=== PATIENT | female | born 1975 | race Two or more races ===

== ENCOUNTER 2020-03-12 09:19 | Emergency (ER) | payer MEDICAID, SELFPAY ==
[2020-03-12 09:40] VITALS: BP 131/63; PULSE 80; RESP 24; TEMP 36.7; O2SAT 99; BMI 43.7
--- NOTE | 2020-03-12 09:50 | CT_ITS ---
EXAMINATION: CT ABDOMEN AND PELVIS WITH CONTRAST CLINICAL INFORMATION: Left flank pain, upper abdominal pain. Prior history splenic rupture. COMPARISON: CT abdomen and pelvis with contrast 12/22/2019 TECHNIQUE: Multidetector volumetric images were obtained from the superior aspect of the liver through the pubic symphysis following administration 85 mL of Omnipaque 350 intravenous contrast. Sagittal and coronal reformatted images were obtained on the technologist's workstation. Oral contrast: No This CT examination was performed using dose optimization techniques as appropriate, variously including the following: *Automated exposure control *Adjustment of mA and/or kV according to patient size (this includes techniques or standardized protocols for targeted exams where dose is matched to indication/reason for exam; i.e. extremities or head) *Use of iterative reconstruction technique DLP: 1001 mGy-cm FINDINGS: LUNG BASES: The visualized lung bases are unremarkable. LIVER, GALLBLADDER, AND BILIARY TREE: The liver is normal in size, shape, and attenuation. No focal hepatic lesion or biliary ductal dilatation is present. The gallbladder is unremarkable with no evidence of radiopaque gallstones, gallbladder wall thickening, or obvious pericholecystic inflammatory changes. PANCREAS: Unremarkable. SPLEEN: Unremarkable. ADRENAL GLANDS: Unremarkable. KIDNEYS AND URETERS: The kidneys are normal in size, shape, and attenuation. No hydronephrosis, hydroureter, or calculi seen. No perinephric stranding. BLADDER: The urinary bladder is fully distended. No focal wall thickening or bladder calculus. GASTROINTESTINAL TRACT: There is moderate stool throughout the colon. No bowel obstruction or focal inflammatory changes in the bowel or mesentery. The appendix is normal. There is no ascites or fluid collection. No pneumatosis or free air. ABDOMINAL WALL: No significant hernia is appreciated. LYMPH NODES: No lymphadenopathy. VASCULAR: Unremarkable. PELVIC VISCERA: No significant adnexal mass or pelvic ascites. OSSEOUS STRUCTURES: Unremarkable. CT/CT abdomen pelvis w con IMPRESSION: 1. No bowel obstruction or inflammatory changes in abdomen or pelvis. Normal appendix. 2. No hydronephrosis, calculi, or perinephric stranding.
--- NOTE | 2020-03-12 09:55 | ED_ITS ---
HPI - Abdominal Pain General Chief Complaint: Anxiety Time Seen by Provider: 03/12/20 09:34 Source: patient Mode of arrival: ambulatory Limitations: no limitations History of Present Illness HPI narrative: 44 y/o female with history of RA on MTX and fibromyalgia who presents from outpatient radiology with anxiety and worsening LUQ/left flank pain. She states she was supposed to get an abd ultrasound today for the pain that she has been experiencing for the last 2 weeks. In 2014 she had a similar episode of pain and was found to have a non-traumatic splenic hematoma. This was noted to be subacute, she was seen by Surgery and sent home with pain management and routine follow up. MD elicited complaint: abdominal pain and flank pain Pertinent past history: other (hx splenic hematoma) Onset (ago): week(s) (2) Pain Consistency: constant Location: LUQ and L flank Severity: similar to previous episodes Quality: stabbing and sharp Radiation: none Migration to: L flank Exacerbating factors: movement Relieving factors: nothing Context: history of similar episodes Associated symptoms: nausea Related Data Date of Last Menstrual Period: 03/05/20 Patient : No Home Medications Medication Instructions Recorded Confirmed Cymbalta 03/12/20 Lasix 03/12/20 Prilosec 03/12/20 methotrexate 03/12/20 vitamin D3-folic acid 03/12/20 Previous Rx's Medication Instructions Recorded cyclobenzaprine 10 mg PO TID PRN #15 tab 03/12/20 famotidine [Pepcid] 40 mg PO BEDTIME #14 tab 03/12/20 Allergies Allergy/AdvReac Type Severity Reaction Status Date / Time aspirin [ASPIRIN] Allergy Intermediate RASH Unverified 01/23/20 16:11 Penicillins [PENICILLINS] Allergy Intermediate RASH Unverified 01/23/20 16:11 codeine [CODEINE] Allergy Unknown VOMITING, Unverified 01/23/20 16:11 nausea and vomiting penicillin V Allergy Unknown hives Verified 12/20/19 00:00 Review of Systems Review of Systems Constitutional: No Fever, No Chills ENT/Mouth: No sore throat, No Rhinorrhea, No Swallowing Difficulty Eyes: No Eye Pain, No Swelling, No Redness Cardiovascular: No Chest Pain, No SOB, No Orthopnea, No Edema Respiratory: No Cough, No Sputum, No Wheezing, No dyspnea Gastrointestinal: + Nausea, No Vomiting, No Diarrhea, + abdominal Pain, No Hematochezia, No Melena Genitourinary: No Dysuria, No Urinary Frequency, No Hematuria Musculoskeletal: No joint pain, + Myalgias (chronic) Skin: No Skin Lesions, No rash Neuro: No Weakness, No Numbness, No Dizziness, No Headache Psych: No Anxiety/Panic, No Depression Heme/Lymph: No Bruising, No Lymphadenopathy Endocrine: No Polyuria, No Polydipsia Physical Exam Vital Signs: Vital Signs: Vital Signs Temp Pulse Resp BP Pulse Ox 03/12/20 12:02 85 16 134/81 98 03/12/20 10:33 18 03/12/20 09:40 98.1 F 80 24 H 131/63 99 Body Mass Index 43.7 Appearance: Alert. Oriented X3. No acute distress. Eyes: Pupils equal, round and reactive to light. ENT: Pharynx normal. Neck: Normal inspection. Neck supple. CVS: Normal heart rate and rhythm. Pulses normal. Respiratory: No respiratory distress. Breath sounds normal. Abdomen: Obese, LUQ tenderness, left flank tenderness. No regound or guarding. Skin: Skin warm and dry. Normal skin color. Normal skin turgor. No rashes, no ecchymosis. Extremities: No lower extremity edema. Neuro: Oriented X 3. No motor deficit. No sensory deficit. Course Course Course Narrative: 44 y/o with hx RA on metotrexate, fibromyalgia presenting with left flank pain, LUQ pain x2 weeks. Similar in nature to prior splenic hematoma which was in 2015. Worse with movement so possible musculoskeletal in nature. Doubt kidney stone. Will get CT scan w/ contrast to further assess as well as labs, coags. IVF, zofran and morphine ordered. Dispo pending results and improvement. Reevaluation(s) Reevaluation #1: CT scan is unremarkable - normal kidneys and spleen. Will treat for possible gastritis and muscular strain. She agrees to follow up with PCP and modify her diet. MDM - Abdominal Pain MDM Narrative Medical decision making narrative: concern for recurrent spontaneous splenic hematoma or possible infarct. CT scan showed normal spleen. Lab Data Result diagrams: 03/12/20 10:27 03/12/20 10:26 Labs: Lab Results 03/12/20 03/12/20 03/12/20 Range/Units 10:26 10:26 10:26 WBC (4.8-10.8) X10*3/uL RBC (4.20-5.50) X10*6/uL Hgb (12.0-16.0) g/dl Hct (37-47) % MCV (80-98) fL MCH (27.0-33.0) pg MCHC (31.0-35.0) g/dl RDW (11.0-16.0) % Plt Count (160-400) X10*3/uL MPV (9.4-12.3) fL Immature Gran % (Auto) (0.0-0.4) % Neut % (Auto) (45-73) % Lymph % (Auto) (20-40) % [place] % (Auto) (2-11) % Eos % (Auto) (0-4) % Baso % (Auto) (0-2) % Lymph # (Auto) (1.2-4.9) X10*3/uL [place] # (Auto) (0.1-1.2) X10*3/uL Eos # (Auto) (0.0-0.4) X10*3/uL Baso # (Auto) (0.0-0.2) X10*3/uL Abs Immat Gran (auto) (0.00-0.03) X10*3/uL Absolute Neuts (auto) (2.0-8.3) X10*3/uL Absolute Nucleated RBC (0.0-0.012) X10*3/uL Nucleated RBC % (auto) (0.0-0.2) /100WBC PT 10.8 (10.8-13.0) SEC INR 0.9 (0.9-1.1) APTT 27.4 (24.1-38.0) SEC Sodium 139 (135-145) mmol/L Potassium 4.3 (3.3-5.1) mmol/l Chloride 105 (96-108) mmol/L Carbon Dioxide 24 (22-29) mmol/L Anion Gap 14 (12-20) BUN 11 (9-16) mg/dL Creatinine 0.74 (0.5-1.4) mg/dL Estim Creat Clear Calc 109.3 Estimated GFR > 60 Random Glucose 89 (60-115) mg/dL Calcium 8.4 (8.4-10.2) mg/dL Total Bilirubin 0.2 (0.0-1.0) mg/dL Direct Bilirubin 0.2 (0.0-0.5) mg/dL AST 22 (5-31) U/L ALT 21 (0-31) U/L Alkaline Phosphatase 51 (39-117) U/L Total Protein 7.5 (6.5-8.0) g/dL Albumin 4.1 (3.5-5.0) g/dL Beta HCG, Quant < 2 Cancelled mIU/mL 03/12/20 Range/Units 10:27 WBC 12.0 H (4.8-10.8) X10*3/uL RBC 4.49 (4.20-5.50) X10*6/uL Hgb 13.8 (12.0-16.0) g/dl Hct 42.0 (37-47) % MCV 93.5 (80-98) fL MCH 30.7 (27.0-33.0) pg MCHC 32.9 (31.0-35.0) g/dl RDW 16.1 H (11.0-16.0) % Plt Count 307 (160-400) X10*3/uL MPV 9.3 L (9.4-12.3) fL Immature Gran % (Auto) 0.3 (0.0-0.4) % Neut % (Auto) 86.6 H (45-73) % Lymph % (Auto) 8.5 L (20-40) % [place] % (Auto) 3.7 (2-11) % Eos % (Auto) 0.5 (0-4) % Baso % (Auto) 0.4 (0-2) % Lymph # (Auto) 1.0 L (1.2-4.9) X10*3/uL [place] # (Auto) 0.5 (0.1-1.2) X10*3/uL Eos # (Auto) 0.1 (0.0-0.4) X10*3/uL Baso # (Auto) 0.1 (0.0-0.2) X10*3/uL Abs Immat Gran (auto) 0.04 H (0.00-0.03) X10*3/uL Absolute Neuts (auto) 10.4 H (2.0-8.3) X10*3/uL Absolute Nucleated RBC 0.000 (0.0-0.012) X10*3/uL Nucleated RBC % (auto) 0.0 (0.0-0.2) /100WBC PT (10.8-13.0) SEC INR (0.9-1.1) APTT (24.1-38.0) SEC Sodium (135-145) mmol/L Potassium (3.3-5.1) mmol/l Chloride (96-108) mmol/L Carbon Dioxide (22-29) mmol/L Anion Gap (12-20) BUN (9-16) mg/dL Creatinine (0.5-1.4) mg/dL Estim Creat Clear Calc Estimated GFR Random Glucose (60-115) mg/dL Calcium (8.4-10.2) mg/dL Total Bilirubin (0.0-1.0) mg/dL Direct Bilirubin (0.0-0.5) mg/dL AST (5-31) U/L ALT (0-31) U/L Alkaline Phosphatase (39-117) U/L Total Protein (6.5-8.0) g/dL Albumin (3.5-5.0) g/dL Beta HCG, Quant mIU/mL Critical Care Time Critical Care Time Critical Care Time: No Discharge Plan Discharge Clinical Impression: Muscle strain Gastritis Qualifiers: Gastritis type: unspecified gastritis Chronicity: acute Gastritis bleeding: without bleeding Qualified Code(s): K29.00 - Acute gastritis without bleeding Patient Disposition: Home, Self-Care Instructions: Gastritis (ED) Additional Instructions: Stick to a bland diet - avoid greasy, fatty or acidic foods. Eat small meals throughout the day, avoid large meals. Take the prescribed antacid medication. Your CT scan today was normal and blood work was unremarkable. Follow up with the GI doctor if your symptoms persist. Follow up with your Primary Care doctor next week. Prescriptions: New famotidine [Pepcid] 40 mg tablet 40 mg PO BEDTIME Qty: 14 RF: 0 cyclobenzaprine 10 mg tablet 10 mg PO TID PRN (Reason: muscle spasm) Qty: 15 RF: 0 No Action Cymbalta RF: 0 Lasix RF: 0 Prilosec RF: 0 methotrexate RF: 0 vitamin D3-folic acid RF: 0 Referrals: Michael Schultz [Physician] - 1 week Interventions: ED Discharge Assessment Last Done: 03/12/20 13:49 Discharge Date/Time: 03/12/20 13:51 [facility] Past Medical History Medical History (Updated 03/12/20 @ 13:20 by MACRINA Epps) Arthritis Date of Last Menstrual Period: 03/05/20 Social History Social History Smoked in Last 30 Days: No Use of substances other than those prescribed or required for medical reasons: No Advance Directives: No Advance Directives Information Provided: No
[2020-03-12] MEDS: 0.9 % Sodium Chloride 1,000 ML 999 ML IVCONT (10:32)
[2020-03-12 10:33] VITALS: RESP 18
[2020-03-12] MEDS: Morphine Sulfate 4 MG/ML CARTRIDGE IVPUSH (10:33)
[2020-03-12] MEDS: ondansetron HCL 4 MG/2 ML VIAL IVPUSH (10:33)
[2020-03-12 10:42] LABS: MANUAL DIFF FLAG NO
--- NOTE | 2020-03-12 10:49 | PC.NURSE ---
iv infiltrated. aware
[2020-03-12 10:51] LABS: Basophils Absolute Auto 0.1 X10*3/uL (0.0-0.2); Basophils Percent Auto 0.4 % (0-2); Eosinophils Absolute Auto 0.1 X10*3/uL (0.0-0.4); Eosinophils Percent Auto 0.5 % (0-4); Hemoglobin 13.8 g/dl (12.0-16.0); Imm Gran Abs Auto 0.04 X10*3/uL (0.00-0.03); Imm Gran Pct Auto 0.3 % (0.0-0.4); Lymphocytes Percent Auto 8.5 % (20-40); Mean Corpuscular HGB Conc 32.9 g/dl (31.0-35.0); Mean Corpuscular Hemoglobin 30.7 pg (27.0-33.0); Mean Corpuscular Volume 93.5 fL (80-98); Mean Platelet Volume 9.3 fL (9.4-12.3); Monocytes Absolute Auto 0.5 X10*3/uL (0.1-1.2); Monocytes Percent Auto 3.7 % (2-11); Neutrophils Absolute Auto 10.4 X10*3/uL (2.0-8.3); Neutrophils Percent Auto 86.6 % (45-73); Platelet Count 307 X10*3/uL (160-400); Red Blood Count 4.49 X10*6/uL (4.20-5.50); Red Cell Distribution Width 16.1 % (11.0-16.0)
[2020-03-12 10:57] LABS: INTERNATIONAL NORM RATIO 0.9 (0.9-1.1); Prothrombin Time 10.8 SEC (10.8-13.0)
[2020-03-12 11:00] LABS: Partial Thromboplastin Time 27.4 SEC (24.1-38.0)
[2020-03-12 11:13] LABS: Alanine Aminotransferase 21 U/L (0-31); Albumin Level 4.1 g/dL (3.5-5.0); Alkaline Phosphatase 51 U/L (39-117); Anion Gap 14 (12-20); Aspartate Amino Transferase 22 U/L (5-31); Bilirubin Direct 0.2 mg/dL (0.0-0.5); Bilirubin Total 0.2 mg/dL (0.0-1.0); Blood Urea Nitrogen 11 mg/dL (9-16); Calcium 8.4 mg/dL (8.4-10.2); Carbon Dioxide 24 mmol/L (22-29); Chloride 105 mmol/L (96-108); Creatinine Clr Calc Pharmacy 109.3; Estimated Glomerular Filt Rate > 60; Glucose Random 89 mg/dL (60-115); Potassium 4.3 mmol/l (3.3-5.1); Sodium 139 mmol/L (135-145); Total Protein 7.5 g/dL (6.5-8.0)
[2020-03-12 11:20] LABS: HCG Quantitative < 2 mIU/mL
--- NOTE | 2020-03-12 11:44 | PC.NURSE ---
pt to ct at this time
[2020-03-12] MEDS: iohexoL 350 MG/ML 100 ML INFUS..BTL 85 ML IV (12:00)
--- NOTE | 2020-03-12 12:01 | PC.NURSE ---
pt returned from ct
[2020-03-12 12:02] VITALS: BP 134/81; PULSE 85; RESP 16; O2SAT 98
== END 2020-03-12 13:51 | disposition home or self-care (01) ==
LOC: HO.ED 09:20
PROVIDERS: Physician Assistant; Emergency Provider Emergency Medicine; PCP Nurse Practitioner Family; Visit Provider Registered Nurse
DX: K29.00 Acute gastritis without bleeding (principal); S39.011A Strain of muscle, fascia and tendon of abdomen, initial encounter; F41.1 Generalized anxiety disorder; F43.0 Acute stress reaction; R10.12 Left upper quadrant pain; X58.XXXA Exposure to other specified factors, initial encounter; Y93.9 Activity, unspecified; Y92.9 Unspecified place or not applicable; Y99.9 Unspecified external cause status; Z79.899 Other long term (current) drug therapy
CPT/HCPCS: 36415; 74177; 80048; 80076; 84702; 85025; 85610; 85730; 96361; 96374; 96375; 99284; J2270; J2405; Q9967

== ENCOUNTER 2020-03-19 11:05 | Outpatient (REF) | payer MEDICAID, SELFPAY ==
[2020-03-19 12:31] LABS: MANUAL DIFF FLAG NO
[2020-03-19 12:50] LABS: Basophils Absolute Auto 0.1 X10*3/uL (0.0-0.2); Basophils Percent Auto 0.7 % (0-2); Eosinophils Absolute Auto 0.2 X10*3/uL (0.0-0.4); Eosinophils Percent Auto 1.7 % (0-4); Hematocrit 41.8 % (37-47); Hemoglobin 13.7 g/dl (12.0-16.0); Imm Gran Abs Auto 0.04 X10*3/uL (0.00-0.03); Imm Gran Pct Auto 0.5 % (0.0-0.4); Lymphocytes Absolute Auto 1.8 X10*3/uL (1.2-4.9); Lymphocytes Percent Auto 20.9 % (20-40); Mean Corpuscular HGB Conc 32.8 g/dl (31.0-35.0); Mean Corpuscular Hemoglobin 30.1 pg (27.0-33.0); Mean Corpuscular Volume 91.9 fL (80-98); Mean Platelet Volume 9.7 fL (9.4-12.3); Monocytes Absolute Auto 0.8 X10*3/uL (0.1-1.2); Monocytes Percent Auto 9.2 % (2-11); Neutrophils Absolute Auto 5.8 X10*3/uL (2.0-8.3); Platelet Count 304 X10*3/uL (160-400); Red Blood Count 4.55 X10*6/uL (4.20-5.50); Red Cell Distribution Width 15.9 % (11.0-16.0); White Blood Count 8.7 X10*3/uL (4.8-10.8)
[2020-03-19 13:13] LABS: Alanine Aminotransferase 20 U/L (0-31); Alkaline Phosphatase 54 U/L (39-117); Anion Gap 10 (12-20); Aspartate Amino Transferase 18 U/L (5-31); Bilirubin Total 0.3 mg/dL (0.0-1.0); Blood Urea Nitrogen 10 mg/dL (9-16); C Reactive Protein 0.35 mg/dL (< or = 0.50); Calcium 8.8 mg/dL (8.4-10.2); Carbon Dioxide 28 mmol/L (22-29); Chloride 104 mmol/L (96-108); Estimated Glomerular Filt Rate > 60; Glucose Random 76 mg/dL (60-115); Potassium 4.4 mmol/l (3.3-5.1); Sodium 138 mmol/L (135-145); Total Protein 7.3 g/dL (6.5-8.0)
== END 2020-03-19 11:06 | disposition home or self-care (01) ==
LOC: HO.LAB 11:05
PROVIDERS: PCP Nurse Practitioner Family; Referring Provider Nurse Practitioner Family; Visit Provider Student in an Organized Health Care Education/Training Program
DX: M06.00 Rheumatoid arthritis without rheumatoid factor, unspecified site (principal); Z79.899 Other long term (current) drug therapy; D72.829 Elevated white blood cell count, unspecified
CPT/HCPCS: 36415; 80053; 85025; 86140; 90686; 99212

== ENCOUNTER 2020-11-20 12:21 | Outpatient (REF) | payer MEDICAID, SELFPAY ==
[2020-11-20 13:03] LABS: MANUAL DIFF FLAG NO
[2020-11-20 13:15] LABS: Basophils Percent Auto 0.6 % (0-2); Eosinophils Absolute Auto 0.2 X10*3/uL (0.0-0.4); Eosinophils Percent Auto 3.4 % (0-4); Hemoglobin 11.5 g/dl (12.0-16.0); Imm Gran Abs Auto 0.01 X10*3/uL (0.00-0.03); Imm Gran Pct Auto 0.1 % (0.0-0.4); Lymphocytes Absolute Auto 1.5 X10*3/uL (1.2-4.9); Lymphocytes Percent Auto 21.6 % (20-40); Mean Corpuscular HGB Conc 30.3 g/dl (31.0-35.0); Mean Corpuscular Hemoglobin 25.5 pg (27.0-33.0); Mean Corpuscular Volume 84.3 fL (80-98); Mean Platelet Volume 9.7 fL (9.4-12.3); Monocytes Absolute Auto 0.4 X10*3/uL (0.1-1.2); Monocytes Percent Auto 5.9 % (2-11); Neutrophils Absolute Auto 4.8 X10*3/uL (2.0-8.3); Neutrophils Percent Auto 68.4 % (45-73); Platelet Count 290 X10*3/uL (160-400); Red Blood Count 4.51 X10*6/uL (4.20-5.50); Red Cell Distribution Width 16.1 % (11.0-16.0)
[2020-11-20 13:58] LABS: Erythrocyte Sedimentation Rate 6 MM/HR (0-20)
[2020-11-20 14:11] LABS: Alanine Aminotransferase 25 U/L (0-31); Albumin Level 3.5 g/dL (3.5-5.0); Alkaline Phosphatase 52 U/L (39-117); Anion Gap 11 (12-20); Aspartate Amino Transferase 24 U/L (5-31); Bilirubin Total 0.4 mg/dL (0.0-1.0); Blood Urea Nitrogen 6 mg/dL (9-16); C Reactive Protein 0.28 mg/dL (< or = 0.50); Calcium 8.6 mg/dL (8.4-10.2); Carbon Dioxide 25 mmol/L (22-29); Chloride 108 mmol/L (96-108); Estimated Glomerular Filt Rate > 60; Glucose Random 126 mg/dL (60-115); Potassium 4.3 mmol/L (3.3-5.1); Sodium 140 mmol/L (135-145); Total Protein 6.6 g/dL (6.5-8.0)
== END 2020-11-20 12:22 | disposition home or self-care (01) ==
LOC: HO.LAB 12:21
PROVIDERS: PCP Nurse Practitioner Family; Visit Provider Student in an Organized Health Care Education/Training Program
DX: M06.00 Rheumatoid arthritis without rheumatoid factor, unspecified site (principal)
CPT/HCPCS: 36415; 80053; 85025; 85652; 86140

== ENCOUNTER 2020-11-24 15:54 | Outpatient (REF) | payer MEDICAID, SELFPAY ==
--- NOTE | ~2020-11-24 | XR_ITS ---
EXAMINATION: XR RIGHT SHOULDER XR RIGHT ELBOW CLINICAL INFORMATION: Rheumatoid arthritis COMPARISON: 11/16/2012 TECHNIQUE: 3 views of the right elbow and 4 views of the right shoulder. FINDINGS: Views of the right shoulder do not demonstrate any evidence of acute fracture or dislocation. No calcific tendinitis. Glenohumeral joint unremarkable. No widening of the coracoclavicular space is seen. There is mild spurring seen about the acromioclavicular joint. 3 views of the right elbow do not demonstrate any evidence of acute fracture or dislocation. Joint spaces are maintained. No significant spurring is seen. No elbow effusion is noted. XR/XR shoulder RT min 2V IMPRESSION: No significant abnormality identified involving the right shoulder and right elbow.
--- NOTE | ~2020-11-24 | XR_ITS ---
EXAMINATION: XR RIGHT SHOULDER XR RIGHT ELBOW CLINICAL INFORMATION: Rheumatoid arthritis COMPARISON: 11/16/2012 TECHNIQUE: 3 views of the right elbow and 4 views of the right shoulder. FINDINGS: Views of the right shoulder do not demonstrate any evidence of acute fracture or dislocation. No calcific tendinitis. Glenohumeral joint unremarkable. No widening of the coracoclavicular space is seen. There is mild spurring seen about the acromioclavicular joint. 3 views of the right elbow do not demonstrate any evidence of acute fracture or dislocation. Joint spaces are maintained. No significant spurring is seen. No elbow effusion is noted. XR/XR elbow RT 2V IMPRESSION: No significant abnormality identified involving the right shoulder and right elbow.
== END 2020-11-24 15:55 | disposition home or self-care (01) ==
LOC: HO.XRAY 15:54
PROVIDERS: PCP Nurse Practitioner Family; Visit Provider Student in an Organized Health Care Education/Training Program
DX: M06.00 Rheumatoid arthritis without rheumatoid factor, unspecified site (principal); Z79.899 Other long term (current) drug therapy
CPT/HCPCS: 73030; 73070; 99212

== ENCOUNTER 2021-04-14 10:56 | Outpatient (REF) | payer MEDICAID, SELFPAY ==
--- NOTE | ~2021-04-14 | US_ITS ---
EXAMINATION: US PELVIS CLINICAL INFORMATION: Excessive, frequent bleeding. COMPARISON: CT scan of the abdomen and pelvis dated 03/12/2020. TECHNIQUE: Ultrasound of the pelvis is performed using both transabdominal and transvaginal transducers along with Doppler. Transvaginal imaging is performed due to inadequate visualization transabdominally. FINDINGS: Uterus: Anteverted/anteflexed measuring 9.6 x 4.8 x 5.6 cm. The endometrial stripe measures up to 1.2 cm without focal abnormality. The cervix is unremarkable. Minimal free fluid in the cul-de-sac. Right ovary: Questionably visualized measuring 1.9 x 1.8 x 1.5 cm. No right adnexal abnormality. Color Doppler showed no abnormal vascular flow. Left ovary: 4.6 x 2.8 x 3.4 cm with a volume of 23 mL. An anechoic dominant follicle measures 2.9 cm. Color Doppler showed no abnormal vascular flow. US/US pelvic and transvaginal IMPRESSION: 1. No significant uterine abnormality. 2. Left ovarian dominant follicle demonstrates benign features. Suboptimal evaluation of the right ovary without overt right adnexal abnormality.
== END 2021-04-14 10:57 | disposition home or self-care (01) ==
LOC: HO.US 10:56
PROVIDERS: Absent Provider Registered Nurse; PCP Registered Nurse; Visit Provider Advanced Practice Midwife
DX: N92.0 Excessive and frequent menstruation with regular cycle (principal)
CPT/HCPCS: 76830; 76856

== ENCOUNTER 2021-05-05 09:10 | Outpatient (REF) | payer MEDICAID, SELFPAY ==
--- NOTE | ~2021-05-05 | MM_ITS ---
EXAMINATION: MM SCREENING DIGITAL BREAST TOMOSYNTHESIS, BILATERAL CLINICAL INFORMATION: Screening. Asymptomatic. The lifetime risk of breast cancer based on the Tyrer-Cuzick Model is 8%. COMPARISON: Mammography: 01/20/2020, 09/25/2018, 02/14/2018, 08/15/2017 TECHNIQUE: Digital breast tomosynthesis is performed in both the craniocaudal and mediolateral oblique views along with computer-aided detection (CAD). Synthesized 2D images are generated from the tomosynthesis. Additional exaggerated left CC view is provided. FINDINGS: There are scattered areas of fibroglandular density (ACR BI-RADS breast composition Category b). There are no significant masses, abnormal calcifications, or other abnormalities. There is stable small circumscribed nodule 12:00 right breast corresponding to a cyst on prior ultrasound. The axilla and skin contours are unremarkable. MM/MM tomosynthesis screening BI IMPRESSION: No mammographic evidence of malignancy. ASSESSMENT: BI-RADS 2: Benign RECOMMENDATION: Routine annual mammography screening. This patient's information was entered into a reminder system with a target due date for their next mammogram.
== END 2021-05-05 09:11 | disposition home or self-care (01) ==
LOC: HO.MAMMO 09:10
PROVIDERS: Visit Provider Registered Nurse
DX: Z12.31 Encounter for screening mammogram for malignant neoplasm of breast (principal)
CPT/HCPCS: 77063; 77067

== ENCOUNTER 2021-05-20 12:39 | Outpatient (REF) | payer MEDICAID, SELFPAY ==
[2021-05-20 14:55] LABS: Hematocrit 35.1 % (37.0-47.0); Mean Corpuscular HGB Conc 31.3 g/dl (31.0-35.0); Mean Corpuscular Hemoglobin 24.9 pg (27.0-33.0); Mean Corpuscular Volume 79.4 fL (80.0-98.0); Mean Platelet Volume 9.3 fL (9.4-12.3); Platelet Count 366 X10*3/uL (160-400); Red Blood Count 4.42 X10*6/uL (4.20-5.50); Red Cell Distribution Width 16.8 % (11.0-16.0); White Blood Count 9.1 X10*3/uL (4.8-10.8)
[2021-05-20 15:41] LABS: HCG Quantitative < 2 mIU/mL
[2021-05-21 13:15] LABS: CT PCR NOT DETECTED (Not Detect.); NG PCR NOT DETECTED (Not Detect.)
[2021-05-26 05:11] LABS: HPV mRNA E6/E7 rflx Not Detected (Not Detected)
== END 2021-05-20 12:40 | disposition home or self-care (01) ==
LOC: HO.LAB 12:39
PROVIDERS: PCP Registered Nurse; Visit Provider Obstetrics & Gynecology
DX: Z01.419 Encounter for gynecological examination (general) (routine) without abnormal findings (principal); N93.9 Abnormal uterine and vaginal bleeding, unspecified
CPT/HCPCS: 36415; 84443; 84702; 85027; 87491; 87591; 87624; 88142; 99202

== ENCOUNTER 2021-06-29 10:46 | Outpatient (REF) | payer MEDICAID, SELFPAY | END 2021-06-29 10:47 | disposition home or self-care (01) | LOC: HO.LAB 10:46 | PROVIDERS: PCP Registered Nurse; Visit Provider Obstetrics & Gynecology | DX: N93.9 Abnormal uterine and vaginal bleeding, unspecified (principal); M79.7 Fibromyalgia; M06.00 Rheumatoid arthritis without rheumatoid factor, unspecified site; Z87.891 Personal history of nicotine dependence; Z98.51 Tubal ligation status; Z88.6 Allergy status to analgesic agent; Z88.0 Allergy status to penicillin | CPT/HCPCS: 58100; 88305 ==

== ENCOUNTER → 2021-07-13 11:38 | Outpatient (BNVA) | payer MEDICAID, SELFPAY | PROVIDERS: Visit Provider Obstetrics & Gynecology ==

== ENCOUNTER 2022-05-04 15:03 | Outpatient (REF) | payer MEDICAID, SELFPAY ==
--- NOTE | ~2022-05-04 | US_ITS ---
EXAMINATION: US EXTREMITY NONVASCULAR CLINICAL INFORMATION: Mass or lump anterior left wrist. COMPARISON: None TECHNIQUE: Limited ultrasound imaging through anterior left wrist was performed. FINDINGS: There is an anechoic area seen along the anterior left lateral wrist adjacent to the radial artery most suggestive of a ganglion measuring 0.7 x 0.4 x 0.7 cm. It has some internal echoes as well. There is no increased vascularity seen. US/US extremity nonvascular IMPRESSION: Nonvascular complex cystic collection along the anterior left lateral wrist adjacent to the radial artery most suggestive of a ganglion cyst.
== END 2022-05-04 15:04 | disposition home or self-care (01) ==
LOC: HO.US 15:03
PROVIDERS: Visit Provider Registered Nurse
DX: R22.9 Localized swelling, mass and lump, unspecified (principal)
CPT/HCPCS: 76882

== ENCOUNTER 2022-05-06 10:18 | Outpatient (REF) | payer MEDICAID, SELFPAY ==
--- NOTE | ~2022-05-06 | MM_ITS ---
EXAMINATION: MM SCREENING DIGITAL BREAST TOMOSYNTHESIS, BILATERAL CLINICAL INFORMATION: Screening. Asymptomatic. The lifetime risk of breast cancer based on the Tyrer-Cuzick Model is 8%. COMPARISON: Mammography: 05/05/2021, 01/20/2020, 09/25/2018; right breast ultrasound 01/20/2020. TECHNIQUE: Digital breast tomosynthesis is performed in both the craniocaudal and mediolateral oblique views along with computer-aided detection (CAD). Synthesized 2D images are generated from the tomosynthesis. Additional bilateral MLO and right cleavage views are provided. FINDINGS: There are scattered areas of fibroglandular density (ACR BI-RADS breast composition Category b). There are no significant masses, abnormal calcifications, or other abnormalities. Parenchymal pattern is similar to prior studies. Again, there is a circumscribed nodule 12:00 right breast corresponding to a cyst on prior imaging. No developing density. The axilla and skin contours are unremarkable. MM/MM tomosynthesis screening BI IMPRESSION: No mammographic evidence of malignancy. ASSESSMENT: BI-RADS 2: Benign RECOMMENDATION: Routine annual mammography screening. This patient's information was entered into a reminder system with a target due date for their next mammogram.
== END 2022-05-06 10:19 | disposition home or self-care (01) ==
LOC: HO.MAMMO 10:18
PROVIDERS: PCP Registered Nurse; Visit Provider Registered Nurse
DX: Z12.31 Encounter for screening mammogram for malignant neoplasm of breast (principal)
CPT/HCPCS: 77063; 77067

== ENCOUNTER → 2022-08-04 14:40 | Outpatient (BNVA) | payer MEDICAID, SELFPAY | PROVIDERS: PCP Registered Nurse; Visit Provider Surgery | DX: L73.2 Hidradenitis suppurativa (principal) | CPT/HCPCS: 99202 ==

== ENCOUNTER 2023-06-13 12:00 | Outpatient (REF) | payer MEDICAID, SELFPAY | END 2023-06-13 12:01 | disposition home or self-care (01) | LOC: HO.MAMMO 12:00 | PROVIDERS: Visit Provider Registered Nurse | DX: Z12.31 Encounter for screening mammogram for malignant neoplasm of breast (principal) | CPT/HCPCS: 77063; 77067 ==

== ENCOUNTER → 2023-06-13 12:45 | Outpatient (BNV) | payer MEDICAID, SELFPAY | PROVIDERS: Visit Provider Radiology Diagnostic Radiology | DX: Z12.31 Encounter for screening mammogram for malignant neoplasm of breast (principal) | CPT/HCPCS: 77063; 77067 ==

== ENCOUNTER 2023-08-30 10:38 | Outpatient (AMB) | payer MEDICAID, SELFPAY ==
--- NOTE | 2023-08-30 10:41 | MHC.OFFVIS ---
Vital Signs 08/30/23 10:48 Height 5 ft 1 in Weight 248 lb BMI 46.9 Intake Visit Reasons: breast pain , mass and nipple discharge Intake Note: This patient presents for an assessment for breast pain, mass and nipple discharge. Pt c/o; reports left breast pain, reports nipple discharge, reports no redness or hot to the touch sensation of breast, reports completed one round of abx and noticed the lump decreased in size and the discharge is less. 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: No Accompanied by: Self / Same As Patient Allergies aspirin [ASPIRIN] Allergy (Intermediate, Verified 08/30/23 10:47) RASH codeine [CODEINE] Allergy (Intermediate, Verified 08/30/23 10:47) VOMITING, nausea and vomiting Penicillins [PENICILLINS] Allergy (Intermediate, Verified 08/30/23 10:47) RASH Medication List - Last Reconciled 08/30/23 by Anthony Elliott MD cyclobenzaprine 10 mg PO BEDTIME duloxetine (Cymbalta) 60 mg PO DAILY ferrous sulfate 0 mg PO furosemide (Lasix) 40 mg PO DAILY hydroxyzine HCl 25 mg PO TID ibuprofen 600 mg PO Q8H PRN leflunomide 20 mg PO DAILY losartan 50 mg PO DAILY omeprazole 40 mg PO DAILY HPI HPI breast pain , mass and nipple discharge: Details: 47-year-old female referred for a nipple discharge. She says that she has noticed this whitish discharge from her left nipple about a month ago. She has seen this couple of times. At some point, she is felt her left breast to be a little swollen. She was given antibiotics by her doctor. She says that the discharge is decreased significantly. The last time she is noticed this was about a week ago . She she actually just had a mammogram for screening last June, and this was unremarkable Currently she denies any palpable mass. Her menarche was at age of 11. Her 1st was the age of 19. She has had 4 pregnancies. She denies a family history of breast cancer. [facility] Medical History (Updated 08/30/23 @ 10:56 by Anthony Elliott MD) Nipple discharge Suppurative hidradenitis Morbid obesity Seronegative rheumatoid arthritis Hx of hidradenitis suppurativa History of fracture of clavicle Back pain Fibromyalgia Arthritis Surgical History Hx of tubal ligation Family History Maternal Grandfather Diabetes Brother Diabetes Stroke Brother Diabetes Mother HTN (hypertension) Social History Alcohol intake: never Patient Tobacco Use Status: Former Tobacco user Female Reproductive History Menstrual Age of Menarche: 11 Review of Systems Const Denies chills and Denies fever(s) Card Denies chest pain, Denies dyspnea and Denies dyspnea on exertion Resp Denies cough, Denies dyspnea and Denies dyspnea on exertion GI Denies hematochezia and Denies change in bowel habits Denies hematuria Musc Denies back pain and Denies limited range of motion Neuro Denies focal weakness and Denies convulsions Psych Denies depression and Denies mood swings Physical Exam Vital Signs: BMI result Body Mass Index 46.9 Const Other: Morbidly obese General: comfortable and no acute distress Orientation/consciousness: patient oriented x3 Neck Neck: Yes no lymphadenopathy Chest Other: No palpable breast masses, no nipple or skin changes, no axillary lymphadenopathy, no discharge from the nipple areolar area; she does have scattering from hidradenitis on the right breast Resp Auscultation: clear to auscultation bilaterally Cardio Rhythm: regular rhythm GI Palpation (GI): Soft to palpation, nontender and no guarding Neuro General: patient oriented x3 Assessment & Plan Assessment & Plan (1) Nipple discharge: Code(s): N64.52 - Nipple discharge Category: Medical Plan: She describes some whitish nipple discharge last month for a few times. This has since resolved. She has not noticed this for the past week. Current exam does not reveal any discharge or any mass or axillary lymphadenopathy. At this time, her symptoms have resolved. It is possible that nipple discharge may have been secondary to some inflammation or infection of her ductal system as she describes having some swelling at that time The negative program from June 2023 is reassuring as well I did tell her that if she notices persistence or any changes on the breast, she should come back to the office to be re-evaluated as she may need to undergo an MRI In the meantime, I emphasized to her the importance of yearly screening mammograms. Coding Level of Care Code New Pt Level 3 (46978) Diagnoses Nipple discharge N64.52
[2023-08-30 10:48] VITALS: BMI 46.9
== END 2023-08-30 10:53 | disposition home or self-care (01) ==
PROVIDERS: PCP Student in an Organized Health Care Education/Training Program; Referring Provider Internal Medicine Geriatric Medicine; Visit Provider Surgery
DX: N64.52 Nipple discharge (principal)
CPT/HCPCS: 99213

== ENCOUNTER → 2023-08-30 10:38 | Outpatient (BNVA) | payer MEDICAID, SELFPAY | PROVIDERS: PCP Student in an Organized Health Care Education/Training Program; Referring Provider Internal Medicine Geriatric Medicine; Visit Provider Surgery | DX: N64.52 Nipple discharge (principal) | CPT/HCPCS: 99212 ==

== ENCOUNTER 2023-09-04 11:57 | Outpatient (REF) | payer MEDICAID, SELFPAY ==
--- NOTE | ~2023-09-04 | MM_ITS ---
EXAMINATION: MM DIAGNOSTIC DIGITAL BREAST TOMOSYNTHESIS, LEFT US BREAST LIMITED, LEFT MAMMOGRAPHY: CLINICAL INFORMATION: The patient presents for palpable lump beneath the left nipple which is tender. The patient also indicates that she has clear left nipple discharge elicited only by squeezing. The discharge is not spontaneous. COMPARISON: Mammography: This study is compared to prior mammograms dating back to 2019. TECHNIQUE: Digital breast tomosynthesis is performed in both the craniocaudal and mediolateral oblique views along with computer-aided detection (CAD). Synthesized 2D images are generated from the tomosynthesis. FINDINGS: There are scattered areas of fibroglandular density (ACR BI-RADS breast composition Category b). There are no significant masses, abnormal calcifications, or other abnormalities. ULTRASOUND: CLINICAL INFORMATION: The patient presents for palpable lump beneath the left nipple which is tender. The patient also indicates that she has clear left nipple discharge elicited only by squeezing. The discharge is not spontaneous. COMPARISON: None TECHNIQUE: Targeted sonographic evaluation was performed using a high frequency linear transducer. Selected archived documentation. FINDINGS: LEFT BREAST: Sonography of the left subareolar region is normal. MM/MM tomosynthesis diagnostic LT IMPRESSION: There are no significant changes from prior study. OVERALL ASSESSMENT: Mammography: BI-RADS 1 - Negative Ultrasound: BI-RADS 1 - Negative RECOMMENDATION: 1. Patient should be managed based on the clinical impression. 2. Otherwise, routine annual screening mammography. Results were provided to the patient at time of visit by the technologist. This patient's information was entered into a reminder system with a target due date for their next mammogram.
== END 2023-09-04 11:58 | disposition home or self-care (01) ==
LOC: HO.MAMMO 11:57
PROVIDERS: PCP Student in an Organized Health Care Education/Training Program; Visit Provider Student in an Organized Health Care Education/Training Program
DX: N64.4 Mastodynia (principal); N64.52 Nipple discharge
CPT/HCPCS: 76642; 77061; 77065

== ENCOUNTER → 2023-09-04 12:30 | Outpatient (BNV) | payer MEDICAID, SELFPAY | PROVIDERS: PCP Student in an Organized Health Care Education/Training Program; Visit Provider Radiology Diagnostic Radiology | DX: N63.20 Unspecified lump in the left breast, unspecified quadrant (principal) | CPT/HCPCS: 76642; 77061; 77065 ==

== ENCOUNTER 2023-10-18 10:41 | Outpatient (REF) | payer MEDICAID, SELFPAY ==
[2023-10-18 11:39] LABS: Hematocrit 40.3 % (37.0-47.0); Hemoglobin 13.1 g/dl (12.0-16.0); Mean Corpuscular HGB Conc 32.5 g/dl (31.0-35.0); Mean Corpuscular Volume 92.2 fL (80.0-98.0); Mean Platelet Volume 10.8 fL (9.4-12.3); Platelet Count 202 X10*3/uL (160-400); Red Blood Count 4.37 X10*6/uL (4.20-5.50); White Blood Count 7.4 X10*3/uL (4.8-10.8)
[2023-10-18 11:55] LABS: Estimated Average Glucose 88 mg/dL; Hemoglobin A1c % 4.7 % (<6.0)
[2023-10-18 12:21] LABS: Alanine Aminotransferase 15 U/L (0-31); Albumin Level 3.8 g/dL (3.5-5.0); Alkaline Phosphatase 40 U/L (39-117); Anion Gap 12 (12-20); Aspartate Amino Transferase 19 U/L (5-31); Bilirubin Total 0.3 mg/dL (0.0-1.0); Blood Urea Nitrogen 10 mg/dL (9-16); Calcium 9.1 mg/dL (8.4-10.2); Carbon Dioxide 25 mmol/L (22-29); Chloride 106 mmol/L (96-108); Cholesterol 140 mg/dL (<200); Estimated Glomerular Filt Rate > 60; Glucose Random 88 mg/dL (60-115); HDL Cholesterol 46 mg/dL (>40); LDL Cholesterol Calculated 81 mg/dL (<100); Potassium 4.1 mmol/L (3.3-5.1); Sodium 139 mmol/L (135-145); Total Protein 7.2 g/dL (6.5-8.0); Triglycerides 69 mg/dL (<150)
[2023-10-18 12:32] LABS: HBS Num1 190.73 mIU/mL (0-7.99); HBc Num1 0.06 S/CO (0.00-0.79); HIV AB/AG Nonreactive (Nonreactive); HIV Num 1 0.06 S/CO (0.00-0.99); Hepatitis B Core Antibody Nonreactive (Nonreactive); Hepatitis B Surface Antigen Negative (Negative); Syphilis Screen Nonreactive (Nonreactive); ~HepC Num1 0.09 S/CO (0.00-0.79); ~Hepatitis B Surface Antibody REACTIVE (Nonreactive); ~Hepatitis C Antibody Nonreactive (Nonreactive)
[2023-10-18 12:39] LABS: TSH reflex Free T4 1.23 uIU/mL (0.32-4.0); Vitamin D 25-OH Total 33.2 ng/mL (>30)
[2023-10-18 13:22] LABS: CT PCR NOT DETECTED (Not Detect.); NG PCR NOT DETECTED (Not Detect.)
== END 2023-10-18 10:42 | disposition home or self-care (01) ==
LOC: HO.HHCL 10:41
PROVIDERS: Visit Provider Student in an Organized Health Care Education/Training Program
DX: Z00.00 Encounter for general adult medical examination without abnormal findings (principal)
CPT/HCPCS: 0353U; 36415; 80053; 80061; 82306; 83036; 84443; 85027; 86704; 86706; 86780; 86803; 87340; 87389

== ENCOUNTER → 2024-01-03 13:33 | Outpatient (RCR) | payer MEDICAID, SELFPAY ==
[2020-04-09 13:18] VITALS: BP 147/95; PULSE 99; RESP 12; TEMP 37.1; O2SAT 99; BMI 45.4
--- NOTE | 2020-04-09 13:29 | PM.HEMONCPN ---
Medical Summary - Medical Summary Date of Service: 04/09/20 Chief complaint: follow-up for right leg DVT. Medical Summary: Diagnosis: 1. Right leg DVT Medical Summary: She and diagnosed with right lower extremity DVT in September 2017. Interval History Interval history: Patient is here in consultation. Diagnosed with blood clot in her right leg, currently she is taking warfarin. She reports feeling much better now, swelling and pain in her right leg has resolved. She hurt her right leg against the leg of her table. Developed redness and swelling, she presented to the emergency department, Doppler on 09/30/17 to be thrombosis of the right anterior tibial vein. Started on Lovenox b.i.d. and warfarin the same day. No prior history of thrombosis. She is not sure about her family, most of them are in [place] and she does not communicate with them. Patient stopped smoking more than 4 years ago and is not on any control pills. [facility] Medical History: Medical History (Last Reviewed 03/19/20 @ 11:21 by Lynette Ng CMA) Arthritis Back pain Fibromyalgia History of fracture of clavicle Hx of hidradenitis suppurativa Seronegative rheumatoid arthritis Family History: Family History (Last Updated 04/09/20 @ 13:24 by Rosie Gould) Maternal Grandfather Diabetes Brother Diabetes Stroke Brother Diabetes Mother HTN (hypertension) Surgical History: Surgical History (Last Updated 03/19/20 @ 11:11 by Lynette Ng CMA) Hx of tubal ligation Home Medications and Allergies Home Medications Medication Instructions Recorded Confirmed Type vitamin D3-folic acid 50 mg PO DAILY 03/12/20 History cyclobenzaprine 10 mg tablet 10 mg PO BEDTIME 03/19/20 04/09/20 History duloxetine 60 mg capsule,delayed 60 mg PO DAILY 03/19/20 04/09/20 History release furosemide 40 mg tablet 40 mg PO DAILY 03/19/20 04/09/20 History ibuprofen 600 mg tablet 600 mg PO Q8H PRN 03/19/20 04/09/20 History methotrexate sodium (PF) 50 mg See Rx Instructions .ROUTE .COMPLEX 03/19/20 04/09/20 History solution for injection omeprazole 40 mg capsule,delayed 40 mg PO DAILY 03/19/20 04/09/20 History release Allergies Allergy/AdvReac Type Severity Reaction Status Date / Time aspirin [ASPIRIN] Allergy Intermediate RASH Verified 03/19/20 11:09 codeine [CODEINE] Allergy Intermediate VOMITING, Verified 03/19/20 11:09 nausea and vomiting penicillin V Allergy Intermediate hives Verified 03/19/20 11:09 Penicillins [PENICILLINS] Allergy Intermediate RASH Verified 03/19/20 11:09 Exam Vital signs: Vital Signs Temp 98.7 F 04/09/20 13:18 Pulse 99 04/09/20 13:18 Resp 12 04/09/20 13:18 BP 147/95 H 04/09/20 13:18 Pulse Ox 99 04/09/20 13:18 Intake & Output 04/08/20 04/09/20 04/09/20 18:59 06:59 18:59 Other: Weight 109.1 kg Weight 109.1 kg Body Mass Index 45.4 Progress Note: A/P (1) Right leg DVT Status: Acute Assessment and plan: This is a 44-year-old female, nonsmoker who was diagnosed with right lower extremity DVT in September 2017. She developed this after minimal trauma. A subsequent Doppler a week later on October 12 show thrombosed vein in the right calf representing lesser saphenous vein consistent with superficial thrombophlebitis. The second study was compared to the previous one, radiologist the second time for that it was superficial vein, involving lesser saphenous vein rather than deep vein clot (not anterior tibial vein as previously read). Pt had been started on warfarin, she was on Lovenox b.i.d. for about a week to 10 days. She is being monitored at the Coumadin clinic. I have recommended 3 months of anticoagulation. Her risk factors being obesity and minimal trauma. She is not sure about her family history, her grandmother had varicose veins. She had partial hypercoagulable workup submitted in October while on warfarin and therefore some of these tests are abnormal. I will repeat them when she stops warfarin. She is negative for factor V Leyden mutation, in 2014 she was tested for lupus anticoagulant and was negative. Discussed possible interaction of medication and diet with warfarin. We discussed monitoring herself for any signs or symptoms of bruising or bleeding. She had blood work recently last month while on warfarin and this was normal. I will see her back in 2 months in followup. Copies To: MARTINEZ CARSON MD - Time Spent With Patient Total time spent is greater than 50% in coordination of care (as documented) at patient's floor/unit and/or counseling patient: 25 - 35 minutes
--- NOTE | 2020-04-09 13:51 | P.CNHO_ITS ---
Subjective - Subjective Chief complaint: consult for leukocytosis. Patient: new to practice Consult date: 04/09/20 Requesting Physician: magy Primary Care Provider: Davide Griffith NP Medical Summary: Diagnosis: 1. Leukocytosis. 2. Right leg DVT : She was diagnosed with right lower extremity DVT in September 2017. HPI - Consult Narrative Reason for consult: Consult for Leukocytosis. Narrative: 44 year old lady is here in consultation, regarding Leukocytosis. She has been diagnosed with rheumatoid arthritis. She has been on methotrexate for more than a year now. It does appear to be helping. Review of her serial WBC count in the computer reveals the following trend: Dec 20 22:51 15.2 Dec 19 11:57 11.6 Jun 11 12:10 12.7 May 04, 18:30 10.0 Mar 29, 16:37 14.5 Feb 12, 11:20 9.8 Nov 11, 00:08 15.7. She Denies any recent fever nor chills. No infectious problems. Previous History: Diagnosed with blood clot in her right leg, currently she is taking warfarin. She hurt her right leg against the leg of her table. Developed redness and swelling, she presented to the emergency department, Doppler on 09/30/17 to be thrombosis of the right anterior tibial vein. Started on Lovenox b.i.d. and warfarin the same day. She reports feeling much better now, swelling and pain in her right leg has resolved. She has been off the warfarin for more than a year now. No prior history of thrombosis. She is not sure about her family, most of them are in [place] and she does not communicate with them. Patient stopped smoking more than 6 years ago and is not on any control pills. Review of Systems - Constitutional Reports system reviewed and no additional complaints, except as documented, Reports fatigue, Reports weight gain, Denies anorexia, Denies fever(s) - Eyes Reports system reviewed and no additional complaints, except as documented - ENT Reports system reviewed and no additional complaints, except as documented - Cardiovascular Reports system reviewed and no additional complaints, except as documented - Respiratory Reports no additional respiratory complaints - Gastrointestinal Reports system reviewed and no additional complaints, except as documented - Genitourinary Reports no additional female genitourinary complaints - Musculoskeletal Reports system reviewed and no additional complaints, except as documented, Reports joint pain, Reports joint swelling Comments: hands, elbows, hips. - Integumentary/Breasts Skin/Breast: Reports no additional skin complaints - Neurologic Reports system reviewed and no additional complaints, except as documented - Psychiatric Reports system reviewed and no additional complaints, except as documented - Endocrine Reports no additional endocrine complaints - Hematologic/Lymphatic Reports system reviewed and no additional complaints, except as documented - Allergic/Immunologic Reports system reviewed and no additional complaints, except as documented [facility] Medical History: Medical History (Last Reviewed 03/19/20 @ 11:21 by Lynette Ng CMA) Arthritis Back pain Fibromyalgia History of fracture of clavicle Hx of hidradenitis suppurativa Seronegative rheumatoid arthritis Functional capacity: independent ambulation Patient : No Family History: Family History (Last Updated 04/09/20 @ 13:24 by Rosie Gould) Maternal Grandfather Diabetes Brother Diabetes Stroke Brother Diabetes Mother HTN (hypertension) Surgical History: Surgical History (Last Updated 03/19/20 @ 11:11 by Lynette Ng CMA) Hx of tubal ligation Home Medications and Allergies Home Medications Medication Instructions Recorded Confirmed Type vitamin D3-folic acid 50 mg PO DAILY 03/12/20 History cyclobenzaprine 10 mg tablet 10 mg PO BEDTIME 03/19/20 04/09/20 History duloxetine 60 mg capsule,delayed 60 mg PO DAILY 03/19/20 04/09/20 History release furosemide 40 mg tablet 40 mg PO DAILY 03/19/20 04/09/20 History ibuprofen 600 mg tablet 600 mg PO Q8H PRN 03/19/20 04/09/20 History methotrexate sodium (PF) 50 mg See Rx Instructions .ROUTE .COMPLEX 03/19/20 04/09/20 History solution for injection omeprazole 40 mg capsule,delayed 40 mg PO DAILY 03/19/20 04/09/20 History release Allergies Allergy/AdvReac Type Severity Reaction Status Date / Time aspirin [ASPIRIN] Allergy Intermediate RASH Verified 03/19/20 11:09 codeine [CODEINE] Allergy Intermediate VOMITING, Verified 03/19/20 11:09 nausea and vomiting penicillin V Allergy Intermediate hives Verified 03/19/20 11:09 Penicillins [PENICILLINS] Allergy Intermediate RASH Verified 03/19/20 11:09 Physical Exam Vital signs: Vital Signs Temp 98.7 F 04/09/20 13:18 Pulse 99 04/09/20 13:18 Resp 12 04/09/20 13:18 BP 147/95 H 04/09/20 13:18 Pulse Ox 99 04/09/20 13:18 Intake & Output 04/08/20 04/09/20 04/09/20 18:59 06:59 18:59 Other: Weight 109.1 kg Weight 109.1 kg - Constitutional Present: no acute distress - Routine HEENT Exam Head: Present: normal inspection ENT: Present: mucous membranes moist - Routine Neck Exam Present: supple - Routine Respiratory Exam Present: CTAB - Routine Cardiovascular Exam Cardiovascular: Present: RRR, S1, S2 - Routine Abdominal Exam Present: soft, nontender - Routine Rectal Exam Patient deferred: digital exam - Routine Extremities Exam Present: nontender - Routine Neurological Exam Present: alert, oriented X3 - Detailed Neurological Exam: Coma Scale Eye Opening: Spontaneous (4) Verbal Response: Oriented (5) Motor Response: Obeys commands (6) [place] Coma Scale Total: 15 - Routine Psychiatric Exam Present: normal affect Hem/Onc Consult Result - Labs CBC & Chem 7: 04/09/20 13:56 04/09/20 13:56 Assessment and Plan (1) Right leg DVT Status: Acute (2) Leukocytosis Status: Acute This is a pleasant 44-year-old lady with a history of rheumatoid arthritis. She has been on methotrexate for a year. She has been noticed to have a leukocytosis, since March of last year. Dec 20 22:51 15.2 Dec 19 11:57 11.6 Jun 11 12:10 12.7 May 04 18:30 10.0 Mar 29 16:37 14.5 Feb 12 11:20 9.8 Nov 11 00:08 15.7. Most likely this is reactive, more like a leukemoid reaction to her collagen vascular disorder. DIFFERENTIAL DIAGNOSIS: 1. Myelo infiltrative disorder: myeloproliferative neoplasm: CML Her WBC count was actually normal on March 26: 7.8. Her diff was normal. This is reassuring. PLAN: I will repeat her blood count today and do a manual diff. Will check LDH. 223. Check a BCR ABL gene transcript for completion's sake: 0.00. She will return in a month for a follow-up visit. Thanks, CC: Dr. Lares. Dr. Greenberg.
[2020-04-09 14:07] LABS: Baso%MD 0.5 %; Eos%MD 1.3 %; Hematocrit 39.2 % (37-47); Hemoglobin 12.9 g/dl (12.0-16.0); IG%MD 0.3 %; Lymph%MD 20.3 %; Mean Corpuscular HGB Conc 32.9 g/dl (31.0-35.0); Mean Corpuscular Hemoglobin 30.3 pg (27.0-33.0); Mean Platelet Volume 9.6 fL (9.4-12.3); Mono%MD 7.1 %; Neut%MD 70.5 %; Platelet Count 270 X10*3/uL (160-400); Red Blood Count 4.26 X10*6/uL (4.20-5.50); Red Cell Distribution Width 15.8 % (11.0-16.0); White Blood Count 11.1 X10*3/uL (4.8-10.8)
[2020-04-09 14:31] LABS: Alanine Aminotransferase 21 U/L (0-31); Albumin Level 3.9 g/dL (3.5-5.0); Alkaline Phosphatase 58 U/L (39-117); Anion Gap 10 (12-20); Aspartate Amino Transferase 18 U/L (5-31); Bilirubin Total 0.3 mg/dL (0.0-1.0); Blood Urea Nitrogen 8 mg/dL (9-16); Calcium 8.4 mg/dL (8.4-10.2); Carbon Dioxide 27 mmol/L (22-29); Chloride 106 mmol/L (96-108); Creatinine Clr Calc Pharmacy 116.6; Estimated Glomerular Filt Rate > 60; Glucose Random 92 mg/dL (60-115); Lactate Dehydrogenase 223 U/L (122-220); Potassium 4.2 mmol/l (3.3-5.1); Sodium 139 mmol/L (135-145); Total Protein 7.1 g/dL (6.5-8.0)
[2020-04-09 14:42] LABS: Basophils Abs Manual 0.1 X10*3/uL (0.0-0.3); Basophils Percent Manual 1 % (0-1); Lymphocytes Absolute Manual 2.2 X10*3/uL (0.6-4.8); Lymphocytes Percent Manual 20 % (20-40); Monocytes Absolute Manual 0.2 X10*3/uL (0.0-1.2); Monocytes Percent Manual 2 % (2-11); Neutrophils Percent Manual 77 % (45-73)
[2020-04-09 14:43] LABS: Band Neutrophils Percent 0 % (3-5); Neutrophils Absolute Manual 8.5 X10*3/uL (2.2-7.9); Platelet Estimate NORMAL (NORMAL); Platelet Morphology Comment NORMAL; RBC Morphology NORMAL
[2020-04-17 15:28] LABS: BCR Prior Result Not Given; P190 BCR/ABL1 Not Detected; P210 BCR/ABL1 Not Detected
== END | disposition home or self-care (01) ==
LOC: HO.ONC 04-09 13:03
PROVIDERS: PCP Nurse Practitioner Family; Referring Provider Student in an Organized Health Care Education/Training Program; Visit Provider Internal Medicine Medical Oncology
DX: D72.829 Elevated white blood cell count, unspecified (principal); Z86.718 Personal history of other venous thrombosis and embolism; M06.9 Rheumatoid arthritis, unspecified; Z79.01 Long term (current) use of anticoagulants; Z79.899 Other long term (current) drug therapy
CPT/HCPCS: 36415; 80053; 81206; 81207; 83615; 85007; 85027; 99204

== ENCOUNTER 2024-04-10 12:04 | Outpatient (REF) | payer MEDICAID, SELFPAY ==
[2024-04-10 12:19] LABS: MANUAL DIFF FLAG NO
[2024-04-10 12:27] LABS: Basophils Absolute Auto 0.1 X10*3/uL (0.0-0.2); Basophils Percent Auto 0.8 % (0-2); Eosinophils Absolute Auto 0.2 X10*3/uL (0.0-0.4); Eosinophils Percent Auto 2.9 % (0-4); Hematocrit 40.3 % (37.0-47.0); Hemoglobin 13.5 g/dl (12.0-16.0); Imm Gran Abs Auto 0.01 X10*3/uL (0.00-0.03); Imm Gran Pct Auto 0.1 % (0.0-0.4); Lymphocytes Absolute Auto 1.9 X10*3/uL (1.2-4.9); Lymphocytes Percent Auto 25.7 % (20-40); Mean Corpuscular HGB Conc 33.5 g/dl (31.0-35.0); Mean Corpuscular Hemoglobin 30.7 pg (27.0-33.0); Mean Corpuscular Volume 91.6 fL (80.0-98.0); Monocytes Percent Auto 13.3 % (2-11); Neutrophils Absolute Auto 4.1 x10*3/uL (2.0-8.3); Neutrophils Percent Auto 57.2 % (45-73); Platelet Count 218 X10*3/uL (160-400); Red Cell Distribution Width 13.9 % (11.0-16.0); White Blood Count 7.2 X10*3/uL (4.8-10.8)
[2024-04-10 12:57] LABS: Aspartate Amino Transferase 33 U/L (5-31); C Reactive Protein 0.26 mg/dL (< or = 0.50); Estimated Glomerular Filt Rate > 60
[2024-04-10 13:05] LABS: Erythrocyte Sedimentation Rate 3 MM/HR (0-20)
[2024-04-10 13:12] LABS: Alanine Aminotransferase 29 U/L (0-31)
[2024-04-10 14:58] LABS: Rheumatoid Factor < 13.0 IU/mL (<15.0)
[2024-04-12 19:47] LABS: Cyclic Citrullinated Peptide <16 UNITS
[2024-04-13 21:14] LABS: TS Negative Control Passed; TS Panel A 0; TS Panel B 0; TS Positive Control Passed; TSpotTB Negative (Negative)
== END 2024-04-10 12:05 | disposition home or self-care (01) ==
LOC: HO.LAB 12:04
PROVIDERS: PCP Student in an Organized Health Care Education/Training Program; Visit Provider Internal Medicine Rheumatology
DX: M06.00 Rheumatoid arthritis without rheumatoid factor, unspecified site (principal); Z79.899 Other long term (current) drug therapy
CPT/HCPCS: 36415; 82565; 84450; 84460; 85025; 85652; 86140; 86200; 86431; 86481

== ENCOUNTER 2024-04-18 08:56 | Outpatient (AMB) | payer MEDICAID, SELFPAY ==
--- NOTE | 2024-04-18 09:31 | MHC.OFFVIS ---
Vital Signs 04/18/24 09:32 Height 5 ft 1 in Weight 229 lb 8.019 oz BMI 43.4 BP 108/72 Blood Pressure Location Lt brachial Position Sitting Pulse 71 Pulse Source Pulse Oximeter Pulse Oximetry (%) 97 Oxygen Delivery Method Room Air Intake Visit Reasons: RA Intake Note: Patient presents for RA follow up today. Allergies aspirin [ASPIRIN] Allergy (Intermediate, Verified 04/18/24 09:34) RASH codeine [CODEINE] Allergy (Intermediate, Verified 04/18/24 09:34) VOMITING, nausea and vomiting Penicillins [PENICILLINS] Allergy (Intermediate, Verified 04/18/24 09:34) RASH HPI HPI RA: Details: She is doing well. No new joint swelling. No recent infections. [facility] Medical History (Updated 04/19/24 @ 12:19 by Marquez Dick MD) Nipple discharge Suppurative hidradenitis Morbid obesity Seronegative rheumatoid arthritis Hx of hidradenitis suppurativa History of fracture of clavicle Back pain Fibromyalgia Arthritis Surgical History Hx of tubal ligation Family History Maternal Grandfather Diabetes Brother Diabetes Stroke Brother Diabetes Mother HTN (hypertension) Social History Alcohol intake: never Patient Tobacco Use Status: Former Tobacco user Female Reproductive History Menstrual Age of Menarche: 11 Review of Systems Const All systems reviewed & are unremarkable except as noted in HPI and below Physical Exam Vital Signs: Last Vital Signs Pulse 71 04/18/24 09:32 BP 108/72 04/18/24 09:32 Pulse Ox 97 04/18/24 09:32 Oxygen Delivery Method Room Air 04/18/24 09:32 BMI result Body Mass Index 43.4 Const Other: General: Comfortable CVS: RRR Respiratory: clear to auscultation bilaterally. Good respiratory effort Skin: No lesions seen MSK: No synovitis or tenderness of any joints. Good range of motion of upper extremities and lower extremities. Assessment & Plan Assessment & Plan (1) Seronegative rheumatoid arthritis: Comment: Diagnosed at age 34. Initially on monotherapy for methotrexate for a long time. She developed panic attacks with subcutaneous methotrexate. Leflunomide added 2021 to present. Hydroxychloroquine added 07/25/2021 to present. She is in remission on triple therapy with hydroxychloroquine, leflunomide and sulfasalazine. Code(s): M06.00 - Rheumatoid arthritis without rheumatoid factor, unspecified site Category: Medical Plan: Labs for disease and drug monitoring on high-risk medication ordered Continue hydroxychloroquine 400 mg daily. VF 2022. I have asked her to call ophthalmology for hydroxychloroquine surveillance exam. 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
[2024-04-18 09:32] VITALS: BP 108/72; PULSE 71; O2SAT 97; BMI 43.4
== END 2024-04-18 11:23 | disposition home or self-care (01) ==
PROVIDERS: PCP Student in an Organized Health Care Education/Training Program; Visit Provider Internal Medicine Rheumatology
DX: M06.00 Rheumatoid arthritis without rheumatoid factor, unspecified site (principal); Z79.899 Other long term (current) drug therapy
CPT/HCPCS: 99214

== ENCOUNTER → 2024-04-18 08:56 | Outpatient (BNVA) | payer MEDICAID, SELFPAY | PROVIDERS: PCP Student in an Organized Health Care Education/Training Program; Visit Provider Internal Medicine Rheumatology | DX: M06.00 Rheumatoid arthritis without rheumatoid factor, unspecified site (principal); Z79.899 Other long term (current) drug therapy | CPT/HCPCS: 99212 ==

== ENCOUNTER 2024-07-16 12:40 | Outpatient (AMB) | payer MEDICAID, SELFPAY ==
--- NOTE | 2024-07-16 12:44 | MHC.OFFVIS ---
Vital Signs 07/16/24 12:46 Height 5 ft 1 in Weight 226 lb 6.636 oz BMI 42.8 BP 140/90 H Blood Pressure Location Lt brachial Position Sitting Pulse 87 Pulse Source Pulse Oximeter Pulse Oximetry (%) 96 Oxygen Delivery Method Room Air Intake Visit Reasons: RA Intake Note: Patient presents for RA follow up today. Allergies aspirin [ASPIRIN] Allergy (Intermediate, Verified 07/16/24 12:47) RASH codeine [CODEINE] Allergy (Intermediate, Verified 07/16/24 12:47) VOMITING, nausea and vomiting Penicillins [PENICILLINS] Allergy (Intermediate, Verified 07/16/24 12:47) RASH HPI HPI RA: Details: She is having pain in lateral sides of hips keeping up at night in the last two months. Left knee pain is worse>right knee. Pain at rest and with walking in knees. She is limping. Right hand is painful. MS 2 hours. Denies recent infection. PFSH Medical History Nipple discharge Suppurative hidradenitis Morbid obesity Seronegative rheumatoid arthritis Hx of hidradenitis suppurativa History of fracture of clavicle Back pain Fibromyalgia Arthritis Surgical History Hx of tubal ligation Family History Maternal Grandfather Diabetes Brother Diabetes Stroke Brother Diabetes Mother HTN (hypertension) Social History Alcohol intake: never Patient Tobacco Use Status: Former Tobacco user Female Reproductive History Menstrual Age of Menarche: 11 Review of Systems Const All systems reviewed & are unremarkable except as noted in HPI and below Physical Exam Vital Signs: Last Vital Signs Pulse 87 07/16/24 12:46 BP 140/90 H 07/16/24 12:46 Pulse Ox 96 07/16/24 12:46 Oxygen Delivery Method Room Air 07/16/24 12:46 BMI result Body Mass Index 42.8 Const Other: General: Comfortable CVS: RRR Respiratory: clear to auscultation bilaterally. Good respiratory effort Skin: No lesions seen MSK: Tender to palpate bilateral PIP. No synovitis. Bilateral trochanteric bursa tenderness found. Localized tender to bilateral groin regions. Tender to palpate right knee along joint line. No crepitus. Normal range of motion of upper extremities and lower extremities. Assessment & Plan Assessment & Plan (1) Seronegative rheumatoid arthritis: Comment: She has recently developed increased polyarthralgias. Rheumatology history: Seronegative. Diagnosed at age 34. Initially on monotherapy for methotrexate for a long time. She developed panic attacks with subcutaneous methotrexate. Leflunomide added 2021 to present. Hydroxychloroquine added 07/25/2021 to present. Code(s): M06.00 - Rheumatoid arthritis without rheumatoid factor, unspecified site Category: Medical Plan: Labs for disease and drug monitoring on high-risk medication ordered Continue hydroxychloroquine 400 mg daily. 2022. I am requesting OCT exam from January 2024. Continue leflunomide 20 mg daily Continue sulfasalazine 500 mg twice a day Start meloxicam 15 mg daily. If no benefit on meloxicam, she will call office. I will then increase sulfasalazine to 1000 mg twice a day Return to clinic in 3 months (2) Hip pain: Comment: She has localized pain to bilateral trochanteric bursae likely due to bursitis along with groin pain. I am evaluating further for hip joint pathology contributing to her pain with x-rays. She has agreed to physical therapy for hip and lower extremity strengthening. Code(s): M25.559 - Pain in unspecified hip Category: Medical Qualifiers: Laterality: bilateral Qualified Code(s): M25.551 - Pain in right hip; M25.552 - Pain in left hip Plan: Bilateral hip x-rays ordered PT ordered Start meloxicam 15 mg daily Return to clinic in 3 months (3) Knee pain: Comment: Bilateral knee pain with right knee pain worse than left. Code(s): M25.569 - Pain in unspecified knee Category: Medical Qualifiers: Chronicity: chronic Laterality: bilateral Qualified Code(s): M25.561 - Pain in right knee; M25.562 - Pain in left knee; G89.29 - Other chronic pain Plan: X-ray bilateral knees ordered Return to clinic in 3 months (4) Hip pain: Comment: She has localized pain to bilateral trochanteric bursae likely due to bursitis along with groin pain. I am evaluating further for hip joint pathology contributing to her pain with x-rays. She has agreed to physical therapy for hip and lower extremity strengthening. Code(s): M25.559 - Pain in unspecified hip Category: Medical (5) Knee pain: Comment: Bilateral knee pain with right knee pain worse than left. 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 Orders: Orders Alanine Aminotransferase Today Z79.60 - half-way (current) use of unspecified immunomodulators and immunosuppressants Complete Blood Count Auto Diff Today Z79.60 - termite control service representative (current) use of unspecified immunomodulators and immunosuppressants Creatinine Today Z79.60 - termite control service representative (current) use of unspecified immunomodulators and immunosuppressants Erythrocyte Sedimentation Rate Today Z79.899 - Other assisted (current) drug therapy C Reactive Protein Today Z79.899 - Other assisted (current) drug therapy XR knee RT 2V Today M25.559 - Pain in unspecified hip, M25.569 - Pain in unspecified knee PT Evaluation and Treatment Today M25.569 - Pain in unspecified knee, M70.61 - Trochanteric bursitis, right hip, M70.62 - Trochanteric bursitis, left hip Aspartate Amino Transferase Today Z79.60 - termite control service representative (current) use of unspecified immunomodulators and immunosuppressants XR knee LT 2V Today M25.559 - Pain in unspecified hip, M25.569 - Pain in unspecified knee XR hips MIREYA min 3V Today M25.559 - Pain in unspecified hip Medications: New meloxicam Take with food 15 mg PO DAILY 30 tabs 2RF Refilled leflunomide Dispense 90 day supply. 20 mg PO DAILY 90 tabs 0RF sulfasalazine give with food (meal/snack) 0.5 grams PO BID 180 tabs 0RF Coding Level of Care Code Est Pt Level 4 (27862) Complex EM visit Add On G2211 Diagnoses Seronegative rheumatoid arthritis M06.00 Bilateral hip pain M25.551; M25.552 Laterality: bilateral Chronic pain of both knees M25.561; M25.562; G89.29 Chronicity: chronic Laterality: bilateral Other assisted (current) drug therapy Z79.899
[2024-07-16 12:46] VITALS: BP 140/90; PULSE 87; O2SAT 96; BMI 42.8
--- OUTSIDE RECORDS SUMMARY | 2024-07-16 15:12 | XMS_ITS | Encounter Summary ---
Author Organization [employer] Address [address] [place] [address] [address] [place] [address] Care Team Providers Care Matcher Operator Name Role Phone Lori Hernandez MD Primary Care Pro vider Reason for Visit * Reason Comments Med Refill Encounter Details Date Type Department Care Team ([facility] st Contact Info) Description 06/16/[address] [facility] [address] [place], [place] [phone] Lori Hernandez MD [address] [place] [address] Anxiety Social History Tobacco Use Types Packs/Day Years Used Date Smoking Tobacco: Never Smokeless Tobacco: Never Alcohol Use Standard Drinks/Week Comments Yes 0 (1 standard drink = 0.6 oz pur e alcohol) social Depression Answer Date Recorded Patient Health Questionnaire-9 Score 0 06/07/2023 Patient Health Questionnaire-9 Score 0 06/07/2023 Last PHQ-9: Questionnaire Data Not on file 0 06/07/2023 Housing Stability Answer Date Recorded What is your housing situation today? I have erinn hudson 02/28/[address] you li ve. Do you have problems with any of the following? None of the above 02/28/2023 Food Insecurity Answer Date Recorded Within the past 12 months, y ou worried that your food would run out before you got money to buy more: Never True 02/28/2023 Within the past 12 months,th e food you bought just didn't last and you didn't have enough money to get more: Never True Transportation Answer Date Recorded In the past 12 months, has l ack of transportation kept you from medical appts, meetings, work or from getting things needed for daily living? No 02/28/2023 Utilities Answer Date Recorded In the past 12 months, has t he electric, gas, oil or water company threatened to shut off services in your home? No 02/28/2023 Depression Answer Date Recorded Patient Health Questionnaire-2 Score 0 06/07/2023 Internet Access Answer Date Recorded Internet Access Q1 Yes 01/05/2024 Internet Access Q2 Not on file 01/05/2024 Comments Unknown Sex and Gender Information Value Date Recorded Sex Assigned at Female 03/07/2022 10:18 AM EDT Legal Sex Female 10:18 AM EDT Gender Identity Female 03/07/2022 10:18 AM EDT Sexual Orientation Straight 03/07/2022 10 :18 AM EDT documented as of this encounter Plan of Treatment Upcoming Encounters Date Type Department Care Team (Late st Contact Info) Description 07/22/2024 11:30 AM EDT Clinical Support [facility] [address] [place] [id number] 08/06/2024 1:00 PM EDT Office Visit [facility] [address] [place] [address] Lori Hernandez MD [address] [place] [address] 10/15/2024 1:00 PM EDT Office Visit [facility] [address] [place] [address] Prakash, Fernanda, OD [address] [place] [address] documented as of this encounter Visit Diagnoses Diagnosis Anxiety Anxiety state, unspecified documented in this encounter Additional Health Concerns Assessment Noted Time PHQ-9 Depression Total Score: 0 06/07/19 24 2:28 PM EST documented as of this encounter Care Teams Matcher Operator Relationship Specialty Start Date End Date Lori Hernandez MD [address] [place] [address] PCP - General Internal Medicine 10/15/22 documented as of this encounter
--- OUTSIDE RECORDS SUMMARY | 2024-07-16 15:12 | XMS_ITS | Encounter Summary ---
Author Organization [employer] Address [address] 7t [place] [address] Care Team Providers Care Laundry Machine Tender Name Role Phone Lori Hernandez MD Primary Care Pro vider Reason for Visit * Reason Comments Med Refill Encounter Details Date Type Department Care Team ([facility] st Contact Info) Description 07/15/2024 Refill [facility] MED & PEDS [address] [place], [place] [phone] Heather Valencia, [address] [place] [address] Social History Tobacco Use Types Packs/Day Years [...] is your housing situation today? I have erinnreebcca hudson 02/28/[address] you [...] Description 07/22/2024 11:30 AM EDT Clinical Support [facility] MEDICINE [address] [place] [address] 08/06/2024 1:00 PM EDT Office Visit [facility] MEDICINE [address] [place] [address] Lori Hernandez MD [address] [place] [address] 10/15/2024 1:00 PM EDT Office Visit [facility] OPTOMETRY [address] [place] [address] Prakash, Fernanda, OD [address] [place] [address] documented as of this encounter Visit Diagnoses Not on filedocumented in this encounter Additional Health Concerns Assessment Noted Time PHQ-9 Depression Total Score: 0 06/07/19 24 2:28 PM EST documented as of this encounter Care Teams Laundry Machine Tender Relationship Specialty Start Date End Date Lori Hernandez MD [address] [place] [address] PCP - General Internal Medicine 10/15/22 documented as of this encounter
--- OUTSIDE RECORDS SUMMARY | 2024-07-16 15:12 | XMS_ITS | Encounter Summary ---
Author Organization [employer] Address [address] [facility] 7t [place] [address] Care Team Providers Care Sign Maker Name Role Phone Lori Hernandez MD Primary Care Pro vider Encounter Details Date Type Department Care Team (Latest Contact Info) Description 07/06/2024 Travel Social History Tobacco Use Types Packs/Day Years [...] Description 07/22/2024 11:30 AM EDT Clinical Support [facility] MEDICINE [address] [place] [address] 08/06/2024 1:00 PM EDT Office Visit [facility] MEDICINE [address] [place] [address] Lori Hernandez MD [address] [place] [address] 10/15/2024 1:00 PM EDT Office Visit [facility] OPTOMETRY [address] [place] [address] Prakash, Fernanda, OD [address] [place] [address] documented as of this encounter Visit Diagnoses Not on filedocumented in this encounter Additional Health Concerns Assessment Noted Time PHQ-9 Depression Total Score: 0 06/07/19 24 2:28 PM EST documented as of this encounter Care Teams Sign Maker Relationship Specialty Start Date End Date Lori Hernandez MD [address] [place] [address] PCP - General Internal Medicine 10/15/22 documented as of this encounter
--- OUTSIDE RECORDS SUMMARY | 2024-07-16 15:12 | XMS_ITS | Encounter Summary ---
Author Organization [employer] Address [address] [place] [address] 7 [place] [address] Care Team Providers Care Critical Care Unit Nurse Name Role Phone Nohemi Queen MERCHANT MILLER Primary Care Provider [phone] Lori Hernandez MD Primary Care Pro vider Encounter Details Date Type Department Care Team (Late Contact Info) Description 05/12/2022 Orders Only [facility] CHC MED & PEDS [address] [place], [place] [phone] Heather Hammond LPN Social History Tobacco Use Types Packs/Day Years Used Date Smoking Tobacco: Never Assessed Comments Unknown Sex and Gender Information Value Date Recorded Sex Assigned at Female 03/07/2022 10:18 AM EDT Legal Sex Female 10:18 AM EDT Gender Identity Female 03/07/2022 10:18 AM EDT Sexual Orientation Straight 03/07/2022 10 :18 AM EDT COVID-19 Exposure Response Date Recorded In the last 10 days, have yo u been in contact with someone who was confirmed or suspected to have Coronavirus/COVID-19? No / Unsure 05/11/2022 9:20 AM EST documented as of this encounter Plan of Treatment Upcoming Encounters Date Type Department Care Team (Late Contact Info) Description 07/22/2024 11:30 AM EDT Clinical Support [address] [address] 08/06/2024 1:00 PM EDT Office Visit [address] [address] Lori Hernandez MD [address] [place] [address] 10/15/2024 1:00 PM EDT Office Visit [facility] OPTOMETRY [address] [place], [place] [phone] Fernanda Randall, OD [address] [place], [place] [phone] documented as of this encounter Visit Diagnoses Not on filedocumented in this encounter Care Teams Critical Care Unit Nurse Relationship Specialty Start Date End Date Nohemi Queen FNP PCP - General Family Medicine 03/03/21 10/14/22 Lori Hernandez MD [address] [place] [address] PCP - General Internal Medicine 10/15/22 documented as of this encounter
--- OUTSIDE RECORDS SUMMARY | 2024-07-16 15:12 | XMS_ITS | Encounter Summary ---
Author Organization [employer] Address [address] [place] [address] 7 [place] [address] Care Team Providers Care Bulk Intake Worker Name Role Phone Lori Hernandez MD Primary Care Pro vider Reason for Visit * Reason Comments Med Refill Encounter Details Date Type Department Care Team ([facility] st Contact Info) Description 06/28/2024 Refill [facility] MEDICINE [address] [place], [place] [phone] Lori Hernandez MD [address] [place] [address] Social History Tobacco Use Types Packs/Day Years [...] Description 07/22/2024 11:30 AM EDT Clinical Support [facility] MEDICINE [address] [place] [address] 08/06/2024 1:00 PM EDT Office Visit [facility] MEDICINE [address] [place] [address] Lori Hernandez MD [address] [place] [address] 10/15/2024 1:00 PM EDT Office Visit [facility] OPTOMETRY [address] [place] [address] Parkash, Fernanda, OD [address] [place] [address] documented as of this encounter Visit Diagnoses Not on filedocumented in this encounter Additional Health Concerns Assessment Noted Time PHQ-9 Depression Total Score: 0 06/07/19 24 2:28 PM EST documented as of this encounter Care Teams Bulk Intake Worker Relationship Specialty Start Date End Date Lori Hernandez MD [address] [place] [address] PCP - General Internal Medicine 10/15/22 documented as of this encounter
--- OUTSIDE RECORDS SUMMARY | 2024-07-16 15:12 | XMS_ITS | Encounter Summary ---
Author Organization [employer] [facility] Address [address] [place] [address] Care Team Providers Care Disability Rater Name Role Phone Lori Hernandez MD Primary Care Pro vider Encounter Details Date Type Department Care Team (Late st Contact Info) Description 02/10/2023 Abstract [facility] MEDICINE [address] [place] [address] [phone] She Davenport Social History Tobacco Use Types Packs/Day Years Used Date Smoking Tobacco: Never Smokeless Tobacco: Never Depression Answer Date Recorded Patient Health Questionnaire-9 Score 0 10/14/2022 Depression Answer Date Recorded Patient Health Questionnaire-2 Score 0 10/14/2022 Comments Unknown Sex and Gender Information Value [...] Description 07/22/2024 11:30 AM EDT Clinical Support [facility] MEDICINE [address] [place] [phone] 08/06/2024 1:00 PM EDT Office Visit [facility] MEDICINE [address] [place], [place] [phone] Lori Hernandez MD [address] [place], [place] [phone] 10/15/2024 1:00 PM EDT Office Visit [facility] OPTOMETRY [address] [place] [phone] Fernanda Randall, OD [address] [place], [place] [phone] documented as of this encounter Procedures Procedure Name Priority Date/Time Associated Diagnosis Comments PAP/HPV Routine 05/20/2021 documented in this encounter Results * Pap Smear (05/20/2021) Pap Negative for intraephithelial lesion or malignancy Negative for intraephithelial lesion or malignancy, Other HPV Undetected us Historical Provider HEALTH MAINTENANCE Final Result documented in this encounter Visit Diagnoses Not on filedocumented in this encounter Additional Health Concerns Assessment Noted Time PHQ-9 Depression Total Score: 0 10/15/19 23 11:02 AM EDT documented as of this encounter Care Teams Disability Rater Relationship Specialty Start Date End Date Lori Hernandez MD 230 [place], [place] [phone] PCP - General Internal Medicine 10/15/22 documented as of this encounter
--- OUTSIDE RECORDS SUMMARY | 2024-07-16 15:12 | XMS_ITS | Encounter Summary ---
Author Organization [employer] Address [address] [facility] 7t [place] [address] Care Team Providers Care Program Production Specialist Name Role Phone Lori Hernandez MD Primary Care Pro vider Reason for Visit * Reason Onset Date Comments Nurse Triage 07/05/2024 Encounter Details Date Type Department Care Team ([facility] st Contact Info) Description 07/05/2024 Telephone [facility]ICINE [address] [place], [place] [phone] Tram Esparza, RN 230 [place] [address] Nurse Triage Social History Tobacco Use Types Packs/Day Years [...] AM EDT documented as of this encounter Miscellaneous Notes * Telephone Encounter - Tram Esparza RN - 07/05/2024 11:49 AM EST [facility] Reason: My blood pressure is been very high. I have readings of 150/100, 147/ 90 etc..I noticed my losartan are 50ml. I wondering if you can raise it up to 100ml. I don't know if I should take an extra pill so I haven't. Telephone call placed to pt to triage. Pt reports blood pressure recently has been 140s-150s/90s-100. While having elevated blood pressure before she experienced chest pressure but it isn't happeningnow. Denied any other Sx now or previously such as dizziness and headache. Reports always has blurry vision as a side effect from one of her medications. Has been consistently taking losartan 50mg, took it today. Has not checked blood pressure today. Explained that since she hasn't seen PCP since December and is overdue for follow up, we can keep appt 08/06. However, I would recommend she be seen sooner for blood pressure by another provider. Pt agreeable. Booked appt for Monday. Advised she continue to monitor her blood pressure, call us if any questions or concerns or if blood pressure elevatedover the weekend. Pt verbalized understanding and denied having any further questions or concerns at this time. documented in this encounter Plan of Treatment Upcoming Encounters Date Type Department Care Team (Late st Contact Info) Description 07/22/2024 11:30 AM EDT Clinical Support [facility] [address] [place] [address] 08/06/2024 1:00 PM EDT Office Visit [facility] [address] [place] [address] Lori Hernandez MD 230 [place] [address] 10/15/2024 1:00 PM EDT Office Visit [facility] OPTOMETRY [address] [place], [place] [phone] Fernanda Randall, OD [address] [place] [address] documented as of this encounter Visit Diagnoses Not on filedocumented in this encounter Additional Health Concerns Assessment Noted Time PHQ-9 Depression Total Score: 0 06/07/19 24 2:28 PM EST documented as of this encounter Care Teams Program Production Specialist Relationship Specialty Start Date End Date Lori Hernandez MD [address] [place] [phone] PCP - General Internal Medicine 10/15/22 documented as of this encounter
--- OUTSIDE RECORDS SUMMARY | 2024-07-16 15:12 | XMS_ITS | Encounter Summary ---
Author Organization [employer] Address [address] [place] [address] 7 [place] [address] Care Team Providers Care Shirring Machine Operator Automatic Name Role Phone Lori Hernandez MD Primary Care Pro vider Reason for Referral * Cardiology (Routine) - Closed Specialty Diagnoses / Procedures Referred By Contjocelyn t Referred To Contact Diagnoses Essential hypertension Procedures ECG 12 lead Carolann Echols FNP [address] [place] [address] Phone: tel: fax: [address] Phone: tel: fax: Referral ID Status Reason Start Date Expiration Date Visits Re quested Visits Authorized [id number] Closed 07/08/2024 07/08/2025 1 1 Reason for Visit * Reason Comments sick visit Encounter Details Date Type Department Care Team (Late st Contact Info) Description 07/08/2024 11:30 AM EST Office Visit [facility] MEDICINE [address] [place], [place] [phone] Carolann Echols FNP [address] [place], [place] [phone] Essential hypertension (Primary Dx) Social History Tobacco Use Types Packs/Day Years [...] AM EDT documented as of this encounter Last Filed Vital Signs Vital Sign Reading Time Taken Comments Blood Pressure 138/90 07/08/2024 11:59 AM EST Pulse 75 07/08/2024 11:59 AM EST Temperature 36.5 ??C (97.7 ??F) 07/08/2024 11:[address] Respiratory Rate 20 07/08/2024 11:59 AM EST Oxygen Saturation 98% 07/08/2024 11:59 AM EST Inhaled Oxygen Concentration - - Weight 104 kg (229 lb 3.2 oz) 07/08/2024 11:59 A M EST Height 154.9 cm (5' 1 ) 07/08/2024 11:59 AM EST Body Mass Index 43.31 07/08/2024 11:59 AM EST documented in this encounter Progress Notes * [facility], TONG HOOKER - 07/08/2024 11:30 AM EST SUBJECTIVE: Lesley Gordon is a 48 y.o. year old female with hypertension who presents for evaluation of elevated blood pressure HPI Patient reports elevated home BP readings x 1 month-150's/90's. Pt denies CP/SOB/blurred vision. Occasional headaches Compliant with losartan 50mg once daily. + headaches. No changes to diet, exercise routine NO smoking No ETOH NO marijuana, NADYA Patient Active Problem List Diagnosis Tendinitis of left rotator cuff Seronegative rheumatoid arthritis (CMS/HCC) Gastroesophageal reflux disease without esophagitis Acquired trigger finger of right middle finger Essential hypertension Chronic bilateral low back pain with bilateral sciatica Health care maintenance Carpal tunnel syndrome on both sides Fibromyalgia Morbid obesity (CMS/HCC) Penicillin allergy History of anemia Review of Systems Constitutional: Negative for fatigue, fever and unexpected weight change. Eyes: Negative for visual disturbance. Respiratory: Negative for apnea, chest tightness and shortness of breath. Cardiovascular: Negative for chest pain, palpitations and leg swelling. Neurological: Negative for dizziness, light-headedness and headaches. OBJECTIVE: Vitals: 07/08/24 1159 BP: (!) 138/90 Pulse: 75 Resp: 20 Temp: 97.7 ??F (36.5 ??C) SpO2: 98% Physical Exam Constitutional: General: She is not in acute distress. Appearance: Normal appearance. HENT: Head: Normocephalic and atraumatic. Right Ear: External ear normal. Left Ear: External ear normal. Nose: Nose normal. Eyes: Conjunctiva/sclera: Conjunctivae normal. Cardiovascular: Rate and Rhythm: Normal rate and regular rhythm. Heart sounds: Normal heart sounds. Pulmonary: Effort: Pulmonary effort is normal. Breath sounds: Normal breath sounds. Skin: General: Skin is warm and dry. Neurological: General: No focal deficit present. Mental Status: She is alert and oriented to person, place, and time. Psychiatric: Mood and Affect: Mood normal. Behavior: Behavior normal. ASSESSMENT/PLAN 1. Essential hypertension (Primary) -Increase losartan to 100 mg daily -Baseline EKG ordered outpatient - RN BP check 2 weeks, with repeat BMP Reviewed ED precautions to include chest pain, shortness of breath, severe headache, sudden vision changes or BP >=180/>=120 mmHg. Contact [facility] if three or more BP readings >140/90. - losartan (Cozaar) 100 MG tablet; Take 1 tablet (100 mg) by mouth Once per day. Dispense: 30 tablet; Refill: 11 - ECG 12 lead; Future - ECG 12 lead Follow Up: 2 weeks RN BP check Current Outpatient Medications on File Prior to Visit Medication Sig Dispense Refill cyclobenzaprine (Flexeril) 10 MG tablet TAKE 1 TABLET BY MOUTH TWICE A DAY NEEDED 60 tablet 0 D3-1000 25 MCG (1000 UT) capsule TAKE 1 CAPSULE (25 MCG) BY MOUTH ONCE PER DAY. 90 capsule 0 DULoxetine (Cymbalta) [address] capsule TAKE 1 CAPSULE (60 MG) BY MOUTH ONCE PER DAY. DO NOT CRUSH OR CHEW. 90 capsule 0 ferrous sulfate 325 (65 Fe) MG tablet TAKE 1 TABLET BY MOUTH EVERY OTHER DAY 45 tablet 0 hydroxychloroquine (Plaquenil) 200 MG tablet Take 1 tablet by mouth 2 times daily. hydrOXYzine HCl (Atarax) 25 MG tablet TAKE 1 TABLET (25 MG) BY MOUTH IF NEEDED IN THE MORNING, AT NOON, AND AT BEDTIME FOR ANXIETY. 90 tablet 3 leflunomide (Arava) 20 MG tablet Take 20 mg by mouth in the morning. losartan (Cozaar) 50 MG tablet TAKE 1 TABLET BY MOUTH EVERY DAY IN THE MORNING 90 tablet 0 meloxicam (Mobic) 15 MG tablet TAKE 1 TABLET BY MOUTH EVERY DAY WITH FOOD Semaglutide-Weight Management (Wegovy) 0.25 MG/0.5ML solution auto-injector Inject 0.25 mg subcutaneously once a week for weeks 1-4 Then increase to 0.5 mg weekly 2 mL 0 Semaglutide-Weight Management (Wegovy) 0.5 MG/0.5ML solution auto-injector Inject 0.5 mg subcutaneously weekly on weeks 5-8 2 mL 3 sulfaSALAzine (Azulfidine) 500 MG tablet Take 500 mg by mouth 2 times daily. No current facility-administered medications on file prior to visit. documented in this encounter Plan of Treatment Upcoming Encounters Date Type Department Care Team (Late st Contact Info) Description 07/22/2024 11:30 AM EDT Clinical Support [facility]IC[facility] [address] [place] [address] 08/06/2024 1:00 PM EDT Office Visit [facility] [address] [place] [address] Lori Hernandez MD [address] [place] [address] 10/15/2024 1:00 PM EDT Office Visit [facility] OPTOMETRY [address] [place] [phone] PrakashFernanda sepulveda, OD [address] [place] [address] Scheduled Orders Name Type Priority Associated Diagnoses Orde r Schedule ECG 12 lead ECG Routine Essential hypertension Expected: 07/08/2024 (Approximate), Expires: 07/08/2025 Basic Metabolic Panel Lab Routine Essential hypertension Expected: 07/08/2024 (Approximate), Expires: 07/08/2025 documented as of this encounter Visit Diagnoses Diagnosis Essential hypertension- Primary Unspecified essential hypertension documented in this encounter Additional Health Concerns Assessment Noted Time PHQ-9 Depression Total Score: 0 06/07/19 24 2:28 PM EST documented as of this encounter Care Teams Shirring Machine Operator Automatic Relationship Specialty Start Date End Date Lori Hernandez MD [address] [place] [address] PCP - General Internal Medicine 10/15/22 documented as of this encounter
--- OUTSIDE RECORDS SUMMARY | 2024-07-16 15:12 | XMS_ITS | Encounter Summary ---
Author Organization [employer] Address [address] [facility] 7t [place] [address] Care Team Providers Care Celluloid Trimmer Name Role Phone Lori Hernandez MD Primary Care Pro vider Encounter Details Date Type Department Care Team (Latest Contact Info) Description 07/08/2024 Travel Social History Tobacco Use Types Packs/Day [...] Description 07/22/2024 11:30 AM EDT Clinical Support [facility] MED[facility] [address] [place] [address] 08/06/2024 1:00 PM EDT Office Visit [facility] [address] [place] [address] Lori Hernandez MD [address] [place] [address] 10/15/2024 1:00 PM EDT Office Visit [facility] OPTOMETRY [address] [place] [address] Prakash, Fernanda, OD [address] [place] [address] documented as of this encounter Visit Diagnoses Not on filedocumented in this encounter Additional Health Concerns Assessment Noted Time PHQ-9 Depression Total Score: 0 06/07/19 24 2:28 PM EST documented as of this encounter Care Teams Celluloid Trimmer Relationship Specialty Start Date End Date Lori Hernandez MD [address] [place] [address] PCP - General Internal Medicine 10/15/22 documented as of this encounter
--- OUTSIDE RECORDS SUMMARY | 2024-07-16 15:12 | XMS_ITS | Clinical Summary ---
Author Organization [employer] Address [address] [place] [address] 7t [place] [address] Care Team Providers Care Chemical Operations Specialist Name Role Phone Lori Hernandez MD Primary Care Pro vider Allergies Active Allergy Reactions Criticality Noted Date Comments Aspirin Hives 05/27/2022 Codeine 05/27/2022 Penicillins Hives 05/27/2022 Medications hydroxychloroqu ine (Plaquenil) 200 MG tablet Take 1 tablet by mouth 2 times daily. 022 Active leflunomide (Arava) 20 MG tablet Take 20 mg by mouth in the morning. Active sulfaSALAzine (Azulfidine) 500 MG tablet Take 500 mg by mouth 2 times daily. 024 Active meloxicam (Mobic) 15 MG tablet TAKE 1 TABLET BY MOUTH EVERY DAY WITH FOOD 023 Active Semaglutide-Neil ght Management (Wegovy) 0.25 MG/0.5ML solution auto-injector Inject 0.25 mg subcutaneously once a week for weeks 1-4 Then increase to 0.5 mg weekly 2 mL Active Semaglutide-Neil ght Management (Wegovy) 0.5 MG/0.5ML solution auto-injector Inject 0.5 mg subcutaneously weekly on weeks 5-8 2 mL 3 Active ferrous sulfate 325 (65 Fe) MG tablet TAKE 1 TABLET BY MOUTH EVERY OTHER DAY 45 tablet Active D3-1000 25 MCG (1000 UT) capsule TAKE 1 CAPSULE (25 MCG) BY MOUTH ONCE PER DAY. 90 capsule 12/13/2 024 Active cyclobenzaprine (Flexeril) 10 MG tabletIndicatio ns:Other chronic pain TAKE 1 TABLET BY MOUTH TWICE A DAY NEEDED 60 tablet 024 Active hydrOXYzine HCl (Atarax) 25 MG tabletIndicatio ns:Anxiety TAKE 1 TABLET (25 MG) BY MOUTH IF NEEDED IN THE MORNING, AT NOON, AND AT BEDTIME FOR ANXIETY. 90 tablet 3 025 Active DULoxetine (Cymbalta) [address] capsule TAKE 1 CAPSULE (60 MG) BY MOUTH ONCE PER DAY. DO NOT CRUSH OR CHEW. 90 capsule 025 Active losartan (Cozaar) 100 MG tabletIndicatio ns:Essential hypertension Take 1 tablet (100 mg) by mouth Once per day. 30 tablet 11 025 2025 Active hydrOXYzine HCl (Atarax) 25 MG tabletIndicatio ns:Anxiety Take 1 tablet (25 mg) by mouth if needed in the morning, at noon, and at bedtime for anxiety. 90 tablet 3 024 2024 Discontinued DULoxetine (Cymbalta) [address] capsule Take 1 capsule (60 mg) by mouth Once per day. Do not crush or chew. 90 capsule 1 024 2024 Discontinued losartan (Cozaar) 50 MG tabletIndicatio ns:Essential hypertension TAKE 1 TABLET BY MOUTH EVERY DAY IN THE MORNING 90 tablet 025 2024 Discontinued Active Problems Problem Noted Date Diagnosed Date History of anemia 01/03/2024 Chronic bilateral low back pain with bilateral s ciatica 10/15/2022 Health care maintenance 10/15/2022 Gastroesophageal reflux disease without esophagi tis 05/27/2022 Essential hypertension 05/27/2022 Tendinitis of left rotator cuff 10/19/2021 Acquired trigger finger of right middle finger 0 10/19/2021 Seronegative rheumatoid arthritis 03/01/2021 Overview (02/08/2023): 02/23/22: [facility]thritis treatment center appt. Continue Leflunomide 20 mg daily Carpal tunnel syndrome on both sides Fibromyalgia Morbid obesity Penicillin allergy Resolved Problems Problem Noted Date Diagnosed Date Resolved Date Blood coagulation disorder 11/06/2017 0 06/07/2023 Mixed anxiety and depressive disorder 02/16/2015 06/08/2023 Encounters Date Type Department Care Team Description 07/15/2024 Refill [facility] [address] [place] [address] Whitney ValencianiferDO 07/08/2024 11:30 AM EST Office Visit [facility] [address] [place] [address] [place], [place], [facility] Essential hypertension (Primary Dx) 07/08/2024 Travel 07/06/2024 Travel 07/05/2024 Telephone [facility] [address] [place] [address] Tram Esparza, RN Nurse Triage 06/28/2024 Refill [facility] [address] [place] [address] Lori Hernandez MD 06/16/2024 Refill [facility] [address] [place] [address] Lori Hernandez MD Anxiety 05/28/2024 2:30 PM EST Office Visit [facility] [address] [place] [address] Prakash, Fernanda, OD Presbyopia of both eyes (Primary Dx) 05/09/2024 Refill [facility] [address] [place] [address] Bakari Strickland MD Essential hypertension 04/25/2024 Refill [facility] [address] [place] [address] Lori Hernandez MD Other chronic pain 04/19/2024 Refill [facility] [address] [place] [address] Lori Hernandez MD from Last 3 Months Immunizations Name Administration Dates Next Due Hep A, Adult 10/12/2016,08/27/2015 Hep B, adult 10/12/2016, 0,02/07/2007,2006 Influenza injectable quadriv alent IIV4 with preservative 02/01/2017,03/22/2016,02/16/2015 Influenza injectable quadriv alent preservative free 02/22/2022,03/05/2021,03/19/2020,2018 Influenza, IIV3, injectable 04/09/2014, 0 Influenza, Split (incl. sofi fied surface antigen) 01/24/2013 MMR 01/04/2022,12/05/2006 Moderna Covid-19 Vaccine 6+ Bivalent 05/11/2022 TD (adult), 2 Lf tetanus tox oid, preservative free, adsorbed 01/04/2022 Tdap 11/16/2009 Family History Medical History Relation Name Comments Coronary artery disease Maternal Grandfather DM2 Maternal Grandfather Asthma Mother Hypertension Mother Mental illness Mother Relation Name Status Comments Maternal Grandfather Mother Social History Tobacco Use Types Packs/Day Years [...] your housing situation today? I have erinn uhdson 02/28/[address] you li [...] Orientation Straight 03/07/2022 10 :18 AM EDT Last Filed Vital Signs Vital Sign Reading [...] Mass Index 43.31 07/08/2024 11:59 AM EST Plan of Treatment Upcoming Encounters Date Type Department Care Team (Late st Contact Info) Description 07/22/2024 11:30 AM EDT Clinical Support [facility] [address] [place] [phone] 08/06/2024 1:00 PM EDT Office Visit [facility] [address] [place] [address] Lori Hernandez MD [address] [place] [address] 10/15/2024 1:00 PM EDT Office Visit [facility] [address] [place] [address] Fernanda Randall, RADHA [address] [place] [address] Health Maintenance Due Date Last Done Comments CT Colonography 1975 Colonoscopy 1975 Colorectal Cancer Screening 1975 FIT DNA/Cologuard 1976 FIT 1975 FOBT 1975 Sigmoidoscopy 1976 Alcohol/Substance Use Screening 1988 Family Planning (PISQ) 11/02/1991 COVID-19 Vaccine ( season) 2024 05/11/2022, 05/21/2021, 09/07/2020, Additional history exists Influenza Vaccine (#1) 2024 , 03/05/2021, 03/19/2020, Additional history exists SDOH Screening 05/29/2024 05/29/2023 Depression Screening 06/07/2024 06/07/2023, 06/07/19 24 Tobacco Screening 07/08/2025 07/08/2024 Mammogram 09/03/2025 09/04/2023, 08/07, 06/13/2023, Additional history exists Cervical Cancer Screening 05/20/2026 HPV/Cotest 05/20/2026 05/20/2021, 05/08, 05/20/2021, Additional history exists Pap Smear 05/20/2026 05/20/2021, 03/26/2021 Zoster Vaccines (1 of 2) 2026 Lipid Panel 10/17/2028 10/18/2023, 10/14/2022 DTaP/Tdap/Td Vaccines (3 - Td or Tdap) 01/05/2032 01/04/2022, 11/16/2009 RSV Patients and Patients Aged 60 years or older (1 - 1-dose 75+ series) 11/02/2051 Hepatitis A Vaccines Aged Out 10/12/2016, 08/27/19 16 No longer eligible based on patient's age to complete this topic Hepatitis B Vaccines Completed 10/12/2016, 11/16/2009, 02/07/2007, Additional history exists HIV Screening Completed 10/18/2023 Hepatitis C Screening Completed 10/18/2023 HIB Vaccines Aged Out No longer eligi ble based on patient's age to complete this topic HPV Vaccines Aged Out No longer eligi ble based on patient's age to complete this topic IPV Vaccines Aged Out No longer eligi ble based on patient's age to complete this topic Meningococcal Vaccine Aged Out No rui clint eligible based on patient's age to complete this topic Pneumococcal Vaccine: Pediatrics (0 to 5 Years) and At-Risk Patients (6 to 49) Years) Aged Out No longer eligible based on patient's age to complete this topic RSV under 20 months Aged Out No longe r eligible based on patient's age to complete this topic Rotavirus Vaccines Aged Out No longer eligible based on patient's age to complete this topic Procedures Procedure Name Priority Date/Time Associated Diagnosis Comments HEPATITIS C AB W/REFL TO HCV RNA, QN, PCR Routine 10/18/2023 10:43 AM EDT Annual physical exam HIV 1/2 ANTIGEN/ANTIBODY, FOURTH GENERATION W/RFL Routine 10/18/2023 10:43 AM EDT Annual physical exam LIPID PANEL, STANDARD Routine 10/18/2023 10:43 AM EDT Annual physical exam BI US BREAST LIMITED LEFT Routine 09/04/2023 12:47 PM EDT HM PAP/HPV Routine 05/20/2021 from Last 3 Months or Most Recently Relevant to Health Maintenance Results * Hepatitis C Antibody with Reflex to HCV, RNA, Quantitative, Real-Time PCR (10/18/2023 10:43 AM EDT) Hepatitis C Antibody Nonreactive Nonreactive [facility] Comment:Antibodies to HCV no t detected; does not exclude early acuteHCV infection. Blood Venous blood specimen / Unknown 10/18/2023 10:43 AM EDT 10/18/2023 11:21 AM EDT us Lori Mccann MD LAB BLOOD ORDERAB LES Final Result [facility] [address] [place] [phone] * HIV-1/2 Antigen and Antibodies, Fourth Generation, with Reflexes (10/18/2023 10:43 AM EDT) HIV AB/AG Nonreactive Nonreactive [facility] Comment:HIV-1 p24 Ag and/or HIV-1/HIV-2 Ab not detected.A test result that is nonreactive does not exclude thepossibility of exposure to or infection with HIV-1 and/orHIV-2. Nonreactive results in this assay for individualswith prior exposure to HIV-1 and/or HIV-2 may be due toantigen and antibody levels that are below the limit ofdetection of this assay.The [employer] HIV Ag/Ab Combo assay result andsupplemental assay results should be interpreted inconjunction with the patient's clinical presentation,history and other laboratory results. If the results areinconsistent with clinical evidence, additional testing issuggested to confirm the result. Blood Venous blood specimen / Unknown 10/18/2023 10:43 AM EDT 10/18/2023 11:21 AM EDT us Lori Mccann MD LAB BLOOD ORDERAB LES Final Result [facility] [address] [place] [phone] [phone] * Lipid Panel, Standard (10/18/2023 10:43 AM EDT) Triglycerides 69 <150 mg/dL [facility] Comment:Desirable Triglyceri de: less than 150 mg/dLBorderline High Triglyceride 150-199 mg/dLHigh Triglyceride: 200-499 mg/dLVery High Triglyceride: greater than or equal to 5OO mg/dL Cholesterol 140 <200 mg/dL [facility] Comment:Desirable Cholestero l: less than 200 mg/dLBorderline High Cholesterol: 200-239 mg/dLHigh Cholesterol: greater than 239 mg/dL LDL Cholesterol Calculated 81 <100 mg/dL [facility] Comment:Desirable LDL: less than 100 mg/dLNear Optimal/Above Optimal LDL: 110- 129 mg/dLBorderline High LDL: 130-159 mg/dLHigh LDL: 160-189 mg/dLVery High LDL: greater than or equal to 190 mg/dL HDL Cholesterol 46 >40 mg/dL [facility] Comment:Desirable HDL: great er than 40 mg/dL Note: This HDL assay may give artificially low results in patients with liver disease. Blood Venous blood specimen / Unknown 10/18/2023 10:43 AM EDT 10/18/2023 11:21 AM EDT Lori Mccann MD LAB BLOOD ORDERAB LES Final Result [facility] [address] [place] [address] [phone] * BI US Breast Limited Left (09/04/2023 12:47 PM EDT) Anatomical Region Laterality Modality Breast Left Ultrasound 09/04/2023 12:4 7 PM EDT Narrative 09/08/2023 2:39 PM EDT ? [facility] [place] ? [address] ?[place] [address] ? Ultrasound Report ? Signed ? Patient: Lesley Gordon ?MR#: [id number] ?? [id number] ? : 1975 ?Acct:[id number] ? Age/Sex: 47 / F ?ADM Date: 09/04/23 ? Loc: HO.MAMMO ? Attending Dr: Lori Mccann MD ? Ordering Physician: Travis Reyes MD ?? Date of Service: 09/04/23 ?? Procedure(s): US breast LT limited mamm only ?? Accession Number(s): [id number] ? cc: Travis Reyes MD; Lori Hernandez MD ? EXAMINATION: ?? MM DIAGNOSTIC DIGITAL BREAST TOMOSYNTHESIS, LEFT ?? US BREAST LIMITED, LEFT ? MAMMOGRAPHY: ?? CLINICAL INFORMATION: ? The patient presents for palpable lump beneath the left nipple which is ?? tender. The patient also indicates that she has clear left nipple ?? discharge elicited only by squeezing. The discharge is not spontaneous. ? COMPARISON: ?? Mammography: This study is compared to prior mammograms dating back to ?? 2019. ? TECHNIQUE: ?? Digital breast tomosynthesis is performed in both the craniocaudal and ?? mediolateral oblique views along with computer-aided detection (CAD). ?? Synthesized 2D images are generated from the tomosynthesis. ? FINDINGS: ?? There are scattered areas of fibroglandular density (ACR BI-RADS breast ?? composition Category b). ? There are no significant masses, abnormal calcifications, or other ?? abnormalities. ? ULTRASOUND: ?? CLINICAL INFORMATION: ?? The patient presents for palpable lump beneath the left nipple which is ?? tender. The patient also indicates that she has clear left nipple ?? discharge elicited only by squeezing. The discharge is not spontaneous. ? COMPARISON: ?? None ? TECHNIQUE: ?? Targeted sonographic evaluation was performed using a high frequency ?? linear transducer. ??Selected archived documentation. ? FINDINGS: ? LEFT BREAST: Sonography of the left subareolar region is normal. ? US/US breast LT limited mamm only ?? IMPRESSION: ?? There are no significant changes from prior study. ? OVERALL ASSESSMENT: ?? Mammography: BI-RADS 1 - Negative ?? Ultrasound: BI-RADS 1 - Negative ? RECOMMENDATION: ?? 1. Patient should be managed based on the clinical impression. ?2. ?? Otherwise, routine annual screening mammography. ? Results were provided to the patient at time of visit by the ?? technologist. ? This patient's information was entered into a reminder system with a ?? target due date for their next mammogram. ? Dictated By: ?Adelina Haywood MD ? Signed By: ?<Electronically signed by Adelina Haywood MD in OV> ? 09/08/23 1411 ? DD/ 1247 ? TD/TT: ? Quarter Folder: ? Procedure Note Darnell, Image - 09/08/2023 [facility] [address] [place] [address] Dr. Kirkpatrick, [place] [address] Ultrasound Report Signed Patient: Monica GordonJoyRadha#: [id number] : 1975Acct:[id number] Age/Sex: 47 / FADM Date: 09/04/23 Loc: SO Attending Dr: Lori Mccann MD Ordering Physician: Name,Travis DYER Date of Service: 09/04/23 Procedure(s): US breast LT limited mamm only Accession Number(s): [id number] cc: Name,Travis DYER; Lori Hernandez MD EXAMINATION: MM DIAGNOSTIC DIGITAL BREAST TOMOSYNTHESIS, LEFT US BREAST LIMITED, LEFT MAMMOGRAPHY: CLINICAL INFORMATION: The patient presents for palpable lump beneath the left nipple which is tender. The patient also indicates that she has clear left nipple discharge elicited only by squeezing. The discharge is not spontaneous. COMPARISON: Mammography: This study is compared to prior mammograms dating back to 2019. TECHNIQUE: Digital breast tomosynthesis is performed in both the craniocaudal and mediolateral oblique views along with computer-aided detection (CAD). Synthesized 2D images are generated from the tomosynthesis. FINDINGS: There are scattered areas of fibroglandular density (ACR BI-RADS breast composition Category b). There are no significant masses, abnormal calcifications, or other abnormalities. ULTRASOUND: CLINICAL INFORMATION: The patient presents for palpable lump beneath the left nipple which is tender. The patient also indicates that she has clear left nipple discharge elicited only by squeezing. The discharge is not spontaneous. COMPARISON: None TECHNIQUE: Targeted sonographic evaluation was performed using a high frequency linear transducer. Selected archived documentation. FINDINGS: LEFT BREAST: Sonography of the left subareolar region is normal. US/US breast LT limited mamm only IMPRESSION: There are no significant changes from prior study. OVERALL ASSESSMENT: Mammography: BI-RADS 1 - Negative Ultrasound: BI-RADS 1 - Negative RECOMMENDATION: 1. Patient should be managed based on the clinical impression. 2. Otherwise, routine annual screening mammography. Results were provided to the patient at time of visit by the technologist. This patient's information was entered into a reminder system with a target due date for their next mammogram. Dictated By: Adelina Haywood MD Signed By: <Electronically signed by Adelina Haywood MD in OV> 09/08/23 1411 DD/ 1247 TD/TT: Quarter Folder: Travis Reyes MD IM US PROCEDURES Final Result * Hm Pap Smear (05/20/2021) Pap Negative for intraephithelial lesion or malignancy Negative for intraephithelial lesion or malignancy, Other HPV Undetected us Historical Provider HEALTH MAINTENANCE Final Result from Last 3 Months or Most Recently Relevant to Health Maintenance Insurance [facility] C3 Care Teams Chemical Operations Specialist Relationship Specialty Start Date End Date Lori Hernandez MD [address] [place] [phone] PCP - General Internal Medicine 10/15/22
== END 2024-07-16 13:20 | disposition home or self-care (01) ==
LOC: HO.RHES 12:41
PROVIDERS: PCP Student in an Organized Health Care Education/Training Program; Visit Provider Internal Medicine Rheumatology
DX: M25.559 Pain in unspecified hip (principal); M25.569 Pain in unspecified knee; M06.00 Rheumatoid arthritis without rheumatoid factor, unspecified site; M25.551 Pain in right hip; M25.552 Pain in left hip; M25.561 Pain in right knee; M25.562 Pain in left knee; G89.29 Other chronic pain; Z79.899 Other long term (current) drug therapy
CPT/HCPCS: 99214

== ENCOUNTER 2024-07-16 12:40 | Outpatient (REF) | payer MEDICAID, SELFPAY ==
--- OUTSIDE RECORDS SUMMARY | 2024-07-16 16:02 | XMS_ITS | Encounter Summary ---
Author Organization [employer] Address [address] [place] [address] 7 [place] [address] Care Team Providers Care Traveling Missionary Name Role Phone Lori Hernandez MD Primary Care Pro vider Reason for Visit * Reason Comments Med Refill Encounter Details Date Type Department Care Team ([facility] st Contact Info) Description 06/16/2024 Refill [facility] [address] [place], [place] [phone] Lori Hernandez MD [address] [place] [address] Anxiety Social History Tobacco Use Types Packs/Day [...] Description 07/22/2024 11:30 AM EDT Clinical Support [facility] [address] [place] [phone] 08/06/2024 1:00 PM EDT Office Visit [facility] [address] [place] [address] Lori Hernandez MD [address] [place] [address] 10/15/2024 1:00 PM EDT Office Visit [facility] [address] [place] [address] Prakash, Fernanda, OD [address] [place] [address] documented as of this encounter Visit Diagnoses Diagnosis Anxiety Anxiety state, unspecified documented in this encounter Additional Health Concerns Assessment Noted Time PHQ-9 Depression Total Score: 0 06/07/19 24 2:28 PM EST documented as of this encounter Care Teams Traveling Missionary Relationship Specialty Start Date End Date Lori Hernandez MD [address] [place] [address] PCP - General Internal Medicine 10/15/22 documented as of this encounter
--- OUTSIDE RECORDS SUMMARY | 2024-07-16 16:02 | XMS_ITS | Encounter Summary ---
Author Organization [email or web address] Address [address] [place] [address] 7 [place] [address] Care Team Providers Care Tanbark Peeler Name Role Phone Lori Hernandez MD Primary Care Pro vider Reason for Referral * Cardiology (Routine) - Closed Specialty Diagnoses / Procedures Referred By Contjocelyn t Referred To Contact Diagnoses Essential hypertension Procedures ECG 12 lead Carolann Echols FNP [address] [place] [address] Phone: tel: fax: [address] Phone: tel: fax: Referral ID Status Reason Start Date Expiration Date Visits Re quested Visits Authorized [id number] Closed 07/08/2024 07/08/2025 1 1 Reason for Visit * Reason Comments sick visit Encounter Details Date Type Department Care Team (Late st Contact Info) Description 07/08/2024 11:30 AM EST Office Visit [facility] [address] [place], [place] [phone] Carolann Echols FNP [address] [place], [place] [phone] Essential hypertension (Primary Dx) Social History Tobacco [...] documented in this encounter Progress Notes * [facility], PLUMBING CONTRACTOR - 07/08/2024 11:30 AM EST SUBJECTIVE: Lesley [...] Description 07/22/2024 11:30 AM EDT Clinical Support [facility] [address] [place] [address] 08/06/2024 1:00 PM EDT Office Visit [facility] [address] [place] [address] Lori Hernandez MD [address] [place] [address] 10/15/2024 1:00 PM EDT Office Visit [facility] [address] [place] [phone] PrakashFernanda sepulveda, OD [address] [place] [address] Scheduled Orders Name Type Priority Associated Diagnoses [...] documented as of this encounter Care Teams Tanbark Peeler Relationship Specialty Start Date End Date Lori Hernandez MD [address] [place] [address] PCP - General Internal Medicine 10/15/22 documented as of this encounter
--- OUTSIDE RECORDS SUMMARY | 2024-07-16 16:02 | XMS_ITS | Encounter Summary ---
Author Organization [employer] Address [address] [place] [address] Care Team Providers Care Buffing Wheel Former Machine Name Role Phone Lori Hernandez MD Primary Care Pro vider Reason for Visit * Reason Comments Med Refill Encounter Details Date Type Department Care Team ([facility] st Contact Info) Description 07/15/2024 Refill [facility] [address] [place], [place] [phone] Heather Valencia, [address] [place] [address] Social History Tobacco Use Types Packs/Day Years [...] is your housing situation today? I have erinnrebecca hudson 02/28/[address] you [...] Clinical Support [facility] MEDICINE [address] [place] [phone] 08/06/2024 1:00 PM EDT Office Visit [facility] MED[facility] [address] [place] [address] Lori Hernandez MD [address] [place] [address] 10/15/2024 1:00 PM EDT Office Visit [facility] OPTOMETRY [address] [place] [address] Prakash, Fernanda, OD [address] [place] [address] documented as of this encounter Visit Diagnoses Not on filedocumented in this encounter Additional Health Concerns Assessment Noted Time PHQ-9 Depression Total Score: 0 06/07/19 24 2:28 PM EST documented as of this encounter Care Teams Buffing Wheel Former Machine Relationship Specialty Start Date End Date Lori Hernandez MD [address] [place] [phone] PCP - General Internal Medicine 10/15/22 documented as of this encounter
--- OUTSIDE RECORDS SUMMARY | 2024-07-16 16:02 | XMS_ITS | Encounter Summary ---
Author Organization [employer] Address [address] [place] [address] 7 [place] [address] Care Team Providers Care Armed Guard Name Role Phone Lori Hernandez MD Primary Care Pro vider Reason for Visit * Reason Comments Med Refill Encounter Details Date Type Department Care Team ([facility] st Contact Info) Description 06/28/2024 Refill [facility] [address] [place], [place] [phone] Lori Hernandez MD [address] [place] [address] Social History Tobacco Use Types Packs/Day Years [...] Description 07/22/2024 11:30 AM EDT Clinical Support [facility] [address] [place] [phone] 08/06/2024 1:00 PM EDT Office Visit [facility] [address] [place] [address] Lori Hernandez MD [address] [place] [address] 10/15/2024 1:00 PM EDT Office Visit [facility] OPT[facility]ET[facility] [address] [place] [address] Prakash, Fernanda, OD [address] [place] [address] documented as of this encounter Visit Diagnoses Not on filedocumented in this encounter Additional Health Concerns Assessment Noted Time PHQ-9 Depression Total Score: 0 06/07/19 24 2:28 PM EST documented as of this encounter Care Teams Armed Guard Relationship Specialty Start Date End Date Lori Hernandez MD [address] [place] [address] PCP - General Internal Medicine 10/15/22 documented as of this encounter
--- OUTSIDE RECORDS SUMMARY | 2024-07-16 16:02 | XMS_ITS | Encounter Summary ---
Author Organization [employer] Address [address] [facility] 7t [place] [address] Care Team Providers Care Slot Attendant Name Role Phone Lori Hernandez MD Primary [...] Description 07/22/2024 11:30 AM EDT Clinical Support [facility] [address] [place] [address] 08/06/2024 1:00 PM EDT Office Visit [facility] [address] [place] [address] Lori Hernandez MD 230 [place] [address] 10/15/2024 1:00 PM EDT Office Visit [facility] [address] [place] [address] Prakash, Fernanda, OD 230 [place] [address] documented as of this encounter Visit Diagnoses Not on filedocumented in this encounter Additional Health Concerns Assessment Noted Time PHQ-9 Depression Total Score: 0 06/07/19 24 2:28 PM EST documented as of this encounter Care Teams Slot Attendant Relationship Specialty Start Date End Date Lori Hernandez MD 230 [place] [address] PCP - General Internal Medicine 10/15/22 documented as of this encounter
--- OUTSIDE RECORDS SUMMARY | 2024-07-16 16:02 | XMS_ITS | Encounter Summary ---
Author Organization [employer] Address [address] [facility] 7t [place] [address] Care Team Providers Care Superintendent Stations Name Role Phone Lori Hernandez MD Primary [...] Description 07/22/2024 11:30 AM EDT Clinical Support [facility] [address] [place] [address] 08/06/2024 1:00 PM EDT Office Visit [facility] [address] [place] [address] Lori Hernandez MD 230 [place] [address] 10/15/2024 1:00 PM EDT Office Visit [facility] [address] [place] [address] Prakash, Fernanda, OD 230 [place] [address] documented as of this encounter Visit Diagnoses Not on filedocumented in this encounter Additional Health Concerns Assessment Noted Time PHQ-9 Depression Total Score: 0 06/07/19 24 2:28 PM EST documented as of this encounter Care Teams Superintendent Stations Relationship Specialty Start Date End Date Lori Hernandez MD 230 [place] [address] PCP - General Internal Medicine 10/15/22 documented as of this encounter
--- OUTSIDE RECORDS SUMMARY | 2024-07-16 16:03 | XMS_ITS | Encounter Summary ---
Author Organization [employer] Address [address] [facility] 7t [place] [address] Care Team Providers Care Hyperion Essbase Developer Name Role Phone Lori Hernandez MD Primary Care Pro vider Reason for Visit * Reason Onset Date Comments Nurse Triage 07/05/2024 Encounter Details Date Type Department Care Team ([facility] st Contact Info) Description 07/05/2024 Telephone [facility] 230 [place], [place] [phone] Tram Esparza, RN 230 [place] [address] Nurse Triage Social History Tobacco Use Types [...] Pt booked follow up with PCP on [facility] for 08/06/24. Reason: My blood pressure is [...] Description 07/22/2024 11:30 AM EDT Clinical Support [facility] [address] [place] [address] 08/06/2024 1:00 PM EDT Office Visit [facility] [address] [place] [address] Lori Hernandez MD 230 [place] [address] 10/15/2024 1:00 PM EDT Office Visit [facility] OPTOMETRY [address] [place], [place] [phone] Fernanda Randall, OD 230 [place] [address] documented as of this encounter Visit Diagnoses Not on filedocumented in this encounter Additional Health Concerns Assessment Noted Time PHQ-9 Depression Total Score: 0 06/07/19 24 2:28 PM EST documented as of this encounter Care Teams Hyperion Essbase Developer Relationship Specialty Start Date End Date Lori Hernandez MD [address] [place] [address] [phone] PCP - General Internal Medicine 10/15/22 documented as of this encounter
--- OUTSIDE RECORDS SUMMARY | 2024-07-16 16:03 | XMS_ITS | Encounter Summary ---
Author Organization [employer] Address [address] [place] [address] 7 [place] [address] Care Team Providers Care Tire Repair Mechanic Name Role Phone Nohemi Queen ELECTRONIC WARFARE LINGUIST Primary Care Provider [phone]- [phone] Lori Hernandez MD Primary Care Pro vider Encounter Details Date Type Department Care Team (Late Contact Info) Description 05/12/2022 Orders Only [facility] [address] [place], [place] [phone] Heather Hammond LPN Social History Tobacco Use [...] Description 07/22/2024 11:30 AM EDT Clinical Support [address] [address] 08/06/2024 1:00 PM EDT Office Visit [address] [address] Lori Hernandez MD [address] [place] [address] 10/15/2024 1:00 PM EDT Office Visit [facility] OPTOMETRY [address] [place], [place] [phone] Fernanda Randall, OD 230 [place], [place] [phone] documented as of this encounter Visit Diagnoses Not on filedocumented in this encounter Care Teams Tire Repair Mechanic Relationship Specialty Start Date End Date Nohemi Queen FNP PCP - General Family Medicine 03/03/21 10/14/22 Lori Hernandez MD 230 [place] [address] PCP - General Internal Medicine 10/15/22 documented as of this encounter
--- OUTSIDE RECORDS SUMMARY | 2024-07-16 16:03 | XMS_ITS | Clinical Summary ---
Author Organization [employer] Address [address] [place] [address] 7t [place] [address] Care Team Providers Care Pet Care Technician Name Role Phone Lori Hernandez MD Primary Care Pro vider Allergies Active Allergy Reactions Criticality Noted Date Comments Aspirin Hives 05/27/2022 Codeine 05/27/2022 Penicillins Hives 05/27/2022 Medications hydroxychloroqu ine (Plaquenil) 200 MG tablet Take 1 tablet by mouth 2 times daily. 022 Active leflunomide (Arava) 20 MG tablet Take 20 mg by mouth in the morning. 022 Active sulfaSALAzine (Azulfidine) 500 MG tablet Take [...] weekly on weeks 5-8 2 mL 3 024 Active ferrous sulfate 325 (65 Fe) MG tablet TAKE 1 TABLET BY MOUTH EVERY OTHER DAY 45 tablet Active cyclobenzaprine (Flexeril) 10 MG tabletIndicatio ns:Other [...] day. 30 tablet 11 025 2025 Active D3-1000 25 MCG (1000 UT) capsule TAKE 1 CAPSULE (25 MCG) BY MOUTH ONCE PER DAY. 90 capsule 025 Active hydrOXYzine HCl (Atarax) 25 MG tabletIndicatio ns:Anxiety Take 1 tablet (25 mg) by mouth if needed in the morning, at noon, and at bedtime for anxiety. 90 tablet 3 024 2024 Discontinued DULoxetine (Cymbalta) [address] capsule Take 1 capsule (60 mg) by mouth Once per day. Do not crush or chew. 90 capsule 1 024 2024 Discontinued D3-1000 25 MCG (1000 UT) capsule TAKE 1 CAPSULE (25 MCG) BY MOUTH ONCE PER DAY. 90 capsule 024 2024 Discontinued losartan (Cozaar) 50 MG [...] Type Department Care Team Description 07/15/2024 Refill [facility] [address] [place] [address] Heather Valencia DO 07/08/2024 11:30 AM EST Office Visit [facility] 230 [place] [address] [place], Carolann, TAPE DUPLICATOR Essential hypertension (Primary Dx) 07/08/2024 Travel 07/06/2024 Travel 07/05/2024 Telephone [facility] [address] [place] [address] Tram Esparza, RN Nurse Triage 06/28/2024 Refill [facility] [address] [place] [address] Lori Hernandez MD 06/16/2024 Refill [facility] [address] [place] [address] Lori Hernandez MD Anxiety 05/28/2024 2:30 PM EST Office Visit [facility] OPT[facility]ET[facility] [address] [place] [address] Prakash, Fernanda, OD Presbyopia of both eyes (Primary Dx) 05/09/2024 Refill [facility] [address] [place] [address] Bakari Strickland MD Essential hypertension 04/25/2024 Refill [facility] [address] [place] [address] Lori Hernandez MD Other chronic pain 04/19/2024 Refill [facility] [address] [place] [address] Lori Hernandez MD from Last 3 Months [...] Description 07/22/2024 11:30 AM EDT Clinical Support [facility] [address] [place] [address] 08/06/2024 1:00 PM EDT Office Visit [facility] [address] [place] [address] Lori Hernandez MD 230 [place] [address] 10/15/2024 1:00 PM EDT Office Visit [facility] OPT[facility] [address] [place] [address] Fernanda Randall, OD 230 [place] [address] Health Maintenance Due Date Last Done Comments [...] AM EDT) Hepatitis C Antibody Nonreactive Nonreactive [facility] Comment:Antibodies to HCV no t detected; does not exclude early acuteHCV infection. Blood Venous blood specimen / Unknown 10/18/2023 10:43 AM EDT 10/18/2023 11:21 AM EDT us Lori Mccann MD LAB BLOOD ORDERAB LES Final Result [facility] [address] [place] [address] [phone] * HIV-1/2 Antigen and Antibodies, Fourth Generation, with Reflexes (10/18/2023 10:43 AM EDT) HIV AB/AG Nonreactive Nonreactive [facility] Comment:HIV-1 p24 Ag and/or HIV-1/HIV-2 Ab not detected.A test result that is nonreactive does not exclude thepossibility of exposure to or infection with HIV-1 and/orHIV-2. Nonreactive results in this assay for individualswith prior exposure to HIV-1 and/or HIV-2 may be due toantigen and antibody levels that are below the limit ofdetection of this assay.The Agolo HIV Ag/Ab Combo assay result andsupplemental assay results should be interpreted inconjunction with the patient's clinical presentation,history and other laboratory results. If the results areinconsistent with clinical evidence, additional testing issuggested to confirm the result. Blood Venous blood specimen / Unknown 10/18/2023 10:43 AM EDT 10/18/2023 11:21 AM EDT us Lori Mccann MD LAB BLOOD ORDERAB LES Final Result [facility] [address] [place] [phone] * Lipid Panel, Standard (10/18/2023 10:43 AM EDT) Triglycerides 69 <150 mg/dL [facility] Comment:Desirable Triglyceri de: less than 150 mg/dLBorderline High Triglyceride 150-199 mg/dLHigh Triglyceride: 200-499 mg/dLVery High Triglyceride: greater than or equal to 5OO mg/dL Cholesterol 140 <200 mg/dL [facility] Comment:Desirable Cholestero l: less than 200 mg/dLBorderline High Cholesterol: 200-239 mg/dLHigh Cholesterol: greater than 239 mg/dL LDL Cholesterol Calculated 81 <100 mg/dL [facility] Comment:Desirable LDL: less than 100 mg/dLNear Optimal/Above Optimal LDL: 110- 129 mg/dLBorderline High LDL: 130-159 mg/dLHigh LDL: 160-189 mg/dLVery High LDL: greater than or equal to 190 mg/dL HDL Cholesterol 46 >40 mg/dL [facility] Comment:Desirable HDL: great er than 40 mg/dL Note: This HDL assay may give artificially low results in patients with liver disease. Blood Venous blood specimen / Unknown 10/18/2023 10:43 AM EDT 10/18/2023 11:21 AM EDT us Lori Mccann MD LAB BLOOD ORDERAB LES Final Result [facility] [address] [place] [address] [phone] * BI US Breast Limited Left (09/04/2023 12:47 PM EDT) Anatomical Region Laterality Modality Breast Left Ultrasound 09/04/2023 12:4 7 PM EDT Narrative 09/08/2023 2:39 PM EDT ? [facility] [place] ? [address] ?[place] [address] ? Ultrasound Report ? Signed ? Patient: Lesley Gordon ?MR#: [id number] ?? [id number] ? : 1975 ?Acct:[id number] ? Age/Sex: 47 / F ?ADM Date: 09/04/23 ? Loc: HO.MAMMO ? Attending Dr: Lori Mccann MD ? Ordering Physician: Travis Reyes MD ?? Date of Service: 09/04/23 ?? Procedure(s): US breast LT limited mamm only ?? Accession Number(s): [id number] ? cc: Travis Reyes MD; Lori Hernandez [...] 1411 ? DD/ 1247 ? TD/TT: ? Newspaper Clipper: ? Procedure Note Ellen Patrick - 09/08/2023 [facility] [address] [place], [place] [address] Ultrasound Report Signed Patient: Monica GordonRaphael#: [id number] : 1975Acct:[id number] Age/Sex: 47 / FADM Date: 09/04/23 Loc: SO Attending Dr: Lori Mccann MD Ordering Physician: Name,Travis DYER Date of Service: 09/04/23 Procedure(s): US breast LT limited mamm only Accession Number(s): [id number] cc: Name,Travis DYER; Lori Hernandez MD EXAMINATION: [...] in OV> 09/08/23 1411 DD/ 1247 TD/TT: Newspaper Clipper: us Travis Name IMIgnacia US PROCEDURES Final Result * Hm Pap Smear (05/20/2021) Pap Negative for intraephithelial lesion or malignancy Negative for intraephithelial lesion or malignancy, Other HPV Undetected Historical Provider HEALTH MAINTENANCE Final Result from Last 3 Months or Most Recently Relevant to Health Maintenance Insurance [employer] Care Teams Pet Care Technician Relationship Specialty Start Date End Date Lori Hernandez MD [address] [place] [phone] PCP - General Internal Medicine 10/15/22
--- OUTSIDE RECORDS SUMMARY | 2024-07-16 16:03 | XMS_ITS | Encounter Summary ---
Author Organization [facility] [facility] Address [address] [place] [address] Care Team Providers Care Quarry Equipment Operator Name Role Phone Lori Hernandez MD Primary Care Pro vider Encounter Details Date Type Department Care Team (Late st Contact Info) Description 02/10/2023 Abstract [facility] [address] [place] [phone] [place] Social History Tobacco Use Types [...] Description 07/22/2024 11:30 AM EDT Clinical Support [facility] [address] [place] [phone] 08/06/2024 1:00 PM EDT Office Visit [facility] [address] [place], [place] [phone] Lori Hernandez MD 230 [place], [place] [phone] 10/15/2024 1:00 PM EDT Office Visit [facility] OPTOM[facility]RY [address] [place] [phone] Fernanda Randall, OD 230 [place], [place] [phone] documented as of this encounter Procedures Procedure [...] documented as of this encounter Care Teams Quarry Equipment Operator Relationship Specialty Start Date End Date Lori Hernandez MD 230 [place], [place] [phone] PCP - General Internal Medicine 10/15/22 documented as of this encounter
[2024-07-16 18:34] LABS: MANUAL DIFF FLAG NO
[2024-07-16 18:44] LABS: Basophils Absolute Auto 0.1 X10*3/uL (0.0-0.2); Basophils Percent Auto 0.8 % (0-2); Eosinophils Absolute Auto 0.2 X10*3/uL (0.0-0.4); Eosinophils Percent Auto 2.5 % (0-4); Hematocrit 40.2 % (37.0-47.0); Imm Gran Abs Auto 0.02 X10*3/uL (0.00-0.03); Imm Gran Pct Auto 0.3 % (0.0-0.4); Lymphocytes Absolute Auto 1.6 X10*3/uL (1.2-4.9); Lymphocytes Percent Auto 20.7 % (20-40); Mean Corpuscular HGB Conc 32.3 g/dl (31.0-35.0); Mean Corpuscular Hemoglobin 29.6 pg (27.0-33.0); Mean Corpuscular Volume 91.6 fL (80.0-98.0); Mean Platelet Volume 10.4 fL (9.4-12.3); Monocytes Absolute Auto 0.7 X10*3/uL (0.1-1.2); Monocytes Percent Auto 8.8 % (2-11); Neutrophils Absolute Auto 5.3 x10*3/uL (2.0-8.3); Neutrophils Percent Auto 66.9 % (45-73); Platelet Count 245 X10*3/uL (160-400); Red Blood Count 4.39 X10*6/uL (4.20-5.50); Red Cell Distribution Width 13.7 % (11.0-16.0); White Blood Count 7.9 X10*3/uL (4.8-10.8)
[2024-07-16 19:47] LABS: Alanine Aminotransferase 16 U/L (0-31); Anion Gap 12 (12-20); Aspartate Amino Transferase 25 U/L (5-31); Blood Urea Nitrogen 10 mg/dL (9-16); C Reactive Protein 0.11 mg/dL (< or = 0.50); Calcium 8.6 mg/dL (8.4-10.2); Carbon Dioxide 22 mmol/L (22-29); Chloride 111 mmol/L (96-108); Estimated Glomerular Filt Rate > 60; Glucose Random 79 mg/dL (60-115); Potassium 4.1 mmol/L (3.3-5.1); Sodium 141 mmol/L (135-145)
[2024-07-16 20:12] LABS: Erythrocyte Sedimentation Rate 6 MM/HR (0-20)
== END 2024-07-16 12:41 | disposition home or self-care (01) ==
LOC: HO.HKASLDS 12:40
PROVIDERS: PCP Student in an Organized Health Care Education/Training Program; Visit Provider Internal Medicine Rheumatology
DX: Z79.899 Other long term (current) drug therapy (principal); Z79.60 Long term (current) use of unspecified immunomodulators and immunosuppressants; I10 Essential (primary) hypertension; M06.00 Rheumatoid arthritis without rheumatoid factor, unspecified site; M25.551 Pain in right hip; M25.552 Pain in left hip; M25.561 Pain in right knee; M25.562 Pain in left knee; G89.29 Other chronic pain
CPT/HCPCS: 36415; 80048; 84450; 84460; 85025; 85652; 86140; 99212

== ENCOUNTER 2024-08-06 11:15 | Outpatient (REF) | payer MEDICAID, SELFPAY ==
--- NOTE | ~2024-08-06 | XR_ITS ---
CLINICAL HISTORY: M25.569 - Pain in unspecified knee AP standing view of bilateral knees, one view of right knee, and one view of left knee Comparison: None Findings: Bones intact. No dislocations. No significant arthritic change or erosions. No joint effusion. No radiopaque foreign body. IMPRESSION: 1. No acute findings. This document has been electronically signed by: Alberto Hernadez MD on 08/07/2024 15:50:43
--- NOTE | ~2024-08-06 | XR_ITS ---
EXAMINATION: XR BILATERAL HIPS WITH AP PELVIS CLINICAL INFORMATION: M25.559 - Pain in unspecified hip COMPARISON: None available. TECHNIQUE: AP view of the pelvis and single views of each hip were obtained. FINDINGS: No acute cortical disruption or malalignment in either coxofemoral joint. No lytic or blastic lesions. XR/XR hips MIREYA min 3V IMPRESSION: Normal x-ray hips Electronically signed by: Torsten Solomon MD 08/07/2024 08:39 AM EDT
--- OUTSIDE RECORDS SUMMARY | 2024-08-06 13:35 | XMS_ITS | Encounter Summary ---
Author Organization [employer] [facility] Address [address] [place] [address] Care Team Providers Care Sewing Room Supervisor Name Role Phone Lori Hernandez MD Primary Care Pro vider Reason for Referral * Consultation (Routine) - Pending Review Specialty Diagnoses / Procedures Referred By Mar lopez Referred To Contact Allergy Diagnoses History of penicillin allergy Lori Hernandez MD [address] [place] [address] Phone: tel: fax: Referral ID Status Reason Start Date Expiration Date Visits Requested Visits Authorized [id number] Pending Review Specialty Services Required 08/06/2024 08/06/2025 1 1 * Consultation (Routine) - Pending Review Specialty Diagnoses / Procedures Referred By Mar lopez Referred To Contact Gastroenterology Diagnoses Colon cancer screening Lori Hernandez MD [address] [place] [address] Phone: tel: fax: Referral ID Status Reason Start Date Expiration Date Visits Requested Visits Authorized [id number] Pending Review Specialty Services Required 08/06/2024 08/06/2025 1 1 Reason for Visit * Reason Comments Hypertension Encounter Details Date Type Department Care Team ([facility] st Contact Info) Description 08/06/2024 1:00 PM EDT Office Visit [facility] [address] [place] [address] [phone] Lori Hernandez MD [address] [place] [phone] Essential hypertension (Primary Dx); Dietary counseling; Exercise counseling; Seronegative rheumatoid arthritis (CMS/HCC); Colon cancer screening; History of penicillin allergy Social History Tobacco Use Types Packs/Day Years Used Date Smoking Tobacco: Never Smokeless Tobacco: Never Tobacco Cessation:Counseling Given: Not Answered Alcohol Use Standard Drinks/Week Comments Yes 0 (1 standard drink = 0.6 oz pur e alcohol) social Depression Answer Date Recorded Patient Health Questionnaire-9 Score 0 06/07/2023 Patient Health Questionnaire-9 Score 0 06/07/2023 Last PHQ-9: Questionnaire Data Not on file 0 06/07/2023 Housing Stability Answer Date Recorded What is your housing situation today? Not on taz e 08/06/[address] you li ve. Do you have problems with any of the following? None of the above 08/06/2024 Food Insecurity Answer Date Recorded Within the past 12 months, y ou worried that your food would run out before you got money to buy more: Never True 08/06/2024 Within the past 12 months,th e food you bought just didn't last and you didn't have enough money to get more: Never True 05/2024 Transportation Answer Date Recorded In the past 12 months, has l ack of transportation kept you from medical appts, meetings, work or from getting things needed for daily living? No 08/06/2024 Utilities Answer Date Recorded In the past 12 months, has t he electric, gas, oil or water company threatened to shut off services in your home? No 08/06/2024 Depression Answer Date Recorded Patient Health Questionnaire-2 [...] Sign Reading Time Taken Comments Blood Pressure 136/78 08/06/2024 1:04 PM EDT Pulse 79 08/06/2024 1:04 PM EDT Temperature 36.3 ??C (97.3 ??F) 08/06/2024 1:04 PM ED T Respiratory Rate 20 08/06/2024 1:04 PM EDT Oxygen Saturation 98% 08/06/2024 1:04 PM EDT Inhaled Oxygen Concentration - - Weight 102 kg (224 lb 12.8 oz) 08/06/2024 1:04 P M EDT Height 154.9 cm (5' 1 ) 08/06/2024 1:04 PM EDT Body Mass Index 42.48 08/06/2024 1:04 PM EDT documented in this encounter Plan of Treatment Upcoming Encounters Date Type Department Care Team (Late st Contact Info) Description 10/15/2024 1:00 PM EDT Office Visit [facility] [address] [place], [place] [phone] Prakash, Fernanda, OD 230 [place] [address] Scheduled Orders Name Type Priority Associated Diagnoses Orde r Schedule Albumin, Random Urine W/Creatinine Lab Routine Essential hypertension Expected: 08/06/2024 (Approximate), Expires: 08/06/2025 Scheduled Referrals Name Type Priority Associated Diagnoses Order Schedule Referral to Gastroenterology Outpatient Referral Routine Colon cancer screening Expected: 08/06/2024 (Approximate), Expires: 08/06/2025 Referral to Allergy Outpatient Referral Routine History of penicillin allergy Expected: 08/06/2024 (Approximate), Expires: 08/06/2025 documented as of this encounter Visit Diagnoses Diagnosis Essential hypertension- Primary Unspecified essential hypertension Dietary counseling Dietary surveillance and counseling Exercise counseling Seronegative rheumatoid arthritis ([facility]) Rheumatoid arthritis Colon cancer screening Special screening for malignant neoplasms, colon History of penicillin allergy Personal history of allergy to penicillin documented in this encounter Additional Health Concerns Assessment Noted Time PHQ-9 Depression Total Score: 0 06/07/19 24 2:28 PM EST documented as of this encounter Care Teams Sewing Room Supervisor Relationship Specialty Start Date End Date Lori Hernandez MD [address] [place] [address] PCP - General Internal Medicine 10/15/22 documented as of this encounter
--- OUTSIDE RECORDS SUMMARY | 2024-08-06 13:35 | XMS_ITS | Encounter Summary ---
Author Organization [employer] [facility] Address [address] [place] [address] 7 [place] [address] Care Team Providers Care Order Entry Technician Name Role Phone Lori Hernandez MD Primary Care Pro vider Encounter Details Date Type Department Care Team (Late st Contact Info) Description 02/10/2023 Abstract [facility] [address] [place], [place] [phone] She [place] Social History Tobacco Use Types [...] Description 10/15/2024 1:00 PM EDT Office Visit [facility] OPTOMETRY [address] [place], [place] [phone] Fernanda Randall, OD 230 [place], [place] [phone] documented as of this encounter Procedures Procedure Name Priority Date/Time Associated Diagnosis Comments PAP/HPV Routine 05/20/2021 documented in this encounter Results * Hm Pap Smear (05/20/2021) Pap Negative for intraephithelial lesion or malignancy Negative for intraephithelial lesion or malignancy, Other HPV Undetected us Historical Provider HEALTH MAINTENANCE Final Result documented in this encounter Visit Diagnoses Not on filedocumented in this encounter Additional Health Concerns Assessment Noted Time PHQ-9 Depression Total Score: 0 10/15/19 11:02 AM EDT documented as of this encounter Care Teams Order Entry Technician Relationship Specialty Start Date End Date Lori Hernandez MD [address] [place] [address] PCP - General Internal Medicine 10/15/22 documented as of this encounter
--- OUTSIDE RECORDS SUMMARY | 2024-08-06 13:35 | XMS_ITS | Encounter Summary ---
Author Organization [employer] Address [address] [facility] 7t [place] [address] Care Team Providers Care Risk Management Analyst Name Role Phone Lori Hernandez MD Primary Care Pro vider Encounter Details Date Type Department Care Team (Latest Contact Info) Description 08/06/2024 Travel Social History Tobacco Use Types Packs/Day [...] Description 10/15/2024 1:00 PM EDT Office Visit [facility] OPT[facility] [address] [place], [place] [phone] Fernanda Randall, OD 230 [place], [place] [phone] documented as of this encounter Visit Diagnoses Not on filedocumented in this encounter Additional Health Concerns Assessment Noted Time PHQ-9 Depression Total Score: 0 06/07/19 24 2:28 PM EST documented as of this encounter Care Teams Risk Management Analyst Relationship Specialty Start Date End Date Lori Hernandez MD 230 [place], [place] [phone] PCP - General Internal Medicine 10/15/22 documented as of this encounter
--- OUTSIDE RECORDS SUMMARY | 2024-08-06 13:35 | XMS_ITS | Clinical Summary ---
Author Organization [employer] Address [address] [place] [address] [address] [place] [address] Care Team Providers Care Taxicab Dispatcher Name Role Phone Lori Hernandez MD Primary [...] MOUTH EVERY DAY WITH FOOD 023 Active ferrous sulfate 325 (65 Fe) MG tablet TAKE 1 TABLET BY MOUTH EVERY OTHER DAY 45 tablet 024 Active cyclobenzaprine (Flexeril) 10 MG tabletIndicatio [...] ONCE PER DAY. 90 capsule 025 Active Semaglutide-Neil ght Management (Wegovy) 0.25 MG/0.5ML solution auto-injector Inject 0.25 mg subcutaneously once a week for weeks 1-4 Then increase to 0.5 mg weekly 2 mL 024 2024 Discontinued(O ther) Semaglutide-Neil ght Management (Wegovy) 0.5 MG/0.5ML solution auto-injector Inject 0.5 mg subcutaneously weekly on weeks 5-8 2 mL 3 024 2024 Discontinued(O ther) D3-1000 25 MCG (1000 UT) capsule TAKE [...] Encounters Date Type Department Care Team Description 08/06/2024 1:00 PM EDT Office Visit [facility] [address] [place] [address], [place] [address] Lori Hernandez MD Essential hypertension (Primary Dx); Dietary counseling; Exercise counseling; Seronegative rheumatoid arthritis (CMS/HCC); Colon cancer screening; History of penicillin allergy 08/06/2024 Travel 07/29/2024 Telephone [facility] [address] [facility] [address] Lori Hernandez MD stable lab letter 07/29/2024 Telephone [facility] [address] [facility] [address] Lori Hernandez MD chart prep 07/29/2024 Telephone [facility] [address] [facility] [place] [address] Lori Hernandez MD Referral 07/22/2024 11:30 AM EDT Clinical Support [facility] [address] Tram Esparza RN Essential hypertension 07/22/2024 Travel 07/21/2024 Travel 07/19/2024 Population Health Risk Score [facility] (C3) Department [address] [place] [phone] Provider, Population Health Generic 07/16/2024 Orders Only GENERIC EXTERNAL DATA DEPARTMENT Provider, Generic External Data 07/15/2024 Refill [facility] [address] [place] [address] Heather Valencia DO 07/08/2024 11:30 AM EST Office Visit [facility] [place] [address] Glen BurnieCarolann, HUANG Essential hypertension (Primary Dx) 07/08/2024 Travel 07/06/2024 Travel 07/05/2024 Telephone [facility] [place] [address] Tram Esparza, RN Nurse Triage 06/28/[address] [facility] [address] [place] [address] Lroi Hernandez MD 06/16/[address] [phone] Lori Hernandez MD Anxiety 05/28/2024 2:30 PM EST Office Visit [facility] [address] [facility] [place] [address] Prakash, Megan, OD Presbyopia of both eyes (Primary Dx) 05/09/[address] [facility] [address] [place] [address] Bakari Strickland MD Essential hypertension from Last 3 Months Immunizations Name Administration [...] Mass Index 42.48 08/06/2024 1:04 PM EDT Plan of Treatment Upcoming Encounters Date Type Department Care Team (Late st Contact Info) Description 10/15/2024 1:00 PM EDT Office Visit [facility] [address] [place] [address] Fernanda Randall, OD [address] [place] [address] Health Maintenance Due Date Last Done Comments [...] Screening 06/07/2024 06/07/2023, 06/07/19 24 Tobacco Screening 08/06/2025 08/06/2024 Mammogram 09/03/2025 09/04/2023, 08/07, 06/13/2023, Additional history [...] Procedure Name Priority Date/Time Associated Diagnosis Comments SED RATE BY MODIFIED TIFFANIEREN Routine 07/16/2024 1:20 PM EDT C-REACTIVE PROTEIN Routine 07/16/2024 1: 20 PM EDT ALT Routine 07/16/2024 1:20 PM EDT AST Routine 07/16/2024 1:20 PM EDT CBC WITH AUTO DIFFERENTIAL Routine 07/16/2024 1:20 PM EDT BASIC METABOLIC PANEL Routine 07/16/2024 1:20 PM EDT Essential hypertension HEPATITIS C AB W/REFL TO HCV RNA, [...] Recently Relevant to Health Maintenance Results * CBC auto differential (07/16/2024 1:20 PM EDT) White Blood Count 7.9 4.8 - 10.8 X10*3/uL [facility] Red Blood Count 4.39 4.20 - 5.50 X10*6/uL [facility] Hemoglobin 13.0 12.0 - 16.0 g/dl [facility] Hematocrit 40.2 37.0 - 47.0 % [facility] Mean Corpuscular Volume 91.6 80.0 - 98.0 fL [facility] Mean Corpuscular Hemoglobin 29.6 27.0 - 33.0 pg [facility] Mean Corpuscular HGB Conc 32.3 31.0 - 35.0 g/dl [facility] Red Cell Distribution Width 13.7 11.0 - 16.0 % [facility] Platelet Count 245 160 - 400 X10*3/uL [facility] Mean Platelet Volume 10.4 9.4 - 12.3 fL [facility] Neutrophils Percent Auto 66.9 45 - 73 % [facility] Imm Gran Pct Auto 0.3 0.0 - 0.4 % [facility] Lymphocytes Percent Auto 20.7 20 - 40 % [facility] Monocytes Percent Auto 8.8 2 - 11 % [facility] Eosinophils Percent Auto 2.5 0 - 4 % [facility] Basophils Percent Auto 0.8 0 - 2 % [facility] NRBC Pct Auto 0.0 0.0 - 0.2 /100WBC [facility] Neutrophils Absolute Auto 5.3 2.0 - 8.3 x10*3/uL [facility] Imm Gran Abs Auto 0.02 0.00 - 0.03 X10*3/uL [facility] Lymphocytes Absolute Auto 1.6 1.2 - 4.9 X10*3/uL [facility] Monocytes Absolute Auto 0.7 0.1 - 1.2 X10*3/uL [facility] Eosinophils Absolute Auto 0.2 0.0 - 0.4 X10*3/uL [facility] Basophils Absolute Auto 0.1 0.0 - 0.2 X10*3/uL [facility] NRBC Abs Auto 0.000 0.0 - 0.012 X10*3/uL [facility] 07/16/2024 1:20 PM EDT 07/16/2024 6:28 PM EDT us Generic External Data Provider LAB BLOOD ORDERAB LES Final Result Performing Organization Address [facility]/ZIP Co de Phone Number [facility] [address] [place] [phone] * Sed Rate by Modified Barbara (07/16/2024 1:20 PM EDT) Erythrocyte Sedimentation Rate 6 0 - 20 MM/HR [facility] Comment:Patients with polycy themia and many hemoglobin abnormalitiesmay have depressed sed rates whereas patients with anemiamay have elevated sed rates. 07/16/2024 1:20 PM EDT 07/16/2024 6:28 PM EDT us Generic External Data Provider LAB BLOOD ORDERAB LES Final Result Performing Organization Address [facility] Co de Phone Number [facility] [address] [place] [phone] * C-reactive Protein (07/16/2024 1:20 PM EDT) C Reactive Protein 0.11 < or = 0.50 mg/dL [facility] 07/16/2024 1:20 PM EDT 07/16/2024 6:28 PM EDT us Generic External Data Provider LAB BLOOD ORDERAB LES Final Result Performing Organization Address City/[facility]/ZIP Co de Phone Number [facility] [address] [place] [phone] * ALT (07/16/2024 1:20 PM EDT) Alanine Aminotransferase 16 0 - 31 U/L [facility] 07/16/2024 1:20 PM EDT 07/16/2024 6:28 PM EDT Generic External Data Provider LAB BLOOD ORDERAB LES Final Result Performing Organization Address City/[facility]/ZIP Co de Phone Number [facility] [address] [place] [phone] * AST (07/16/2024 1:20 PM EDT) Pathologist [facility] Aspartate Amino Transferase 25 5 - 31 U/L [facility] 07/16/2024 1:20 PM EDT 07/16/2024 6:28 PM EDT Generic External Data Provider LAB BLOOD ORDERAB LES Final Result Performing Organization Address [facility] Co de Phone Number [facility] [address] [place] [phone] * (ABNORMAL) Basic Metabolic Panel (07/16/2024 1:20 PM EDT) Pathologist [facility] Sodium 141 135 - 145 mmol/L [facility] Potassium 4.1 3.3 - 5.1 mmol/L [facility] Chloride 111(H) 96 - 108 mmol/L [facility] Carbon Dioxide 22 22 - 29 mmol/L [facility] Anion Gap 12 12 - 20 [facility] Urea Nitrogen (BUN) 10 9 - 16 mg/dL [facility] Creatinine, Serum 0.77 0.5 - 1.4 mg/dL [facility] Estimated Glomerular Filt Rate >60 [facility] Comment:Chronic Kidney Disea se: Estimated GFR < 60 mL/min/[id number] Kidney Disease: Estimated GFR < 15 mL/min/1.73m2 Glucose 79 60 - 115 mg/dL [facility] Calcium 8.6 8.4 - 10.2 mg/dL [facility] Blood Venous blood specimen / Unknown 07/16/2024 1:20 PM EDT 07/16/2024 6:28 PM EDT [facility] [employer] LAB BLOOD ORDERABLES Final Re sult Performing Organization Address City/[facility]/ZIP Co de Phone Number [facility] [address] [place] [phone] * Hepatitis C Antibody with Reflex to HCV, RNA, Quantitative, Real-Time PCR (10/18/2023 10:43 AM EDT) Hepatitis C Antibody Nonreactive Nonreactive [facility] Comment:Antibodies to HCV no t detected; does not exclude early acuteHCV infection. Blood Venous blood specimen / Unknown 10/18/2023 10:43 AM EDT 10/18/2023 11:21 AM EDT Lori Mccann MD LAB BLOOD ORDERAB LES Final Result Performing Organization Address [facility]/ZIP Co de Phone Number [facility] [address] [place] [phone] * HIV-1/2 Antigen and Antibodies, Fourth Generation, with Reflexes (10/18/2023 10:43 AM EDT) HIV AB/AG Nonreactive Nonreactive [facility] Comment:HIV-1 p24 Ag and/or HIV-1/HIV-2 Ab not detected.A test result that is nonreactive does not exclude thepossibility of exposure to or infection with HIV-1 and/orHIV-2. Nonreactive results in this assay for individualswith prior exposure to HIV-1 and/or HIV-2 may be due toantigen and antibody levels that are below the limit ofdetection of this assay.The [employer] HIV Ag/Ab Combo assay result andsupplemental assay results should be interpreted inconjunction with the patient's clinical presentation,history and other laboratory results. If the results areinconsistent with clinical evidence, additional testing issuggested to confirm the result. Blood Venous blood specimen / Unknown 10/18/2023 10:43 AM EDT 10/18/2023 11:21 AM EDT Lori Mccann MD LAB BLOOD ORDERAB LES Final Result Performing Organization Address [facility]/ZIP Co de Phone Number [facility] [address] [place] [phone] * Lipid Panel, Standard (10/18/2023 10:43 AM EDT) Triglycerides 69 <150 mg/dL [facility] Comment:Desirable Triglyceri de: less than 150 mg/dLBorderline High Triglyceride 150-199 mg/dLHigh Triglyceride: 200-499 mg/dLVery High Triglyceride: greater than or equal to 5OO mg/dL Cholesterol 140 <200 mg/dL [facility] Comment:Desirable Cholestero l: less than 200 mg/dLBorderline High Cholesterol: 200-239 mg/dLHigh Cholesterol: greater than 239 mg/dL LDL Cholesterol Calculated 81 <100 mg/dL [facility] Comment:Desirable LDL: less than 100 mg/dLNear Optimal/Above Optimal LDL: 110- 129 mg/dLBorderline High LDL: 130-159 mg/dLHigh LDL: 160-189 mg/dLVery High LDL: greater than or equal to 190 mg/dL HDL Cholesterol 46 >40 mg/dL [facility] Comment:Desirable HDL: great er than 40 mg/dL Note: This HDL assay may give artificially low results in patients with liver disease. Blood Venous blood specimen / Unknown 10/18/2023 10:43 AM EDT 10/18/2023 11:21 AM EDT Lori Mccann MD LAB BLOOD ORDERAB LES Final Result Performing Organization Address [facility]/ZIP Co de Phone Number [facility] [address] [place] [phone] * BI US Breast Limited Left (09/04/2023 12:47 PM EDT) Anatomical Region Laterality Modality Breast Left Ultrasound 09/04/2023 12:4 7 PM EDT Narrative 09/08/2023 2:39 PM EDT ? [facility] ? [address] ?[place], [place] [address] ? Ultrasound Report ? Signed ? Patient: Gordon,Lesley ?MR#: [id number] ?? [id number] ? : 1975 ?Acct:[id number] ? Age/Sex: 47 / F ?ADM Date: 09/04/23 ? Loc: HO.MAMMO ? Attending Dr: Lori Mccann MD ? Ordering Physician: Travis Reyes MD ?? Date of Service: 09/04/23 ?? Procedure(s): US breast LT limited mamm only ?? Accession Number(s): [id number] ? cc: Travis Reyes MD; Lori Hernandez [...] 1411 ? DD/ 1247 ? TD/TT: ? Hand Compositor: ? Procedure Note Donguido, Image - 09/08/2023 [facility] [address] [place] [address] Ultrasound Report Signed Patient: Noelle Gordon#: [id number] : 1975Acct:[id number] Age/Sex: 47 / FADM Date: 09/04/23 Loc: HO.MAMMO Attending Dr: Lori Mccann MD Ordering Physician: Travis Reyes MD Date of Service: 09/04/23 Procedure(s): US breast LT limited mamm only Accession Number(s): [id number] cc: Travis Reyes MD; Lori Hernandez MD EXAMINATION: MM DIAGNOSTIC DIGITAL [...] in OV> 09/08/23 1411 DD/ 1247 TD/TT: Hand Compositor: Travis Reyes MD [facility] US PROCEDURES Final Result * Pap Smear (05/20/2021) Pap Negative for intraephithelial lesion or malignancy Negative for intraephithelial lesion or malignancy, Other HPV Undetected Historical Provider HEALTH MAINTENANCE Final Result from Last 3 Months or Most Recently Relevant to Health Maintenance Insurance [employer] Care Teams Taxicab Dispatcher Relationship Specialty Start Date End Date Lori Hernandez MD [address] [place] [phone] PCP - General Internal Medicine 10/15/22
--- OUTSIDE RECORDS SUMMARY | 2024-08-06 13:35 | XMS_ITS | Encounter Summary ---
Author Organization [employer] Address [address] [place] [address] [address] [place] [address] Care Team Providers Care Title Closer Name Role Phone Nohemi Queen Tiara ENCINAS Primary Care Provider [phone] Lori Hernandez MD Primary Care Pro vider Encounter Details Date Type Department Care Team ([facility] Contact Info) Description 05/12/2022 Orders Only [facility] [address] [place], [place] [phone] Heather Hammond LPN Social History Tobacco Use [...] Department Care Team (Late Contact Info) Description 10/15/2024 1:00 PM EDT Office Visit [facility] [address] [place], [place] [phone] Fernanda Randall, OD [address] [place], [place] [phone] documented as of this encounter Visit Diagnoses Not on filedocumented in this encounter Care Teams Title Closer Relationship Specialty Start Date End Date Nohemi Queen FNP PCP - General Family Medicine 03/03/21 10/14/22 Lori Hernandez MD [address] [place] [phone] PCP - General Internal Medicine 10/15/22 documented as of this encounter
[2024-08-06 18:07] LABS: Creatinine Urine 106.79 mg/dL; Microalbum/Creatinine Ratio Ur 6.5 ug/mg cr (<30)
== END 2024-08-06 11:16 | disposition home or self-care (01) ==
LOC: HO.XRAY 11:15
PROVIDERS: PCP Student in an Organized Health Care Education/Training Program; Visit Provider Internal Medicine Rheumatology
DX: M25.559 Pain in unspecified hip (principal); I10 Essential (primary) hypertension; M25.569 Pain in unspecified knee
CPT/HCPCS: 73522; 73560; 82043; 82570

== ENCOUNTER → 2024-08-06 11:20 | Outpatient (BNV) | payer MEDICAID, SELFPAY | PROVIDERS: PCP Student in an Organized Health Care Education/Training Program; Visit Provider Radiology Diagnostic Radiology | DX: M25.551 Pain in right hip (principal); M25.552 Pain in left hip; M25.561 Pain in right knee; M25.562 Pain in left knee | CPT/HCPCS: 73522; 73560 ==

== ENCOUNTER 2024-10-16 12:52 | Outpatient (REF) | payer MEDICAID, SELFPAY ==
[2024-10-16 18:12] LABS: MANUAL DIFF FLAG NO
[2024-10-16 18:31] LABS: Basophils Absolute Auto 0.1 X10*3/uL (0.0-0.2); Eosinophils Absolute Auto 0.2 X10*3/uL (0.0-0.4); Eosinophils Percent Auto 2.2 % (0-4); Hematocrit 40.8 % (37.0-47.0); Hemoglobin 13.6 g/dl (12.0-16.0); Imm Gran Abs Auto 0.02 X10*3/uL (0.00-0.03); Imm Gran Pct Auto 0.3 % (0.0-0.4); Lymphocytes Absolute Auto 1.7 X10*3/uL (1.2-4.9); Lymphocytes Percent Auto 24.9 % (20-40); Mean Corpuscular HGB Conc 33.3 g/dl (31.0-35.0); Mean Corpuscular Hemoglobin 30.8 pg (27.0-33.0); Mean Corpuscular Volume 92.3 fL (80.0-98.0); Mean Platelet Volume 10.9 fL (9.4-12.3); Monocytes Absolute Auto 0.7 X10*3/uL (0.1-1.2); Monocytes Percent Auto 10.3 % (2-11); Neutrophils Absolute Auto 4.1 x10*3/uL (2.0-8.3); Neutrophils Percent Auto 61.3 % (45-73); Platelet Count 209 X10*3/uL (160-400); Red Blood Count 4.42 X10*6/uL (4.20-5.50); Red Cell Distribution Width 13.2 % (11.0-16.0); White Blood Count 6.7 X10*3/uL (4.8-10.8)
[2024-10-16 18:37] LABS: Alanine Aminotransferase 25 U/L (0-31); Aspartate Amino Transferase 32 U/L (5-31); C Reactive Protein 0.18 mg/dL (< or = 0.50); Estimated Glomerular Filt Rate > 60
[2024-10-16 19:19] LABS: Erythrocyte Sedimentation Rate 7 MM/HR (0-20)
== END 2024-10-16 12:53 | disposition home or self-care (01) ==
LOC: HO.HKASLDS 12:52
PROVIDERS: PCP Student in an Organized Health Care Education/Training Program; Visit Provider Internal Medicine Rheumatology
DX: M06.00 Rheumatoid arthritis without rheumatoid factor, unspecified site (principal); Z79.60 Long term (current) use of unspecified immunomodulators and immunosuppressants; M25.552 Pain in left hip; M25.551 Pain in right hip; M25.561 Pain in right knee; M25.562 Pain in left knee; G89.29 Other chronic pain; Z79.899 Other long term (current) drug therapy
CPT/HCPCS: 36415; 82565; 84450; 84460; 85025; 85652; 86140; 99212

== ENCOUNTER 2024-10-16 12:52 | Outpatient (AMB) | payer MEDICAID, SELFPAY ==
--- NOTE | 2024-10-16 12:56 | MHC.OFFVIS ---
Vital Signs 10/16/24 12:57 Height 5 ft 1 in Weight 221 lb 4 oz BMI 41.8 BP 128/70 Blood Pressure Location Lt brachial Position Sitting Pulse 78 Pulse Source Pulse Oximeter Pulse Oximetry (%) 95 Oxygen Delivery Method Room Air Intake Visit Reasons: 3 Months Intake Note: Patient presents for RA follow up today. Patient complains of right hand pain today, she states it's been about a month. Allergies aspirin [ASPIRIN] Allergy (Intermediate, Verified 10/16/24 13:00) RASH codeine [CODEINE] Allergy (Intermediate, Verified 10/16/24 13:00) VOMITING, nausea and vomiting Penicillins [PENICILLINS] Allergy (Intermediate, Verified 10/16/24 13:00) RASH HPI HPI 3 Months: Details: She has been experiencing right hand and wrist pain especially at night. Morning stiffness is 1 hour. She sees swelling in the morning that subsides by the evening. No recent infections. She does not have hip pain anymore. She continues to take meloxicam 15 mg daily. [facility] Medical History Nipple discharge Suppurative hidradenitis Morbid obesity Seronegative rheumatoid arthritis Hx of hidradenitis suppurativa History of fracture of clavicle Back pain Fibromyalgia Arthritis Surgical History Hx of tubal ligation Family History Maternal Grandfather Diabetes Brother Diabetes Stroke Brother Diabetes Mother HTN (hypertension) Social History Alcohol intake: never Patient Tobacco Use Status: Former Tobacco user Female Reproductive History Menstrual Age of Menarche: 11 Physical Exam Vital Signs: Last Vital Signs Pulse 78 10/16/24 12:57 BP 128/70 10/16/24 12:57 Pulse Ox 95 10/16/24 12:57 Oxygen Delivery Method Room Air 10/16/24 12:57 BMI result Body Mass Index 41.8 Const Other: General: Comfortable CVS: RRR Respiratory: clear to auscultation bilaterally. Good respiratory effort Skin: No lesions seen MSK: Tender to palpate right MCPs, PIP, interphalangeal joint and wrist. No synovitis. No tenderness to palpation of trochanteric bursae. No crepitus. Normal range of motion of upper extremities and lower extremities. Assessment & Plan Assessment & Plan (1) Seronegative rheumatoid arthritis: Comment: Right hand polyarthritis is uncontrolled likely related to inflammatory arthritis. Rheumatology history: Seronegative. Diagnosed at age 34. Initially on monotherapy for methotrexate for a long time. She developed panic attacks with subcutaneous methotrexate. Leflunomide added 2021 to present. Hydroxychloroquine added 07/25/2021 to present. Code(s): M06.00 - Rheumatoid arthritis without rheumatoid factor, unspecified site Category: Medical Plan: Labs for disease and drug monitoring on high-risk medication ordered Continue hydroxychloroquine 400 mg daily. VF 2022. She had visual field testing yesterday. I have requested that she contact scrap preparer to find out when she had last OCT exam. She will schedule OCT exam if it has been more than 1 year. I have asked ask her scrap preparer to send clinic note from last OCT testing Continue leflunomide 20 mg daily Increase sulfasalazine to 1000 mg twice a day After lab results are back and kidney function is sufficient, I will start Bactrim for PCP prophylaxis this patient is on 3 immunosuppressive therapies for maintenance Prednisone course prescribed Stop meloxicam due to increased risk of GI side effects with concurrent prednisone use Return to clinic in 3 months (2) Hip pain: Comment: Resolved on meloxicam. She likely had pain from trochanteric bursitis radiating to groin area. Hip x-rays July 2024 normal. Code(s): M25.559 - Pain in unspecified hip Category: Medical Qualifiers: Laterality: bilateral Qualified Code(s): M25.551 - Pain in right hip; M25.552 - Pain in left hip Plan: Monitor clinically (3) Knee pain: Comment: Resolved on meloxicam. X-ray bilateral knees July 2024 normal. Code(s): M25.569 - Pain in unspecified knee Category: Medical Qualifiers: Chronicity: chronic Laterality: bilateral Qualified Code(s): M25.561 - Pain in right knee; M25.562 - Pain in left knee; G89.29 - Other chronic pain Plan: X-ray bilateral knees ordered Return to clinic in 3 months (4) Hip pain: Comment: Resolved on meloxicam. She likely had pain from trochanteric bursitis radiating to groin area. Hip x-rays July 2024 normal. Code(s): M25.559 - Pain in unspecified hip Category: Medical Qualifiers: Laterality: bilateral Qualified Code(s): M25.551 - Pain in right hip; M25.552 - Pain in left hip Plan: Monitor clinically Discontinue meloxicam (5) Knee pain: Comment: Resolved on meloxicam. X-ray bilateral knees July 2024 normal. Code(s): M25.569 - Pain in unspecified knee Category: Medical Qualifiers: Chronicity: chronic Laterality: bilateral Qualified Code(s): M25.561 - Pain in right knee; M25.562 - Pain in left knee; G89.29 - Other chronic pain Plan: Monitor clinically Discontinue meloxicam (6) Other joint terminal attack controller (current) drug therapy: Code(s): Z79.899 - Other intermediate (current) drug therapy Category: Medical Plan: See above Plan . Orders: Orders Alanine Aminotransferase Today M06.00 - Rheumatoid arthritis without rheumatoid factor, unspecified site, Z79.60 - terminal press operator (current) use of unspecified immunomodulators and immunosuppressants Erythrocyte Sedimentation Rate Today M06.00 - Rheumatoid arthritis without rheumatoid factor, unspecified site Creatinine Today M06.00 - Rheumatoid arthritis without rheumatoid factor, unspecified site, Z79.60 - terminal press operator (current) use of unspecified immunomodulators and immunosuppressants Aspartate Amino Transferase Today M06.00 - Rheumatoid arthritis without rheumatoid factor, unspecified site, Z79.60 - long-term (current) use of unspecified immunomodulators and immunosuppressants C Reactive Protein Today M06.00 - Rheumatoid arthritis without rheumatoid factor, unspecified site Complete Blood Count Auto Diff Today M06.00 - Rheumatoid arthritis without rheumatoid factor, unspecified site, Z79.60 - long-term (current) use of unspecified immunomodulators and immunosuppressants Medications: New prednisone Take 4 tablets daily for 3 days, 3 tablets daily for 3 days, 2 tablets daily for 3 days, 1 tablet daily for 3 days, then stop. 5 mg PO DIRECTED 30 tabs 0RF Changed From sulfasalazine give with food (meal/snack) 0.5 grams PO BID 180 tabs 0RF To sulfasalazine give with food (meal/snack) 1 g (2 x 500 mg) PO BID 180 tabs 0RF Refilled leflunomide Dispense 90 day supply. 20 mg PO DAILY 90 tabs 0RF hydroxychloroquine Take 2 tablets daily. Dispense 90 day supply. 400 mg (2 x 200 mg) PO DAILY 180 tabs 1RF Discontinued meloxicam Take with food Discontinued Reason: Doctor's Order 15 mg PO DAILY 30 tabs 2RF Coding Level of Care Code Est Pt Level 4 (18464) Complex EM visit Add On G2211 Diagnoses Seronegative rheumatoid arthritis M06.00 Bilateral hip pain M25.551; M25.552 Laterality: bilateral Chronic pain of both knees M25.561; M25.562; G89.29 Chronicity: chronic Laterality: bilateral Other joint terminal attack controller (current) drug therapy Z79.899
[2024-10-16 12:57] VITALS: BP 128/70; PULSE 78; O2SAT 95; BMI 41.8
--- OUTSIDE RECORDS SUMMARY | 2024-10-16 14:21 | XMS_ITS | Encounter Summary ---
Author Organization [employer] Address [address] [facility] [address] [place] [address] Care Team Providers Care Plant Packer Name Role Phone Lori Hernandez MD Primary Care Pro vider Reason for Visit * Reason Comments Plaquenil testing [id number] VF Encounter Details Date Type Department Care Team ([facility] st Contact Info) Description 10/15/2024 1:00 PM EDT Office Visit [facility] OPTOMETRY [address] [place] [address] Fernanda Randall, OD [address] [place] [address] Seronegative rheumatoid arthritis (CMS/HCC) (Primary Dx); Long-term use of Plaquenil Social History Tobacco Use Types Packs/Day Years [...] Care Team (Late st Contact Info) Description 11/11/2024 1:15 PM EDT Office Visit [facility] MEDICINE [address] [place] [address] Lori Hernandez MD [address] [place] [address] 04/21/2025 1:00 PM EST Office Visit [facility] OPTOMETRY [address] [place] [address] Prakash, Fernanda, OD [address] [place] [address] Pending Results Name Type Priority Associated Diagnoses Date /Time Automated Visual Field, Extended - OU - Both Eyes Ophthalmology Routine Seronegative rheumatoid arthritis ([facility]) Long-term use of Plaquenil 10/15/2024 2:03 PM EDT OCT, Retina - OU - Both Eyes Ophthalmology Routine Seronegative rheumatoid arthritis ([facility]) Long-term use of Plaquenil 10/15/2024 2:06 PM EDT documented as of this encounter Visit Diagnoses Diagnosis Seronegative rheumatoid arthritis ([facility])- Primary Rheumatoid arthritis Long-term use of Plaquenil documented in this encounter Additional Health Concerns Assessment Noted Time PHQ-9 Depression Total Score: 0 06/07/19 24 2:28 PM EST documented as of this encounter Care Teams Plant Packer Relationship Specialty Start Date End Date Lori Hernandez MD [address] [place] [id number] PCP - General Internal Medicine 10/15/22 documented as of this encounter
== END 2024-10-16 13:35 | disposition home or self-care (01) ==
LOC: HO.RHES 12:52
PROVIDERS: PCP Student in an Organized Health Care Education/Training Program; Visit Provider Internal Medicine Rheumatology
DX: M06.00 Rheumatoid arthritis without rheumatoid factor, unspecified site (principal); M25.551 Pain in right hip; M25.552 Pain in left hip; M25.561 Pain in right knee; M25.562 Pain in left knee; G89.29 Other chronic pain; Z79.899 Other long term (current) drug therapy
CPT/HCPCS: 99214

== ENCOUNTER 2024-10-30 10:00 | Outpatient (REF) | payer MEDICAID, SELFPAY ==
--- OUTSIDE RECORDS SUMMARY | 2024-10-30 11:29 | XMS_ITS | Encounter Summary ---
Author Organization [employer] Address [address] [place] [address] 7 [place] [address] Care Team Providers Care Battery Technician Name Role Phone Nohemi Queen HUANG Primary Care Provider [phone] Lori Hernandez MD Primary Care Pro vider Encounter Details Date Type Department Care Team ([facility] Contact Info) Description 05/12/2022 Orders Only [facility] MED & PEDS [address] [place], [place] [phone] Heather Hammond LPN Social History Tobacco Use [...] Upcoming Encounters Date Type Department Care Team ([facility] Contact Info) Description 11/11/2024 1:15 PM EDT Office Visit [facility] MEDICINE [address] [place], [place] [phone] Lori Hernandez MD [address] [place], [place] [phone] 04/21/2025 1:00 PM EST Office Visit [facility] OPTOMETRY [address] [place], [place] [phone] Fernanda Randall, OD [address] [place], [place] [phone] documented as of this encounter Visit Diagnoses Not on filedocumented in this encounter Care Teams Battery Technician Relationship Specialty Start Date End Date Nohemi Queen FNP PCP - General Family Medicine 03/03/21 10/14/22 Lori Hernandez MD [address] [place], [place] [phone] PCP - General Internal Medicine 10/15/22 documented as of this encounter
== END 2024-10-30 10:01 | disposition home or self-care (01) ==
LOC: HO.MAMMO 10:00
PROVIDERS: PCP Student in an Organized Health Care Education/Training Program; Visit Provider Student in an Organized Health Care Education/Training Program
DX: Z12.31 Encounter for screening mammogram for malignant neoplasm of breast (principal)
CPT/HCPCS: 77063; 77067

== ENCOUNTER → 2024-10-30 10:45 | Outpatient (BNV) | payer MEDICAID, SELFPAY | PROVIDERS: PCP Student in an Organized Health Care Education/Training Program; Visit Provider Internal Medicine | DX: Z12.31 Encounter for screening mammogram for malignant neoplasm of breast (principal) | CPT/HCPCS: 77063; 77067 ==

== ENCOUNTER 2024-12-17 09:58 | Outpatient (AMB) | payer MEDICAID, SELFPAY ==
--- NOTE | 2024-12-17 10:03 | MHC.OFFVIS ---
Vital Signs 12/17/24 10:08 Height 5 ft 1 in Weight 223 lb BMI 42.1 BP 129/63 Blood Pressure Location Lt brachial Position Sitting Pulse 65 Pulse Oximetry (%) 96 Oxygen Delivery Method Room Air Intake Visit Reasons: [place] screening Intake Note: Patient new consult for 1st pre Colonoscopy screening. Patient cc: hx of hemorrhoids. Denies any other GI issues. 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 She is referred by [facility]. PMX Morbid obesity -BMI GREATER THAN 40 Hypertension Seronegative rheumatoid arthritis GERD Chronic low back pain Carpal tunnel syndrome bilateral Fibromyalgia syndrome History of DVT History of clavicle fracture * SURGICAL HISTORY Tubal ligation * ALLERGIES Penicillin Asa Codeine * Room 8 Studio LABS: Laboratory Tests 07/16/24 10/16/24 13:20 13:44 WBC 6.7 Hgb 13.6 Hct 40.8 Plt Count 209 Estimated GFR > 60 AST 25 ALT 16 TODAY'S VISIT This is her first colonoscopy. She has a hx of roids but no other bowel problems, no upper GI problems. She denies any cardiac or respiratory problems. No prior anes or sed problems. NO ID problems. There is no known FHX of crc or polyps. [facility] Medical History (Updated 12/17/24 @ 10:07 by LLUVIA Key) Knee pain Hip pain Leukocytosis Other halfway (current) drug therapy Nipple discharge Suppurative hidradenitis Morbid obesity Seronegative rheumatoid arthritis Hx of hidradenitis suppurativa History of fracture of clavicle Back pain Fibromyalgia Arthritis Surgical History Hx of tubal ligation Family History Maternal Grandfather Diabetes Brother Diabetes Stroke Brother Diabetes Mother HTN (hypertension) Social History Alcohol intake: never Patient Tobacco Use Status: Former Tobacco user Female Reproductive History Menstrual Age of Menarche: 11 Review of Systems Const Denies fatigue, Denies fever(s), Denies night sweats, Denies poor appetite and Denies weight loss ENT Reports Normal hearing present, Denies dental pain, Denies dysphagia, Denies hearing loss, Denies mouth pain, Denies odynophagia, Denies throat swelling, Denies tongue swelling and Reports other (Dentition adequate) Card Reports no additional complaints Resp Reports no additional complaints GI Details: Denies abdominal pain, Denies melena, Denies bloating, Reports hematochezia, Denies constipation, Denies GI cramping, Denies dysphagia, Denies excessive flatus, Denies early satiety, Reports heartburn, Denies diarrhea, Denies nausea, Denies odynophagia, Denies vomiting and Denies hematemesis Musc Reports myalgias, Reports arthralgias and Reports joint swelling Skin/Breast Denies pruritus, Denies lesions, Denies rash and Denies jaundice Neuro Reports Normal hearing present and Denies Abnormal speech present Endo Denies fatigue Aller/Immun Denies throat swelling and Denies tongue swelling Physical Exam Vital Signs: Last Vital Signs Pulse 65 12/17/24 10:08 BP 129/63 12/17/24 10:08 Pulse Ox 96 12/17/24 10:08 Oxygen Delivery Method Room Air 12/17/24 10:08 BMI result Body Mass Index 42.1 Const General: cooperative, no acute distress, well developed and well groomed Nutritional Appearance: well nourished and obese morbidly obese Orientation/consciousness: oriented to person, oriented to place and oriented to time Limitations: No language barrier HEENT Head: Yes normocephalic and Yes atraumatic Eyes General: appearance normal, both eyes and all related structures Pupils: Equal, round and reactive pupils present Neck Neck: Yes normal visual inspection and Yes no lymphadenopathy Thyroid: Thyroid normal Resp Effort & Inspection: normal respiratory effort and able to speak in complete sentences Auscultation: clear to auscultation bilaterally Cardio Rate: regular rate Rhythm: regular rhythm Heart sounds: Normal, physiologic split S2 sound present Peripheral pulses: radial pulses present and posterior tibial pulses present GI Inspection: No distended, Yes Abdominal panniculus present and Yes obesity Palpation (GI): Soft to palpation, nontender, no guarding, not rigid and No hepatosplenomegaly present Percussion: Yes normal to percussion Auscultation: normal bowel sounds Rectal Exam - Female: deferred Abdomen image:  1. surgical scar Skin General skin exam: no rashes or lesions noted, turgor normal, skin not dry, no jaundice, No spider nevi and no striae Rashes: no rashes Nails: normal Neuro General: oriented to person, oriented to place and oriented to time Cranial nerves: Yes Equal, round and reactive pupils present and Yes Normal hearing present Speech: No Abnormal speech present Extrem General: Yes normal to inspection, No clubbing, No cyanosis and No edema Psych Appearance: grossly normal and well kempt Mental Status: mental status grossly normal Speech and movement: Normal speech and movement present Affect: normal affect Attitude: cooperative Thought process: Normal thought process present and not confabulating Thought content: Normal thought content present Insight: Good insight present (Psych) Judgement: Good judgement present (Psych) Assessment & Plan Assessment & Plan (1) Pre-op examination: Code(s): Z01.818 - Encounter for other preprocedural examination Category: Medical (2) Morbid obesity: Code(s): E66.01 - Morbid (severe) obesity due to excess calories Category: Medical (3) Right leg DVT: Code(s): I82.401 - Acute embolism and thrombosis of unspecified deep veins of right lower extremity Category: Medical Plan This is her first colonoscopy. She has a hx of roids but no other bowel problems, no upper GI problems. She denies any cardiac or respiratory problems. No prior anes or sed problems. NO ID problems. There is no known FHX of crc or polyps. Orders: Orders Colonoscopy - GI Use Only Today Z01.818 - Encounter for other preprocedural examination Medications: New peg 3350-electrolytes 236-22.74-6.74 -5.86 gram (Golytely) until fecal effluent is clear; do not exceed a total volume of 2,000 mL 240 mL PO Q10M 4,000 mL 0RF 1 day Z12.11 - Encounter for screening for malignant neoplasm of colon bisacodyl (Dulcolax (bisacodyl)) 10 mg (2 x 5 mg) PO BEDTIME 4 tabs 0RF 2 days Coding Level of Care Code New Pt Level 3 (74217) Diagnoses Pre-op examination Z01.818 Morbid obesity E66.01 Right leg DVT I82.401
[2024-12-17 10:08] VITALS: BP 129/63; PULSE 65; O2SAT 96; BMI 42.1
--- OUTSIDE RECORDS SUMMARY | 2024-12-17 10:52 | XMS_ITS | Encounter Summary ---
Author Organization [employer] Address [address] [place] [address] 7 [place] [address] Care Team Providers Care Groover And Striper Operator Name Role Phone Lori Hernandez MD Primary Care Pro vider Encounter Details Date Type Department Care Team (Latest Contact Info) Description 11/18/2024 Results Follow-Up [facility] MEDICINE [address] [place] [address] Lori Hernandez MD [address] [place] [address] BI Mammogram Screening Tomosynthesis Bilateral Social History Tobacco Use Types Packs/Day Years Used Date Smoking Tobacco: Never Smokeless Tobacco: Never Alcohol Use Standard Drinks/Week Comments Not Currently 0 (1 standard drink = 0.6 oz pur e alcohol) Depression Answer Date Recorded Patient Health Questionnaire-9 Score 0 11/11/2024 Patient Health Questionnaire-9 Score 0 11/11/2024 Last PHQ-9: Questionnaire Data Not on file 0 11/11/2024 Housing Stability Answer Date Recorded What is your housing situation today? I have erinn hudson 11/11/[address] you li ve. Do you have problems with any of the following? None of the above 11/11/2024 Food Insecurity Answer Date Recorded Within the [...] Date Recorded Patient Health Questionnaire-2 Score 0 11/11/2024 Internet Access Answer Date Recorded Internet Access Q1 Yes 01/05/2024 Internet Access Q2 Not on file 01/05/2024 Comments Unknown Sex and Gender Information Value Date Recorded Sex Assigned at Female 03/07/2022 10:18 AM EDT Legal Sex Female 10:18 AM EDT Gender Identity Female 03/07/2022 10:18 AM EDT Sexual Orientation Straight 03/07/2022 10 :18 AM EDT documented as of this encounter Miscellaneous Notes * Result Encounter Note - Lori Mccann MD - 11/18/2024 2:19 PM EDT Please inform pt of normal mammogram Thanks documented in this encounter Plan of Treatment Upcoming Encounters Date Type Department Care Team (Late st Contact Info) Description 01/10/2025 1:15 PM EDT Office Visit [facility] MEDICINE [address] [place] [address] Lori Hernandez MD [address] [place] [address] 04/21/2025 1:00 PM EST Office Visit [facility] OPTOMETRY [address] [place] [address] Prakash, Fernanda, OD [address] [place] [address] documented as of this encounter Visit Diagnoses Not on filedocumented in this encounter Additional Health Concerns Assessment Noted Time PHQ-9 Depression Total Score: 0 11/12/19 25 1:23 PM EDT documented as of this encounter Care Teams Groover And Striper Operator Relationship Specialty Start Date End Date Lori Hernandez MD [address] [place] [address] PCP - General Internal Medicine 10/15/22 documented as of this encounter
== END 2024-12-17 10:47 | disposition home or self-care (01) ==
LOC: HO.HGI 09:59
PROVIDERS: PCP Student in an Organized Health Care Education/Training Program; Visit Provider Nurse Practitioner
DX: Z01.818 Encounter for other preprocedural examination (principal); Z12.11 Encounter for screening for malignant neoplasm of colon; E66.01 Morbid (severe) obesity due to excess calories; I82.401 Acute embolism and thrombosis of unspecified deep veins of right lower extremity
CPT/HCPCS: 99203

== ENCOUNTER → 2024-12-17 09:58 | Outpatient (BNVA) | payer MEDICAID, SELFPAY | PROVIDERS: PCP Student in an Organized Health Care Education/Training Program; Visit Provider Nurse Practitioner | DX: Z01.818 Encounter for other preprocedural examination (principal); K21.9 Gastro-esophageal reflux disease without esophagitis; E66.01 Morbid (severe) obesity due to excess calories; I82.401 Acute embolism and thrombosis of unspecified deep veins of right lower extremity; Z68.41 Body mass index [BMI] 40.0-44.9, adult | CPT/HCPCS: 99212 ==

== ENCOUNTER 2025-01-07 11:14 | Outpatient (REF) | payer MEDICAID, SELFPAY ==
--- OUTSIDE RECORDS SUMMARY | 2025-01-07 12:48 | XMS_ITS | Encounter Summary ---
Author Organization [employer] Address [address] [place] [address] Care Team Providers Care Assistant Property Manager Name Role Phone Lori Hernandez MD Primary Care Pro vider Encounter Details Date Type Department Care Team (Late Contact Info) Description 02/10/2023 Abstract [facility] MEDICINE [address] [place] [address] [place] Social History Tobacco Use Types [...] Department Care Team (Late Contact Info) Description 01/10/2025 1:15 PM EDT Office Visit [facility] MEDICINE [address] [place], [place] [phone] Lori Hernandez MD [address] [place], [place] [phone] 04/21/2025 1:00 PM EST Office Visit [facility] OPTOMETRY [address] [place] [address] Fernanda Randall, OD [address] [place], [place] [phone] documented as of this encounter Procedures Procedure Name Priority Date/Time Associated Diagnosis Comments PAP/HPV Routine 05/20/2021 documented in this encounter Results * Pap Smear (05/20/2021) Pap Negative for intraephithelial lesion or malignancy Negative for intraephithelial lesion or malignancy, Other HPV Undetected Historical Provider HEALTH MAINTENANCE Final Result documented in this encounter Visit Diagnoses Not on filedocumented in this encounter Additional Health Concerns Assessment Noted Time PHQ-9 Depression Total Score: 0 10/15/19 23 11:02 AM EDT documented as of this encounter Care Teams Assistant Property Manager Relationship Specialty Start Date End Date Lori Hernandez MD [address] [place] [id number] PCP - General Internal Medicine 10/15/22 documented as of this encounter
--- OUTSIDE RECORDS SUMMARY | 2025-01-07 12:48 | XMS_ITS | Clinical Summary ---
Author Organization [employer] Address [address] [place] [address] 7[address] [place] [address] Care Team Providers Care Luggage Liner Name Role Phone Lori Hernandez MD Primary Care Pro vider Allergies Active Allergy Reactions Criticality Noted Date Comments Aspirin Hives 05/27/2022 Codeine 05/27/2022 Penicillins Hives 05/27/2022 Medications hydroxychloroquin e (Plaquenil) 200 MG tablet Take 1 tablet by mouth 2 times daily. 2 Active leflunomide (Arava) 20 MG tablet Take 20 mg by mouth in the morning. 2 Active sulfaSALAzine (Azulfidine) 500 MG tablet Take 500 mg by mouth 2 times daily. 4 Active ferrous sulfate 325 (65 Fe) MG tablet TAKE 1 TABLET BY MOUTH EVERY OTHER DAY 45 tablet 4 Active hydrOXYzine HCl (Atarax) 25 MG tabletIndications :Anxiety TAKE 1 TABLET (25 MG) BY MOUTH IF NEEDED IN THE MORNING, AT NOON, AND AT BEDTIME FOR ANXIETY. 90 tablet 3 5 Active losartan (Cozaar) 100 MG tabletIndications :Essential hypertension Take 1 tablet (100 mg) by mouth Once per day. 30 tablet 11 5 07/09/19 26 Active DULoxetine (Cymbalta) [address] capsule TAKE 1 CAPSULE (60 MG) BY MOUTH ONCE PER DAY. DO NOT CRUSH OR CHEW. 90 capsule 5 Active D3-1000 25 MCG (1000 UT) capsule TAKE 1 CAPSULE (25 MCG) BY MOUTH ONCE PER DAY. 90 capsule 5 Active Active Problems Problem Noted Date Diagnosed Date [...] Encounters Date Type Department Care Team Description 01/07/2025 Refill [facility] [address] [place] [address] Lori Hernandez MD 01/05/2025 Refill [facility] [address] [place] [address] Lori Hernandez MD 01/03/2025 Travel 11/18/[address] [address] Lori Hernandez MD Mammogram results 11/18/2024 Results Follow-Up [address] [address] Lori Hernandez MD BI Mammogram Screening Tomosynthesis Bilateral 11/11/2024 1:15 PM EDT Office Visit [address] [address] Lori Hernandez MD Health care maintenance (Primary Dx); Annual physical exam 11/11/2024 Travel 11/07/[address] [address] Lori Hernandez MD chart prep 2024 Patient Outreach [address] [address] Lori Hernandez MD Pre-visit Planning (Pre visit planning LVM ) 10/30/2024 Orders Only [facility] [address] [place], [place] [phone] Lori Hernandez MD 10/16/2024 Results Follow-Up [facility] [address] [place] [address] Lori Hernandez MD CBC auto differential, Creatinine, Serum, AST, Additional followed-up results: 3 10/15/2024 1:00 PM EDT Office Visit [facility] [address] [place] [address] PrakashFernanda sepulveda, OD Seronegative rheumatoid arthritis (CMS/HCC) (Primary Dx); Long-term use of Plaquenil 10/15/2024 Travel 10/11/2024 Refill [facility] [address] [place], [place] [phone] Bakari Strickland MD from Last 3 Months Immunizations Immunization Administration Dates Next Due Hep A, Adult 10/12/2016,08/27/2015 Hep B, adult 10/12/2016, 0,02/07/2007,2006 Influenza injectable quadriv alent IIV4 with preservative 02/01/2017,03/22/2016,02/16/2015 Influenza injectable quadriv alent preservative free 02/22/2022,03/05/2021,03/19/2020,2018 Influenza, IIV3, injectable 04/09/2014, 0 Influenza, Split (incl. sofi fied surface antigen) 01/24/2013 Influenza, seasonal, injecta ble, preservative free 08/06/2024 MMR 01/04/2022,12/05/2006 Moderna Covid-19 Vaccine 6+ Bivalent 05/11/2022 Pfizer Covid-19 Vaccine 12+ 08/06/2024 TD (adult), 2 Lf tetanus tox oid, [...] Not Answered Alcohol Use Standard Drinks/Week Comments Not Currently [...] Sign Reading Time Taken Comments Blood Pressure 120/74 11/11/2024 1:21 PM EDT Pulse 82 11/11/2024 1:21 PM EDT Temperature 36.1 C (97 F) 11/11/2024 1:21 PM EDT Respiratory Rate 20 11/11/2024 1:21 PM EDT Oxygen Saturation 98% 11/11/2024 1:21 PM EDT Inhaled Oxygen Concentration - - Weight 103 kg (226 lb 9.6 oz) 11/11/2024 1:21 PM EDT Height 154.9 cm (5' 1 ) 11/11/2024 1:21 PM EDT Body Mass Index 42.82 11/11/2024 1:21 PM EDT Plan of Treatment Upcoming Encounters Date Type Department Care Team (Late st Contact Info) Description 01/10/2025 1:15 PM EDT Office Visit [facility] [address] [place] [address] Lori Hernandez MD [address] [place] [address] 04/21/2025 1:00 PM EST Office Visit [facility] OPT[facility] [address] [place] [address] Fernanda Randall, OD [address] [place] [address] Health Maintenance Due Date Last Done Comments CT Colonography 1975 Colonoscopy 1975 Colorectal Cancer Screening 1975 FIT DNA/Cologuard 1975 FIT 1975 FOBT 1975 Sigmoidoscopy 1975 Family Planning (PISQ) 11/02/1991 Influenza Vaccine (#1) 2025 , 02/22/2022, 03/05/2021, Additional history exists Disability Screening 08/06/2025 08/06/2024 Alcohol/Substance Use Screening 11/11/2025 11/11/2024 Depression Screening 11/11/2025 11/11/2024, 11/12/19 25 SDOH Screening 11/11/2025 11/11/2024 Tobacco Screening 11/11/2025 11/11/2024 Cervical Cancer Screening 05/20/2026 HPV/Cotest 05/20/2026 05/20/2021, 05/08, 05/20/2021, Additional history exists Pap Smear 05/20/2026 05/20/2021, 03/26/2021 Mammogram 10/30/2026 10/30/2024, 04/01/2024, 09/04/2023, Additional history exists Zoster Vaccines (1 of 2) 2026 Lipid [...] Completed 10/18/2023 Hepatitis C Screening Completed 10/18/2023 COVID-19 Vaccine Completed 08/06/2024, 08/2022, 05/21/2021, Additional history exists HIB Vaccines Aged Out No longer eligi ble based on patient's age to complete this topic HPV Vaccines Aged Out No longer eligi ble based on patient's age to complete this topic IPV Vaccines Aged Out No longer eligi ble based on patient's age to complete this topic Meningococcal B Vaccine Aged Out No l onger eligible based on patient's age to complete this topic Meningococcal Vaccine Aged Out No rui clint eligible based on patient's age to complete this topic Pneumococcal Vaccine: Pediatrics (0 to 5 Years) and At-Risk Patients (6 to 49) Years Aged Out No longer eligible based on patient's age to complete this topic RSV under 20 months Aged Out No longe r eligible based on patient's age to complete this topic Rotavirus Vaccines Aged Out No longer eligible based on patient's age to complete this topic Procedures Procedure Name Priority Date/Time Associated Diagnosis Comments BI MAMMOGRAM SCREENING TOMOSYNTHESIS BILATERAL Routine 10/30/2024 10:55 AM EDT SED RATE BY MODIFIED WESTERGREN Routine 10/16/2024 1:44 PM EDT CBC WITH AUTO DIFFERENTIAL Routine 10/16/2024 1:44 PM EDT C-REACTIVE PROTEIN Routine 10/16/2024 1: 11 PM EDT ALT Routine 10/16/2024 1:11 PM EDT AST Routine 10/16/2024 1:11 PM EDT CREATININE, SERUM Routine 10/16/2024 1:1 1 PM EDT OCT, RETINA - OU - BOTH EYES Routine 10/15/2024 1:00 PM EDT Seronegative rheumatoid arthritis (CMS/HCC) Long-term use of Plaquenil AUTOMATED VISUAL FIELD, EXTENDED - OU - BOTH EYES Routine 10/15/2024 1:00 PM EDT Seronegative rheumatoid arthritis (CMS/HCC) Long-term use of Plaquenil HEPATITIS C AB W/REFL TO HCV RNA, QN, PCR Routine 10/18/2023 10:43 AM EDT Annual physical exam HIV 1/2 ANTIGEN/ANTIBODY, FOURTH GENERATION W/RFL Routine 10/18/2023 10:43 AM EDT Annual physical exam LIPID PANEL, STANDARD Routine 10/18/2023 10:43 AM EDT Annual physical exam HM PAP/HPV Routine 05/20/2021 from Last 3 Months or Most Recently Relevant to Health Maintenance Results * BI Mammogram Screening Tomosynthesis Bilateral (10/30/2024 10:55 AM EDT) Anatomical Region Laterality Modality Breast Bilateral Mammography 10/30/2024 10:5 5 AM EDT Narrative 11/16/2024 3:10 PM EDT [facility] [address] [place], [place] [address] Mammography Report Signed Patient: Lesley Gordon MR#: [id number] : 1975 Acct:[id number] Age/Sex: 48 / F ADM Date: 10/30/24 Loc: SO Attending Dr: Lori Mccann MD Ordering Physician: Lori Hernandez MD Re sults: 1Negative Date of Service: 10/30/24 Follow Up: 1 Year From Orig inal Mammogram Procedure(s): MM tomosynthesis screening BI Accession Number(s): [id number] cc: Lori Hernandez MD EXAMINATION: MM SCREENING DIGITAL BREAST TOMOSYNTHESIS, BILATERAL CLINICAL INFORMATION: Screening. Asymptomatic. COMPARISON: Mammography: Comparison is made with available priors TECHNIQUE: Digital breast mammography with tomosynthesis is performed in both the craniocaudal and mediolateral oblique views along with computer-aided detection (CAD). FINDINGS: There are scattered areas of fibroglandular density (ACR BI-RADS breast composition Category b). There are no significant masses, abnormal calcifications, or other abnormalities. MM/MM tomosynthesis screening BI IMPRESSION: No mammographic evidence of malignancy. ASSESSMENT: BI-RADS BI-RADS 1 - Negative RECOMMENDATION: Routine annual mammography screening. 1 year F/U This examination should not preclude the clinical evaluation of a suspicious palpable abnormality. This patient's information was entered into a reminder system with a target due date for their next mammogram. Electronically signed by: Jossie Gannon DO 11/16/2024 03:07 PM EDT Dictated By: Jossie Gannon DO Signed By: <Electronically signed by Jossie Gannon DO in OV> 11/16/24 1507 DD/ 1055 TD/TT: 10/30/24 1120 Mental Health Counselor: Procedure Note Donotuseinterpreter, Image - 11/16/2024 [facility] [address] [place] [address] Dr. [place], [place] [address] Mammography Report Signed Patient: Monica GordonNCRadha#: [id number] : 1975Acct:[id number] Age/Sex: 48 / FADM Date: 10/30/24 Loc: HO.MAMMO Attending Dr: Lori Mccann MD Ordering Physician: Lori Hernandez sults: 1Negative Date of Service: 10/30/24Follow Up: 1 Year From Orig ina Mammogram Procedure(s): MM tomosynthesis screening BI Accession Number(s): [id number] cc: Lori Hernandez MD EXAMINATION: MM SCREENING DIGITAL BREAST TOMOSYNTHESIS, BILATERAL CLINICAL INFORMATION: Screening. Asymptomatic. COMPARISON: Mammography: Comparison is made with available priors TECHNIQUE: Digital breast mammography with tomosynthesis is performed in both the craniocaudal and mediolateral oblique views along with computer-aided detection (CAD). FINDINGS: There are scattered areas of fibroglandular density (ACR BI-RADS breast composition Category b). There are no significant masses, abnormal calcifications, or other abnormalities. MM/MM tomosynthesis screening BI IMPRESSION: No mammographic evidence of malignancy. ASSESSMENT: BI-RADS BI-RADS 1 - Negative RECOMMENDATION: Routine annual mammography screening. 1 year F/U This examination should not preclude the clinical evaluation of a suspicious palpable abnormality. This patient's information was entered into a reminder system with a target due date for their next mammogram. Electronically signed by: Jossie Gannon DO 11/16/2024 03:07 PM EDT Dictated By: Jossie Gannon DO Signed By: <Electronically signed by Jossie Gannon DO in OV> 11/16/24 1507 DD/ 1055 TD/TT: 10/30/24 1120 Mental Health Counselor: us Lori Mccann MD IMG BI PROCEDURES Edited Result - Final * CBC auto differential (10/16/2024 1:44 PM EDT) White Blood Count 6.7 4.8 - 10.8 X10*3/uL [facility] Red Blood Count 4.42 4.20 - 5.50 X10*6/uL [facility] Hemoglobin 13.6 12.0 - 16.0 g/dl [facility] Hematocrit 40.8 37.0 - 47.0 % [facility] Mean Corpuscular Volume 92.3 80.0 - 98.0 fL [facility] Mean Corpuscular Hemoglobin 30.8 27.0 - 33.0 pg [facility] Mean Corpuscular HGB Conc 33.3 31.0 - 35.0 g/dl [facility] Red Cell Distribution Width 13.2 11.0 - 16.0 % [facility] Platelet Count 209 160 - 400 X10*3/uL [facility] Mean Platelet Volume 10.9 9.4 - 12.3 fL [facility] Neutrophils Percent Auto 61.3 45 - 73 % [facility] Imm Gran Pct Auto 0.3 0.0 - 0.4 % [facility] Lymphocytes Percent Auto 24.9 20 - 40 % [facility] Monocytes Percent Auto 10.3 2 - 11 % [facility] Eosinophils Percent Auto 2.2 0 - 4 % [facility] Basophils Percent Auto 1.0 0 - 2 % [facility] NRBC Pct Auto 0.0 0.0 - 0.2 /100WBC [facility] Neutrophils Absolute Auto 4.1 2.0 - 8.3 x10*3/uL [facility] Imm Gran Abs Auto 0.02 0.00 - 0.03 X10*3/uL [facility] Lymphocytes Absolute Auto 1.7 1.2 - 4.9 X10*3/uL [facility] Monocytes Absolute Auto 0.7 0.1 - 1.2 X10*3/uL [facility] Eosinophils Absolute Auto 0.2 0.0 - 0.4 X10*3/uL [facility] Basophils Absolute Auto 0.1 0.0 - 0.2 X10*3/uL [facility] NRBC Abs Auto 0.000 0.0 - 0.012 X10*3/uL [facility] 10/16/2024 1:44 PM EDT 10/16/2024 6:08 PM EDT us Generic External Data Provider LAB BLOOD ORDERAB LES Final Result Performing Organization Address [facility] [employer] de Phone Number [facility] [address] [place] [phone] * Sed Rate by Modified Fanergren (10/16/2024 1:44 PM EDT) Erythrocyte Sedimentation Rate 7 0 - 20 MM/HR [facility] Comment:Patients with polycy themia and many hemoglobin abnormalitiesmay have depressed sed rates whereas patients with anemiamay have elevated sed rates. 10/16/2024 1:44 PM EDT 10/16/2024 6:08 PM EDT Generic External Data Provider LAB BLOOD ORDERAB LES Final Result Performing Organization Address [facility] [employer] de Phone Number [facility] [address] [place] [phone] * Creatinine, Serum (10/16/2024 1:11 PM EDT) Creatinine, Serum 0.72 0.5 - 1.4 mg/dL [facility] Estimated Glomerular Filt Rate >60 [facility] Comment:Chronic Kidney Disea se: Estimated GFR < 60 mL/min/[id number] Kidney Disease: Estimated GFR < 15 mL/min/1.73m2 10/16/2024 1:11 PM EDT 10/16/2024 6:08 PM EDT Generic External Data Provider LAB BLOOD ORDERAB LES Final Result Performing Organization Address [facility] [employer] de Phone Number [facility] [address] [place] [address] [phone] * C-reactive Protein (10/16/2024 1:11 PM EDT) C Reactive Protein 0.18 < or = 0.50 mg/dL [facility] 10/16/2024 1:11 PM EDT 10/16/2024 6:08 PM EDT us Generic External Data Provider LAB BLOOD ORDERAB LES Final Result Performing Organization Address [facility] de Phone Number [facility] [address] [place] [phone] * ALT (10/16/2024 1:11 PM EDT) Alanine Aminotransferase 25 0 - 31 U/L [facility] 10/16/2024 1:11 PM EDT 10/16/2024 6:08 PM EDT Generic External Data Provider LAB BLOOD ORDERAB LES Final Result Performing Organization Address [facility] de Phone Number [facility] [address] [place] [phone] * (ABNORMAL) AST (10/16/2024 1:11 PM EDT) Aspartate Amino Transferase 32(H) 5 - 31 U/L [facility] 10/16/2024 1:11 PM EDT 10/16/2024 6:08 PM EDT Generic External Data Provider LAB BLOOD ORDERAB LES Final Result Performing Organization Address [facility] de Phone Number [facility] [address] [place] [phone] * OCT, Retina - OU - Both Eyes (10/15/2024 1:00 PM EDT) Narrative Fernanda Randall, OD - 10/28/2024 1:22 PM EDT Images from the original result were not included. OCT [facility] INTERPRE[employer] Optical Coherence Tomography Interpretation Report Measurements: OD OS Macula Thickness 213 microns 216 microns Test findings: OD: Normal foveal contour, no cystoid macular edema (CME), no retinal pigment epithelium (RPE) disruption, no subretinal fluid (SRF) OS: Normal foveal contour, no cystoid macular edema (CME), no retinal pigment epithelium (RPE) disruption, no subretinal fluid (SRF) Impression and Plan: No signs of bullseye maculopathy in either eye today. Will monitor with dilated eye exam in 6 months, sooner with any changes in vision. us Fernanda Randall OD OPHTH TOMOGRAPHY Final Result * Automated Visual Field, Extended - OU - Both Eyes (10/15/2024 1:00 PM EDT) Fernanda Rodriguez, OD - 10/28/2024 1:31 PM EDT VISUAL FIELD INTERPRETATION Visual Field Interpretation Test Details: 10-2 Standard / White/White / 4000 / III Dynamic Reliability Indices: False positive errors OD: 0/8 OS: 0/9 False negative errors OD: 0/8 OS: 0/9 Statistical Indices: MS [src]: OD: 30.7 OS: 29.9 MD [< 2.0 src]: OD: -0.4 OS: 0.5 sLV [< 2.5 src]: OD: 1.4 OS: 2.4 Impression: Reason for testing: Annual central visual field testing to monitor for signs of bullseye maculopathy due to Plaquenil use. Test Reliability: Reliable in both eyes. No false negatives/positives. Impression: Right eye (OD): Clear visual field Left eye (OS): Few scattered defects with no specific pattern noted. Progression: Right eye (OD): Stable to 08/2022 findings Left eye (OS): Few scattered defects today compared to clear field in 08/2022. Assessment and Plan: Stable findings right eye (OD). Some scattered defects today in the left eye but no definitive pattern to the defects noted. OCT showed unremarkable macular health. Low concern for any maculopathic changes in either eye today. Will monitor annually. us Fernanda Randall OD OPHTH VISUAL FIELD Final Resu lt * Hepatitis C Antibody with Reflex to HCV, RNA, Quantitative, Real-Time PCR (10/18/2023 10:43 AM EDT) Hepatitis C Antibody Nonreactive Nonreactive [facility] Comment:Antibodies to HCV no t detected; does not exclude early acuteHCV infection. Blood Venous blood specimen / Unknown 10/18/2023 10:43 AM EDT 10/18/2023 11:21 AM EDT us Lori Mccann MD LAB BLOOD ORDERAB LES Final Result Performing Organization Address [facility] de Phone Number [facility] [address] [place] [phone] * HIV-1/2 Antigen and Antibodies, Fourth Generation, with Reflexes (10/18/2023 10:43 AM EDT) HIV AB/AG Nonreactive Nonreactive [facility] Comment:HIV-1 p24 Ag and/or HIV-1/HIV-2 Ab not detected.A test result that is nonreactive does not exclude thepossibility of exposure to or infection with HIV-1 and/orHIV-2. Nonreactive results in this assay for individualswith prior exposure to HIV-1 and/or HIV-2 may be due toantigen and antibody levels that are below the limit ofdetection of this assay.The [employer] HIV Ag/Ab Combo assay result andsupplemental assay results should be interpreted inconjunction with the patient's clinical presentation,history and other laboratory results. If the results areinconsistent with clinical evidence, additional testing issuggested to confirm the result. Blood Venous blood specimen / Unknown 10/18/2023 10:43 AM EDT 10/18/2023 11:21 AM EDT us Lori Mccann MD LAB BLOOD ORDERAB LES Final Result Performing Organization Address [facility]/ZIP Co de Phone Number [facility] [address] [place] [phone] * Lipid Panel, Standard (10/18/2023 10:43 AM EDT) Triglycerides 69 <150 mg/dL [facility] Comment:Desirable Triglyceri de: less than 150 mg/dLBorderline High Triglyceride 150-199 mg/dLHigh Triglyceride: 200-499 mg/dLVery High Triglyceride: greater than or equal to 5OO mg/dL Cholesterol 140 <200 mg/dL [facility] Comment:Desirable Cholestero l: less than 200 mg/dLBorderline High Cholesterol: 200-239 mg/dLHigh Cholesterol: greater than 239 mg/dL LDL Cholesterol Calculated 81 <100 mg/dL [facility] Comment:Desirable LDL: less than 100 mg/dLNear Optimal/Above Optimal LDL: 110- 129 mg/dLBorderline High LDL: 130-159 mg/dLHigh LDL: 160-189 mg/dLVery High LDL: greater than or equal to 190 mg/dL HDL Cholesterol 46 >40 mg/dL [facility] Comment:Desirable HDL: great er than 40 mg/dL Note: This HDL assay may give artificially low results in patients with liver disease. Blood Venous blood specimen / Unknown 10/18/2023 10:43 AM EDT 10/18/2023 11:21 AM EDT Lori Mccann MD LAB BLOOD ORDERAB LES Final Result [facility] [address] [place] [phone] * Pap Smear (05/20/2021) Pap Negative for intraephithelial lesion or malignancy Negative for intraephithelial lesion or malignancy, Other HPV Undetected Historical Provider HEALTH MAINTENANCE Final Result from Last 3 Months or Most Recently Relevant to Health Maintenance [facility] [employer] Care Teams Luggage Liner Relationship Specialty Start Date End Date Lori Hernandez MD [address] [place] [phone] PCP - General Internal Medicine 10/15/22
--- OUTSIDE RECORDS SUMMARY | 2025-01-07 12:48 | XMS_ITS | Encounter Summary ---
Author Organization [employer] Address [address] [place] [address] 7 [place] [address] Care Team Providers Care Municipal Engineer Name Role Phone Lori Hernandez MD Primary Care Pro vider Encounter Details Date Type Department Care Team (Latest Contact Info) Description 11/18/2024 Results Follow-Up [facility] [address] [place] [address] Lori Hernandez MD [address] [place] [address] BI Mammogram Screening Tomosynthesis Bilateral Social History [...] Description 01/10/2025 1:15 PM EDT Office Visit [facility] [address] [place] [address] Lori Hernandez MD [address] [place] [address] 04/21/2025 1:00 PM EST Office Visit [facility] OPT[facility] [address] [place] [address] Prakash, Fernanda, OD [address] [place] [address] documented as of this encounter Visit Diagnoses Not on filedocumented in this encounter Additional Health Concerns Assessment Noted Time PHQ-9 Depression Total Score: 0 11/12/19 25 1:23 PM EDT documented as of this encounter Care Teams Municipal Engineer Relationship Specialty Start Date End Date Lori Hernandez MD [address] [place] [phone] PCP - General Internal Medicine 10/15/22 documented as of this encounter
--- OUTSIDE RECORDS SUMMARY | 2025-01-07 12:48 | XMS_ITS | Encounter Summary ---
Author Organization [employer] Address [address] [place] [address] [address] [place] [address] Care Team Providers Care Laser Set Up Operator Name Role Phone Lori Hernandez MD Primary Care Pro vider Reason for Visit * Reason Comments Med Refill Encounter Details Date Type Department Care Team ([facility] st Contact Info) Description 01/05/2025 Refill [facility] [address] [place], [place] [phone] Lori Hernandez MD [address] [place] [address] Social History Tobacco Use Types Packs/Day Years [...] Description 01/10/2025 1:15 PM EDT Office Visit [facility] [address] [place] [address] Lori Hernandez MD [address] [place] [phone] 04/21/2025 1:00 PM EST Office Visit [facility] [address] [place] [address] Prakash, Fernanda, OD [address] [place] [address] documented as of this encounter Visit Diagnoses Not on filedocumented in this encounter Additional Health Concerns Assessment Noted Time PHQ-9 Depression Total Score: 0 11/12/19 25 1:23 PM EDT documented as of this encounter Care Teams Laser Set Up Operator Relationship Specialty Start Date End Date Lori Hernandez MD [address] [place] [phone] PCP - General Internal Medicine 10/15/22 documented as of this encounter
--- OUTSIDE RECORDS SUMMARY | 2025-01-07 12:48 | XMS_ITS | Encounter Summary ---
Author Organization [employer] Address [address] [facility] 7t [place] [address] Care Team Providers Care Podiatry Assistant Name Role Phone Lori Hernandez MD Primary Care Pro vider Encounter Details Date Type Department Care Team (Latest Contact Info) Description 01/03/2025 Travel Social History Tobacco Use Types Packs/Day [...] Description 01/10/2025 1:15 PM EDT Office Visit [facility] [address] [place] [address] Lori Hernandez MD [address] [place] [address] 04/21/2025 1:00 PM EST Office Visit [facility] [address] [place] [address] Prakash, Fernanda, OD [address] [place] [address] documented as of this encounter Visit Diagnoses Not on filedocumented in this encounter Additional Health Concerns Assessment Noted Time PHQ-9 Depression Total Score: 0 11/12/19 25 1:23 PM EDT documented as of this encounter Care Teams Podiatry Assistant Relationship Specialty Start Date End Date Lori Hernandez MD [address] [place] [id number] PCP - General Internal Medicine 10/15/22 documented as of this encounter
--- OUTSIDE RECORDS SUMMARY | 2025-01-07 12:48 | XMS_ITS | Encounter Summary ---
Author Organization [employer] Address [address] [place] [address] 7 [place] [address] Care Team Providers Care Workers Compensation Legal Secretary Name Role Phone Lori Hernandez MD Primary Care Pro vider Reason for Visit * Reason Comments Med Refill Encounter Details Date Type Department Care Team ([facility] st Contact Info) Description 01/07/2025 Refill [facility] MED & PEDS [address] [place], [place] [phone] Lori Hernandez MD [address] [place] [address] Social History Tobacco Use Types Packs/Day Years [...] Description 01/10/2025 1:15 PM EDT Office Visit [facility] [address] [place] [address] Lori Hernandez MD [address] [place] [address] 04/21/2025 1:00 PM EST Office Visit [facility] [address] [place] [address] Prakash, Fernanda, OD [address] [place] [address] documented as of this encounter Visit Diagnoses Not on filedocumented in this encounter Additional Health Concerns Assessment Noted Time PHQ-9 Depression Total Score: 0 11/12/19 25 1:23 PM EDT documented as of this encounter Care Teams Workers Compensation Legal Secretary Relationship Specialty Start Date End Date Lori Hernandez MD [address] [place] [id number] PCP - General Internal Medicine 10/15/22 documented as of this encounter
--- OUTSIDE RECORDS SUMMARY | 2025-01-07 12:48 | XMS_ITS | Encounter Summary ---
Author Organization [employer] Address [address] [place] [address] 7 [place] [address] Care Team Providers Care Oncology Consultant Name Role Phone Nohemi Queen MARKETING PROGRAMS SPECIALIST Primary Care Provider Lori Doss MD Primary Care Pro vider Encounter Details Date Type Department Care Team (Late Contact Info) Description 05/12/2022 Orders Only [facility] MED & PEDS [address] [place], [place] [phone] Heather Hammond LPN Social History Tobacco Use [...] Description 01/10/2025 1:15 PM EDT Office Visit [facility] [address] [place], [place] [phone] Lori Hernandez MD [address] [place], [place] [phone] 04/21/2025 1:00 PM EST Office Visit [facility] [address] [place] [address] Fernanda Randall, OD [address] [place] [address] documented as of this encounter Visit Diagnoses Not on filedocumented in this encounter Care Teams Oncology Consultant Relationship Specialty Start Date End Date Nohemi Queen FNP PCP - General Family Medicine 03/03/21 10/14/22 Lori Hernandez MD [address] [place] [address] PCP - General Internal Medicine 10/15/22 documented as of this encounter
[2025-01-07 13:29] LABS: Hematocrit 39.0 % (37.0-47.0); Hemoglobin 13.1 g/dl (12.0-16.0); Mean Corpuscular HGB Conc 33.6 g/dl (31.0-35.0); Mean Corpuscular Hemoglobin 31.3 pg (27.0-33.0); Mean Corpuscular Volume 93.1 fL (80.0-98.0); NRBC Abs Auto 0.000 X10*3/uL (0.0-0.012); NRBC Pct Auto 0.0 /100WBC (0.0-0.2); Platelet Count 227 X10*3/uL (160-400); Red Blood Count 4.19 X10*6/uL (4.20-5.50); White Blood Count 7.0 X10*3/uL (4.8-10.8)
[2025-01-07 13:40] LABS: Alanine Aminotransferase 19 U/L (0-31); Albumin Level 4.2 g/dL (3.5-5.0); Alkaline Phosphatase 42 U/L (39-117); Anion Gap 13 (12-20); Aspartate Amino Transferase 27 U/L (5-31); Blood Urea Nitrogen 10 mg/dL (9-16); Calcium 9.0 mg/dL (8.4-10.2); Carbon Dioxide 26 mmol/L (22-29); Chloride 105 mmol/L (96-108); Cholesterol 171 mg/dL (<200); Estimated Glomerular Filt Rate > 60; HDL Cholesterol 52 mg/dL (>40); Iron 68 mcg/dL (30-160); Percent Iron Saturation 21 % (15-50); Potassium 4.1 mmol/L (3.3-5.1); Sodium 140 mmol/L (135-145); Total Iron Binding Capacity 331 mcg/dL (228-428); Total Protein 7.4 g/dL (6.5-8.0); Triglycerides 48 mg/dL (<150); Unsaturated Iron Binding 263 ug/dL
[2025-01-07 13:45] LABS: Ferritin 11 ng/mL (10-250)
[2025-01-07 13:47] LABS: Hemoglobin A1C 88.1838 umol/L; Total Hemoglobin (HGBA1C) 3396.9361 umol/L
[2025-01-07 16:34] LABS: CT PCR Urine NOT DETECTED (Not Detect.); NG PCR Urine NOT DETECTED (Not Detect.)
[2025-01-08 08:39] LABS: HBsAGNum1 0.42 S/CO (0.00-0.99); HIV Num 1 0.04 S/CO (0.00-0.99); Hepatitis B Surface Antigen Negative (Negative); ~HepC Num1 0.12 S/CO (0.00-0.79); ~Hepatitis C Antibody Nonreactive (Nonreactive)
[2025-01-08 08:44] LABS: Syphilis Screen Nonreactive (Nonreactive)
== END 2025-01-07 11:15 | disposition home or self-care (01) ==
LOC: HO.HHCL 11:14
PROVIDERS: PCP Student in an Organized Health Care Education/Training Program; Visit Provider Student in an Organized Health Care Education/Training Program
DX: Z00.00 Encounter for general adult medical examination without abnormal findings (principal)
CPT/HCPCS: 80053; 80061; 82306; 82728; 83036; 83540; 84443; 85027; 86780; 86803; 87340; 87389; 87491; 87591

== ENCOUNTER 2025-01-21 09:18 | Outpatient (AMB) | payer MEDICAID, SELFPAY ==
--- NOTE | 2025-01-21 09:21 | MHC.OFFVIS ---
Vital Signs 01/21/25 09:24 Height 5 ft 1 in Weight 231 lb 0.711 oz BMI 43.7 BP 120/70 Blood Pressure Location Lt brachial Position Sitting Pulse 73 Pulse Oximetry (%) 99 Oxygen Delivery Method Room Air Intake Visit Reasons: 3 Months Intake Note: Patient presents for RA follow up today. Accompanied by: Self / Same As Patient Allergies aspirin (ASPIRIN) Allergy (Intermediate, Verified 01/21/25 09:25) RASH codeine (CODEINE) Allergy (Intermediate, Verified 01/21/25 09:25) VOMITING, nausea and vomiting Penicillins (PENICILLINS) Allergy (Intermediate, Verified 01/21/25 09:25) RASH Medication List - Last Reconciled 01/21/25 by Marquez Dick MD cyclobenzaprine 10 mg PO BEDTIME duloxetine (Cymbalta) 60 mg PO DAILY hydroxychloroquine 400 mg (2 x 200 mg) PO DAILY hydroxyzine HCl 25 mg PO TID leflunomide 20 mg PO DAILY losartan 50 mg PO DAILY omeprazole 40 mg PO DAILY peg 3350-electrolytes 236-22.74-6.74 -5.86 gram (Golytely) 240 mL PO Q10M 1 day sulfasalazine 1 g (2 x 500 mg) PO BID HPI HPI 3 Months: Details: She had swelling in mouth. She had extraction of 4 tooth. She is in the process of getting partial dentures. No recet infections. MS 30 minutes. Feels well. Joint pain. [facility] Medical History Knee pain Hip pain Leukocytosis Other long term care administrator (current) drug therapy Nipple discharge Suppurative hidradenitis Morbid obesity Seronegative rheumatoid arthritis Hx of hidradenitis suppurativa History of fracture of clavicle Back pain Fibromyalgia Arthritis Surgical History Hx of tubal ligation Family History Maternal Grandfather Diabetes Brother Diabetes Stroke Brother Diabetes Mother HTN (hypertension) Social History Alcohol intake: never Patient Tobacco Use Status: Former Tobacco user Female Reproductive History Menstrual Age of Menarche: 11 Physical Exam Vital Signs: Last Vital Signs Pulse 73 01/21/25 09:24 BP 120/70 01/21/25 09:24 Pulse Ox 99 01/21/25 09:24 Oxygen Delivery Method Room Air 01/21/25 09:24 BMI result Body Mass Index 43.7 Const Other: General: Comfortable CVS: RRR Respiratory: clear to auscultation bilaterally. Good respiratory effort Skin: No lesions seen MSK: No tender joints. No synovitis. No tenderness to palpation of trochanteric bursae. No crepitus. Normal range of motion of upper extremities and lower extremities. Assessment & Plan Assessment & Plan (1) Seronegative rheumatoid arthritis: Comment: Inflammatory arthritis is controlled on current regimen. We discussed indication for PCP prophylaxis due to patient being on 3 immunosuppressive therapies. Rheumatology history: Seronegative. Diagnosed at age 34. Initially on monotherapy for methotrexate for a long time. She developed panic attacks with subcutaneous methotrexate. Leflunomide added 2021 to present. Hydroxychloroquine added 07/25/2021 to present. Code(s): M06.00 - Rheumatoid arthritis without rheumatoid factor, unspecified site Category: Medical Plan: Labs for disease and drug monitoring on high-risk medication up-to-date January 2025 Continue hydroxychloroquine 400 mg daily. VF 2022. She had visual field testing in October. She is scheduled for an appointment in April. I have asked ask her to contact communications electrician supervisor to ensure that she has OCT scheduled in April. Continue leflunomide 20 mg daily Continue sulfasalazine to 1000 mg twice a day Start Bactrim for PCP prophylaxis this patient is on 3 immunosuppressive therapies for maintenance Return to clinic in 3 months (2) Other skilled nursing (current) drug therapy: Code(s): Z79.899 - Other long term care administrator (current) drug therapy Category: Medical Plan: See above Plan . Medications: New sulfamethoxazole-trimethoprim 400-80 mg (Bactrim) PCP ppx 1 tab PO DAILY 90 tabs 4RF 90 days Changed From sulfasalazine give with food (meal/snack) 1 g (2 x 500 mg) PO BID 180 tabs 0RF To sulfasalazine give with food (meal/snack) 1 g (2 x 500 mg) PO BID 360 tabs 0RF 90 days Refilled leflunomide Dispense 90 day supply. 20 mg PO DAILY 90 tabs 0RF hydroxychloroquine Take 2 tablets daily. Dispense 90 day supply. 400 mg (2 x 200 mg) PO DAILY 180 tabs 1RF Discontinued prednisone Take 4 tablets daily for 3 days, 3 tablets daily for 3 days, 2 tablets daily for 3 days, 1 tablet daily for 3 days, then stop. Discontinued Reason: Doctor's Order 5 mg PO DIRECTED 30 tabs 0RF Coding Level of Care Code Est Pt Level 4 (20298) Complex EM visit Add On G2211 Diagnoses Seronegative rheumatoid arthritis M06.00 Other skilled nursing (current) drug therapy Z79.899
[2025-01-21 09:24] VITALS: BP 120/70; PULSE 73; O2SAT 99; BMI 43.7
--- OUTSIDE RECORDS SUMMARY | 2025-01-21 11:43 | XMS_ITS | Encounter Summary ---
Author Organization [employer] Address [address] [place] [address] 7 [place] [address] Care Team Providers Care Control Clerk Subassembly Name Role Phone Lori Hernandez MD Primary Care Pro vider Encounter Details Date Type Department Care Team (Latest Contact Info) Description 11/18/2024 Results Follow-Up [facility] [address] [place] [address] Lori Hernandez MD [address] [place] [address] BI Mammogram Screening Tomosynthesis Bilateral Social History [...] Care Team (Late st Contact Info) Description 04/21/2025 1:00 PM EST Office Visit [facility] [address] [place] [address] Prakash, Fernanda, OD [address] [place] [address] documented as of this encounter Visit Diagnoses Not on filedocumented in this encounter Additional Health Concerns Assessment Noted Time PHQ-9 Depression Total Score: 0 11/12/19 25 1:23 PM EDT documented as of this encounter Care Teams Control Clerk Subassembly Relationship Specialty Start Date End Date Lori Hernandez MD [address] [place] [address] PCP - General Internal Medicine 10/15/22 documented as of this encounter
--- OUTSIDE RECORDS SUMMARY | 2025-01-21 11:43 | XMS_ITS | Encounter Summary ---
Author Organization [employer] Address [address] [place] [address] 7 [place] [address] Care Team Providers Care General Lithographic Worker Name Role Phone Nohemi Queen HEALTH POLICY NURSE Primary Care Provider Lori Doss MD Primary Care Pro vider Encounter Details Date Type Department Care Team (Late Contact Info) Description 05/12/2022 Orders Only [facility] & [facility]EDS [address] [place], [place] [phone] Heather Hammond LPN Social History Tobacco Use [...] Department Care Team (Late Contact Info) Description 04/21/2025 1:00 PM EST Office Visit [facility] [address] [place], [place] [phone] Fernanda Randall, OD [address] [place] [address] documented as of this encounter Visit Diagnoses Not on filedocumented in this encounter Care Teams General Lithographic Worker Relationship Specialty Start Date End Date Nohemi Queen FNP PCP - General Family Medicine 03/03/21 10/14/22 Lori Hernandez MD [address] [place] [id number] PCP - General Internal Medicine 10/15/22 documented as of this encounter
--- OUTSIDE RECORDS SUMMARY | 2025-01-21 11:44 | XMS_ITS | Encounter Summary ---
Author Organization [employer] Address [address] [place] [address] 7 [place] [address] Care Team Providers Care Drywall Sprayer Name Role Phone Lori Hernandez MD Primary Care Pro vider Encounter Details Date Type Department Care Team (Late st Contact Info) Description 02/10/2023 Abstract [facility] [address] [place], [place] [phone] She [place] Social History Tobacco Use Types [...] Description 04/21/2025 1:00 PM EST Office Visit [facility] OPTOMETRY [address] [place], [place] [phone] Fernanda Randall, OD [address] [place], [place] [phone] documented as of this encounter Procedures Procedure [...] documented as of this encounter Care Teams Drywall Sprayer Relationship Specialty Start Date End Date Lori Hernandez MD [address] [place] [id number] PCP - General Internal Medicine 10/15/22 documented as of this encounter
--- OUTSIDE RECORDS SUMMARY | 2025-01-21 11:44 | XMS_ITS | Clinical Summary ---
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 04/23/20 22 Active leflunomide (Arava) 20 MG tablet Take 20 mg by mouth in the morning. 05/07/20 22 Active sulfaSALAzine (Azulfidine) 500 MG tablet Take 500 mg by mouth 2 times daily. 05/29/19 24 Active hydrOXYzine HCl (Atarax) 25 MG tabletIndication s:Anxiety TAKE 1 TABLET (25 MG) BY MOUTH IF NEEDED IN THE MORNING, AT NOON, AND AT BEDTIME FOR ANXIETY. 90 tablet 3 06/19/19 25 Active losartan (Cozaar) 100 MG tabletIndication s:Essential hypertension Take 1 tablet (100 mg) by mouth Once per day. 30 tablet 11 07/09/19 25 026 Active DULoxetine (Cymbalta) [address] capsule TAKE 1 CAPSULE (60 MG) BY MOUTH ONCE PER DAY. DO NOT CRUSH OR CHEW. 90 capsule 01/08/20 25 Active cholecalciferol (D3-1000) 25 MCG (1000 UT) capsule TAKE 1 CAPSULE BY MOUTH ONCE PER DAY. 90 capsule 01/08/20 25 Active ferrous sulfate 325 (65 Fe) MG tablet TAKE 1 TABLET BY MOUTH EVERY OTHER DAY 45 tablet 03/04/20 24 025 Discontinued(Ot her) DULoxetine (Cymbalta) [address] capsule TAKE 1 CAPSULE (60 MG) BY MOUTH ONCE PER DAY. DO NOT CRUSH OR CHEW. 90 capsule 10/05/19 025 Discontinued D3-1000 25 MCG (1000 UT) capsule TAKE 1 CAPSULE (25 MCG) BY MOUTH ONCE PER DAY. 90 capsule 10/12/19 025 Discontinued(Re order (will not trigger notification to Pharmacy)) Active Problems Problem Noted Date Diagnosed Date [...] Encounters Date Type Department Care Team Description 01/10/2025 1:15 PM EDT Office Visit [facility] MEDICINE [address] [place] [phone] Lori Hernandez MD Anemia, unspecified type (Primary Dx); Penicillin allergy; Essential hypertension; Morbid obesity ([facility]); Health care maintenance 01/10/2025 Travel 01/10/[address] [facility] MED[facility] [address] [place] [phone] Lori Hernandez MD 01/09/[address] [facility] MED[facility] [address] [place], [place] [phone] Lori Hernandez MD 01/07/[address] [facility] MED & PEDS [address] [place], [place] [phone] Lori Hernandez MD 01/05/2025 Refill [facility] [place] [address] Lori Hernandez MD 01/03/2025 Travel 11/18/2024 Telephone [facility] [place] [address] Lori Hernandez MD Mammogram results 11/18/2024 Results Follow-Up [address] [place] [address] Lori Hernandez MD BI Mammogram Screening Tomosynthesis Bilateral 11/11/2024 1:15 PM EDT Office Visit [facility] [place] [address] Lori Hernandez MD Health care maintenance (Primary Dx); Annual physical exam 11/11/2024 Travel 11/07/2024 Telephone [facility] [place] [address] Lori Hernandez MD chart prep 2024 Patient Outreach [facility] [place] [address] Lori Hernandez MD Pre-visit Planning (Pre visit planning LVM ) 10/30/2024 Orders Only [facility] [place] [address] Lori Hernandez MD from Last 3 Months Immunizations Immunization [...] Sign Reading Time Taken Comments Blood Pressure 120/80 01/10/2025 1:19 PM EDT Pulse 72 01/10/2025 1:19 PM EDT Temperature 36.6 C (97.9 F) 01/10/2025 1:19 PM EDT Respiratory Rate 20 01/10/2025 1:19 PM EDT Oxygen Saturation 98% 11/11/2024 1:21 PM EDT Inhaled Oxygen Concentration - - Weight 104 kg (228 lb 12.8 oz) 01/10/2025 1:19 P M EDT Height 154.9 cm (5' 1 ) 01/10/2025 1:19 PM EDT Body Mass Index 43.23 01/10/2025 1:19 PM EDT Plan of Treatment Upcoming Encounters Date Type Department Care Team (Late st Contact Info) Description 04/21/2025 1:00 PM EST Office Visit [facility] OPTOMETRY [address] [place] [address] Prakash, Fernanda, OD [address] [place] [address] Health Maintenance Due Date Last Done Comments CT Colonography 1975 Colonoscopy 1975 Colorectal Cancer Screening 1975 FIT DNA/Cologuard 1975 FIT 1975 FOBT 1975 Sigmoidoscopy 1975 Family Planning (PISQ) 11/02/1991 Influenza Vaccine (#1) 2025 , 02/22/2022, 03/05/2021, Additional history exists Disability Screening 08/06/2025 08/06/2024 Alcohol/Substance Use Screening 11/11/2025 11/11/2024 Depression Screening 11/11/2025 11/11/2024, 11/12/19 25 SDOH Screening 11/11/2025 11/11/2024 Tobacco Screening 01/10/2026 01/10/2025 Cervical Cancer Screening 05/20/2026 HPV/Cotest 05/20/2026 05/20/2021, 05/08, 05/20/2021, Additional history exists Pap Smear 05/20/2026 05/20/2021, 03/26/2021 Mammogram 10/30/2026 10/30/2024, 08/07, 09/04/2023, Additional history exists Zoster Vaccines (1 of 2) 2026 Lipid Panel 01/07/2030 01/07/2025, 10/06, 10/14/2022 DTaP/Tdap/Td Vaccines (3 - Td or Tdap) 01/05/2032 01/04/2022, 11/16/2009 RSV Patients and Patients Aged 60 years or older (1 - 1-dose 75+ series) 11/02/2051 Hepatitis A Vaccines Aged Out 10/12/2016, 08/27/19 16 No longer eligible based on patient's age to complete this topic Hepatitis B Vaccines Completed 10/12/2016, 11/16/2009, 02/07/2007, Additional history exists COVID-19 Vaccine Completed 08/06/2024, 08/2022, 05/21/2021, Additional history exists HIV Screening Completed 01/07/2025, 10/18/2023 Hepatitis C Screening Completed 01/07/2025, 024 HIB Vaccines Aged Out No longer eligi [...] Procedure Name Priority Date/Time Associated Diagnosis Comments CHLAMYDIA/TRICHOMONAS/ NEISSERIA GONORRHOEAE, PCR, URINE Routine 01/07/2025 11:33 AM EDT Health care maintenance FERRITIN Routine 01/07/2025 11:29 AM EDT Annual physical exam IRON AND TOTAL IRON BINDING CAPACITY Routine 01/07/2025 11:29 AM EDT Annual physical exam VITAMIN D,25-OH,TOTAL,IA Routine 01/07/2025 11:29 AM EDT Annual physical exam TSH W/REFLEX TO FT4 Routine 01/07/2025 1 1:29 AM EDT Annual physical exam SYPHILIS SCREEN Routine 01/07/2025 11:29 AM EDT Annual physical exam LIPID PANEL, STANDARD Routine 01/07/2025 11:29 AM EDT Annual physical exam HIV 1/2 ANTIGEN/ANTIBODY, FOURTH GENERATION W/RFL Routine 01/07/2025 11:29 AM EDT Annual physical exam HEPATITIS C AB W/REFL TO HCV RNA, QN, PCR Routine 01/07/2025 11:29 AM EDT Annual physical exam HEPATITIS B SURFACE ANTIGEN, EIA Routine 01/07/2025 11:29 AM EDT Annual physical exam HEMOGLOBIN A1C Routine 01/07/2025 11:29 AM EDT Annual physical exam COMPREHENSIVE METABOLIC PANEL Routine 01/07/2025 11:29 AM EDT Annual physical exam CBC Routine 01/07/2025 11:29 AM EDT Annual physical exam BI MAMMOGRAM SCREENING TOMOSYNTHESIS BILATERAL Routine 10/30/2024 10:55 AM EDT HM PAP/HPV Routine 05/20/2021 from Last 3 Months or Most Recently Relevant to Health Maintenance Results * Chlamydia/N. Gonorrhoeae, PCR, Urine (01/07/2025 11:33 AM EDT) CT PCR, Urine NOT DETECTED Not Detect. [facility] Comment:A not detected test result does not exclude the possibilityof infection because test results can be affected byimproper specimen collection, concurrent antibiotic therapy,or the number of organisms in the specimen which may bebelow the sensitivity of the test. As with many diagnostictests, results from the Xpert CT/NG assay should beinterpreted in conjunction with other laboratory andclinical data available to the clinician.The Xpert CT/NG assay should not be used for the evaluationof suspected sexual abuse or for other medico-legalindications. Additional testing is recommended in anycircumstance when false positive or false negative resultscould lead to adverse medical, social or psychologicalconsequences. NG PCR, Urine NOT DETECTED Not Detect. [facility] Comment:A not detected test result does not exclude the possibilityof infection because test results can be affected byimproper specimen collection, concurrent antibiotic therapy,or the number of organisms in the specimen which may bebelow the sensitivity of the test. As with many diagnostictests, results from the Xpert CT/NG assay should beinterpreted in conjunction with other laboratory andclinical data available to the clinician.The Xpert CT/NG assay should not be used for the evaluationof suspected sexual abuse or for other medico-legalindications. Additional testing is recommended in anycircumstance when false positive or false negative resultscould lead to adverse medical, social or psychologicalconsequences. Urine (Urine, Random) 01/07/2025 11:33 AM EDT 01/07/2025 12:48 PM EDT us Lori Mccann MD LAB URINE ORDERAB LES Final Result [facility] [address] [place] [phone] * Syphilis Screen (01/07/2025 11:29 AM EDT) Syphilis Screen Nonreactive Nonreactive [facility] Blood 01/07/2025 11:2 9 AM EDT 01/07/2025 12:47 PM EDT Lori Mccann MD LAB BLOOD ORDERAB LES Final Result Performing Organization Address [place]/[facility]/ZIP Co de Phone Number [facility] [address] [place] [phone] [phone] * Vitamin D, 25-Hydroxy, Total, Immunoassay (01/07/2025 11:29 AM EDT) Vitamin D 25-OH Total 37.3 >30 ng/mL [facility] Comment: Health Based Reference Values*< 20 ng/mL Kdbtblnis66-80 ng/mL Insufficient> 30 ng/mL Sufficient*Malina BROWN. N Engl J Med. 2007;357:266-280There is no well-established upper level of normal vitamin Dlevels. Some laboratories use 50 ng/mL as an upper limit ofnormal. However, toxicity is patient-dependent and may occurat any level. Careful correlation with the patient'spresentation is necessary and, if there is concern forvitamin D toxicity, treatment should be consideredirrespective of the serum level.Care must be taken in interpreting Vitamin D results fromdifferent laboratories and methodologies. Published datademonstrated that results from patients undergoinghemodialysis may show a negative bias when tested withvarious automated 25-OH vitamin D assays when compared toLC-MS/MS.When testing samples from patients whose predominant form ofVitamin D is Vitamin D2, such as patients receiving VitaminD2 supplementation, results that are subtherapeutic shouldbe confirmed with another method such as LC-MS/MS. Blood Venous blood specimen / Unknown 01/07/2025 11:29 AM EDT 01/07/2025 12:47 PM EDT Lori Mccann MD LAB BLOOD ORDERAB LES Final Result Performing Organization Address [place]/ZIP Co de Phone Number [facility] [address] [place] [address] [phone] * TSH with Reflex to Free T4 (01/07/2025 11:29 AM EDT) TSH reflex Free T4 1.68 0.32 - 4.0 uIU/mL [facility] Blood 01/07/2025 11:2 9 AM EDT 01/07/2025 12:47 PM EDT Lori Mccann MD LAB BLOOD ORDERAB LES Final Result Performing Organization Address [facility]/ZIP Co de Phone Number [facility] [address] [place] [phone] * Hepatitis C Antibody with Reflex to HCV, RNA, Quantitative, Real-Time PCR (01/07/2025 11:29 AM EDT) Hepatitis C Antibody Nonreactive Nonreactive [facility] Comment:Antibodies to HCV no t detected; does not exclude early acuteHCV infection. Blood Venous blood specimen / Unknown 01/07/2025 11:29 AM EDT 01/07/2025 12:47 PM EDT Lori Mccann MD LAB BLOOD ORDERAB LES Final Result Performing Organization Address [facility] Co de Phone Number [facility] [address] [place] [phone] * Iron And Total Iron Binding Capacity (01/07/2025 11:29 AM EDT) Iron 68 30 - 160 mcg/dL [facility] Total Iron Binding Capacity 331 228 - 428 mcg/dL [facility] Percent Iron Saturation 21 15 - 50 % [facility] Unsaturated Iron Binding 263 ug/dL [facility] Blood Venous blood specimen / Unknown 01/07/2025 11:29 AM EDT 01/07/2025 12:47 PM EDT Lori Mccann MD LAB BLOOD ORDERAB LES Final Result Performing Organization Address [facility]/ZIP Co de Phone Number [facility] [address] [place] [phone] * Hepatitis B surface antigen, EIA (01/07/2025 11:29 AM EDT) Pathologist [facility] Hepatitis B Surface Ag Negative Negative [facility] Blood Venous blood specimen / Unknown 01/07/2025 11:29 AM EDT 01/07/2025 12:47 PM EDT us Lori Mccann MD LAB BLOOD ORDERAB LES Final Result Performing Organization Address [facility] de Phone Number [facility] [address] [place] [phone] * HIV-1/2 Antigen and Antibodies, Fourth Generation, with Reflexes (01/07/2025 11:29 AM EDT) [facility] HIV AB/AG Nonreactive Nonreactive [facility] Comment:HIV-1 p24 Ag and/or HIV-1/HIV-2 Ab not detected.A test result that is nonreactive does not exclude thepossibility of exposure to or infection with HIV-1 and/orHIV-2. Nonreactive results in this assay for individualswith prior exposure to HIV-1 and/or HIV-2 may be due toantigen and antibody levels that are below the limit ofdetection of this assay.The [employer] HIV Ag/Ab Combo assay result andsupplemental assay results should be interpreted inconjunction with the patient's clinical presentation,history and other laboratory results. If the results areinconsistent with clinical evidence, additional testing issuggested to confirm the result. Blood Venous blood specimen / Unknown 01/07/2025 11:29 AM EDT 01/07/2025 12:47 PM EDT us Lori Mccann MD LAB BLOOD ORDERAB LES Final Result Performing Organization Address [place] Co de Phone Number [facility] [address] [place] [address] [place] [phone] * (ABNORMAL) CBC (01/07/2025 11:29 AM EDT) White Blood Count 7.0 4.8 - 10.8 X10*3/uL [facility] Red Blood Count 4.19(L) 4.20 - 5.50 X10*6/uL [facility] Hemoglobin 13.1 12.0 - 16.0 g/dl [facility] Hematocrit 39.0 37.0 - 47.0 % [facility] Mean Corpuscular Volume 93.1 80.0 - 98.0 fL [facility] Mean Corpuscular Hemoglobin 31.3 27.0 - 33.0 pg [facility] Mean Corpuscular HGB Conc 33.6 31.0 - 35.0 g/dl [facility] Red Cell Distribution Width 13.5 11.0 - 16.0 % [facility] Platelet Count 227 160 - 400 X10*3/uL [facility] Mean Platelet Volume 10.3 9.4 - 12.3 fL [facility] NRBC Pct Auto 0.0 0.0 - 0.2 /100WBC [facility] NRBC Abs Auto 0.000 0.0 - 0.012 X10*3/uL [facility] Blood Venous blood specimen / Unknown 01/07/2025 11:29 AM EDT 01/07/2025 1:17 PM EDT us Lori Mccann MD LAB BLOOD ORDERAB LES Final Result [facility] [address] [place] [phone] * Hemoglobin A1c (01/07/2025 11:29 AM EDT) Hemoglobin A1c 4.5 <6.0 % [facility] Comment:Hemoglobin A1C Refer ence Range Adults: 4.8 - 6.0 % Non diabetic: < 6.0 % Goal: < 7.0 %Additional Action Suggested: > 8.0 %Note: Hemoglobin A1c results are invalid for patients with abnormal amounts of HbF. Blood transfusions may impact the HbA1c concentration in the patient sample. Estimated Average Glucose 82 mg/dL [facility] Comment:eAG = Estimated ave rage glucose which is %A1C expressed asaverage glucose, using the formula of the Z3J-GqnkhuaStjrvbk Glucose study (ADAG), Diabetes Care, Vol.31,#8,Dec. 2007 Blood Venous blood specimen / Unknown 01/07/2025 11:29 AM EDT 01/07/2025 1:17 PM EDT us Lori Mccann MD LAB BLOOD ORDERAB LES Final Result Performing Organization Address City/[facility]/ZIP Co de Phone Number [facility] [address] [place] [phone] * Ferritin (01/07/2025 11:29 AM EDT) Ferritin 11 10 - 250 ng/mL [facility] Blood Venous blood specimen / Unknown 01/07/2025 11:29 AM EDT 01/07/2025 12:47 PM EDT us Lori Mccann MD LAB BLOOD ORDERAB LES Final Result Performing Organization Address City/[facility]/ZIP Co de Phone Number [facility] [address] [place] [phone] * (ABNORMAL) Lipid Panel, Standard (01/07/2025 11:29 AM EDT) Triglycerides 48 <150 mg/dL [facility] Comment:Desirable Triglyceri de: less than 150 mg/dLBorderline High Triglyceride 150-199 mg/dLHigh Triglyceride: 200-499 mg/dLVery High Triglyceride: greater than or equal to 5OO mg/dL Cholesterol 171 <200 mg/dL [facility] Comment:Desirable Cholestero l: less than 200 mg/dLBorderline High Cholesterol: 200-239 mg/dLHigh Cholesterol: greater than 239 mg/dL LDL Cholesterol Calculated 110(H) <100 mg/dL [facility] Comment:Desirable LDL: less than 100 mg/dLNear Optimal/Above Optimal LDL: 110- 129 mg/dLBorderline High LDL: 130-159 mg/dLHigh LDL: 160-189 mg/dLVery High LDL: greater than or equal to 190 mg/dL HDL Cholesterol 52 >40 mg/dL [facility] Comment:Desirable HDL: great er than 40 mg/dL Note: This HDL assay may give artificially low results in patients with liver disease. Blood Venous blood specimen / Unknown 01/07/2025 11:29 AM EDT 01/07/2025 12:47 PM EDT us Lori Mccann MD LAB BLOOD ORDERAB LES Final Result [facility] [address] [place] [phone] * Comprehensive Metabolic Panel (01/07/2025 11:29 AM EDT) Sodium 140 135 - 145 mmol/L [facility] Potassium 4.1 3.3 - 5.1 mmol/L [facility] Chloride 105 96 - 108 mmol/L [facility] Carbon Dioxide 26 22 - 29 mmol/L [facility] Anion Gap 13 12 - 20 [facility] Urea Nitrogen (BUN) 10 9 - 16 mg/dL [facility] Creatinine, Serum 0.73 0.5 - 1.4 mg/dL [facility] Estimated Glomerular Filt Rate >60 [facility] Comment:Chronic Kidney Disea se: Estimated GFR < 60 mL/min/[id number] Kidney Disease: Estimated GFR < 15 mL/min/1.73m2 Glucose 70 60 - 115 mg/dL [facility] Calcium 9.0 8.4 - 10.2 mg/dL [facility] Bilirubin, Total 0.3 0.0 - 1.0 mg/dL [facility] Aspartate Amino Transferase 27 5 - 31 U/L [facility] Alanine Aminotransferase 19 0 - 31 U/L [facility] Total Protein 7.4 6.5 - 8.0 g/dL [facility] Albumin Level 4.2 3.5 - 5.0 g/dL [facility] Alkaline Phosphatase 42 39 - 117 U/L [facility] Blood Venous blood specimen / Unknown 01/07/2025 11:29 AM EDT 01/07/2025 12:47 PM EDT us Lori Mccann MD LAB BLOOD ORDERAB LES Final Result [facility] [address] [place] [phone] * BI Mammogram Screening Tomosynthesis Bilateral (10/30/2024 10:55 AM EDT) Anatomical Region Laterality Modality Breast Bilateral Mammography 10/30/2024 10:5 5 AM EDT Narrative 11/16/2024 3:10 PM EDT [address] [place] [address] Mammography Report Signed Patient: Lesley Gordon MR#: [id number] : 1975 Acct:[id number] Age/Sex: 48 / F ADM Date: 10/30/24 Loc: HO.MAMMO Attending Dr: Lori Mccann MD Ordering Physician: Lori Hernandez MD Re sults: 1Negative Date of Service: 10/30/24 Follow Up: 1 Year From [facility] ina Mammogram Procedure(s): MM tomosynthesis screening BI Accession Number(s): [id number] cc: Lori Hernandez MD EXAMINATION: MM SCREENING [...] Jossie Gannon DO 11/16/2024 03:07 PM EDT RP Dictated By: Jossie Gannon DO Signed By: <Electronically signed by Jossie Gannon DO in OV> 11/16/24 1507 DD/ 1055 TD/TT: 10/30/24 1120 Massage Therapist: Procedure Note Donotuseinterpreter, Image - 11/16/2024 [facility] [address] [place] [address] Mammography Report Signed Patient: Noelle Gordon#: [id number] : 1975Acct:[id number] Age/Sex: 48 / FADM Date: 10/30/24 Loc: HO.MAMMO Attending Dr: Lori Mccann MD Ordering Physician: Lori Hernandez sults: 1Negative Date of Service: 10/30/24Follow Up: 1 Year From Orig ina Mammogram Procedure(s): MM tomosynthesis screening BI Accession Number(s): [id number] cc: Lori Hernandez MD EXAMINATION: MM SCREENING [...] Gannon DO Signed By: <Electronically signed by Josise Gannon DO in OV> 11/16/24 1507 DD/ 1055 TD/TT: 10/30/24 1120 Massage Therapist: Lori Mccann MD IMG BI PROCEDURES Edited Result - Final * Hm Pap Smear (05/20/2021) Pap Negative for intraephithelial lesion or malignancy Negative for intraephithelial lesion or malignancy, Other HPV Undetected Historical Provider HEALTH MAINTENANCE Final Result from Last 3 Months or Most Recently Relevant to Health Maintenance Insurance [address] [place] [id number] C3 Care Teams Hat And Cap Sewer Relationship Specialty Start Date End Date Lori Hernandez MD [address] [place] [phone] PCP - General Internal Medicine 10/15/22
== END 2025-01-21 09:52 | disposition home or self-care (01) ==
LOC: HO.RHES 09:19
PROVIDERS: PCP Student in an Organized Health Care Education/Training Program; Visit Provider Internal Medicine Rheumatology
DX: M06.00 Rheumatoid arthritis without rheumatoid factor, unspecified site (principal); Z79.899 Other long term (current) drug therapy
CPT/HCPCS: 99214

== ENCOUNTER → 2025-01-21 09:18 | Outpatient (BNVA) | payer MEDICAID, SELFPAY | PROVIDERS: PCP Student in an Organized Health Care Education/Training Program; Visit Provider Internal Medicine Rheumatology | DX: M06.09 Rheumatoid arthritis without rheumatoid factor, multiple sites (principal); Z79.899 Other long term (current) drug therapy | CPT/HCPCS: 99212 ==

== ENCOUNTER 2025-04-23 09:16 | Outpatient (REF) | payer MEDICAID, SELFPAY ==
--- OUTSIDE RECORDS SUMMARY | 2025-04-21 13:00 | XMS_ITS | Encounter Summary ---
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 I have erinn tristan 11/11/[address] you li [...] Care Team (Late st Contact Info) Description 05/15/2025 1:15 PM EST Office Visit [facility] [address] [place] [address] Lori Hernandez MD [address] [place] [address] 10/21/2025 1:00 PM EDT Office Visit [facility] [address] [place] [address] Prakash, Fernanda, OD [address] [place] [address] Pending Results Name Type Priority Associated Diagnoses Date /Time OCT, Retina - OU - Both Eyes Ophthalmology Routine Seronegative rheumatoid arthritis ([facility]) ([facility]) Long-term use of Plaquenil 04/21/2025 3:19 PM EST documented as of this encounter Visit Diagnoses Diagnosis Seronegative rheumatoid arthritis ([facility]) ([facility])- Primary Rheumatoid arthritis Long-term use of Plaquenil White without pressure of peripheral retina of both eyes Other retinal disorders Presbyopia of both eyes documented in this encounter Additional Health Concerns Assessment Noted Time PHQ-9 Depression Total Score: 0 11/12/19 25 1:23 PM EDT documented as of this encounter Care Teams Wad Printing Machine Operator Relationship Specialty Start Date End Date Lori Hernandez MD [address] [place] [phone] PCP - General Internal Medicine 10/15/22 documented as of this encounter
--- OUTSIDE RECORDS SUMMARY | 2025-04-23 12:03 | XMS_ITS | Encounter Summary ---
Author Organization [employer] Address [address] [facility] [address] [place] [address] Care Team Providers Care Bridge Worker Name Role Phone Lori Hernandez MD Primary Care Pro vider Encounter Details Date Type Department Care Team (Latest Contact Info) Description 04/20/2025 Travel Social History Tobacco Use Types Packs/Day [...] housing situation today? I have erinnrebecca hudson 11/11/[address] you [...] Description 05/15/2025 1:15 PM EST Office Visit [facility] [address] [place] [address] Lori Hernandez MD [address] [place] [phone] 10/21/2025 1:00 PM EDT Office Visit [facility] OPT[facility] [address] [place] [address] Prakash, Fernanda, OD [address] [place] [address] documented as of this encounter Visit Diagnoses Not on filedocumented in this encounter Additional Health Concerns Assessment Noted Time PHQ-9 Depression Total Score: 0 11/12/19 25 1:23 PM EDT documented as of this encounter Care Teams Bridge Worker Relationship Specialty Start Date End Date Lori Hernandez MD [address] [place] [phone] PCP - General Internal Medicine 10/15/22 documented as of this encounter
--- OUTSIDE RECORDS SUMMARY | 2025-04-23 12:03 | XMS_ITS | Encounter Summary ---
Author Organization [employer] Address [address] [place] [address] Care Team Providers Care Automotive Mechanical Engineer Name Role Phone Nohemi Queen [facility] Primary Care Provider Lori Doss MD Primary Care Pro vider Encounter Details Date Type Department Care Team (Late Contact Info) Description 05/12/2022 Orders Only [facility] [address] [place], [place] [phone] Heather Hammond LPN Social History Tobacco Use [...] Upcoming Encounters Date Type Department Care Team ([facility] Contact Info) Description 05/15/2025 1:15 PM EST Office Visit [facility] [address] [place], [place] [phone] Lori Hernandez MD [address] [place] [phone] 10/21/2025 1:00 PM EDT Office Visit [facility] OPT[facility] [address] [place], [place] [phone] Fernanda Randall, OD [address] [place], [place] [phone] documented as of this encounter Visit Diagnoses Not on filedocumented in this encounter Care Teams Automotive Mechanical Engineer Relationship Specialty Start Date End Date Nohemi Queen FNP PCP - General Family Medicine 03/03/21 10/14/22 Lori Hernandez MD [address] [place], [place] [phone] PCP - General Internal Medicine 10/15/22 documented as of this encounter
--- OUTSIDE RECORDS SUMMARY | 2025-04-23 12:03 | XMS_ITS | Encounter Summary ---
Author Organization [employer] Address [address] [facility] [address] [place] [address] Care Team Providers Care Grainer Machine Name Role Phone Lori Hernandez MD Primary Care Pro vider Encounter Details Date Type Department Care Team (Latest Contact Info) Description 04/21/2025 Travel Social History Tobacco Use Types Packs/Day [...] Description 05/15/2025 1:15 PM EST Office Visit [facility] [address] [place] [address] Lori Hernandez MD [address] [place] [address] 10/21/2025 1:00 PM EDT Office Visit [facility] OPTOMETRY [address] [place] [address] Prakash, Fernanda, OD [address] [place] [address] documented as of this encounter Visit Diagnoses Not on filedocumented in this encounter Additional Health Concerns Assessment Noted Time PHQ-9 Depression Total Score: 0 11/12/19 25 1:23 PM EDT documented as of this encounter Care Teams Grainer Machine Relationship Specialty Start Date End Date Lori Hernandez MD [address] [place] [phone] PCP - General Internal Medicine 10/15/22 documented as of this encounter
--- OUTSIDE RECORDS SUMMARY | 2025-04-23 12:04 | XMS_ITS | Clinical Summary ---
Author Organization [employer] Address [address] [place] [address] [address] [place] [address] Care Team Providers Care Quality Intern Name Role Phone Lori Hernandez MD Primary [...] 30 tablet 11 07/09/19 25 026 Active D3-1000 25 MCG (1000 UT) capsule TAKE 1 CAPSULE BY MOUTH EVERY DAY 90 capsule 04/10/20 25 Active DULoxetine (Cymbalta) [address] capsule TAKE 1 CAPSULE (60 MG) BY MOUTH ONCE PER DAY. DO NOT CRUSH OR CHEW. 90 capsule 04/10/20 25 Active DULoxetine (Cymbalta) [address] capsule TAKE 1 CAPSULE (60 MG) BY MOUTH ONCE PER DAY. DO NOT CRUSH OR CHEW. 90 capsule 01/08/20 25 025 Discontinued cholecalciferol (D3-1000) 25 MCG (1000 UT) capsule TAKE 1 CAPSULE BY MOUTH ONCE PER DAY. 90 capsule 01/08/20 25 025 Discontinued Active Problems Problem Noted Date Diagnosed Date History of anemia 01/03/2024 Chronic bilateral low back pain with bilateral s ciatica 10/15/2022 Health care maintenance 10/15/2022 Gastroesophageal reflux disease without esophagi tis 05/27/2022 Essential hypertension 05/27/2022 Tendinitis of left rotator cuff 10/19/2021 Acquired trigger finger of right middle finger 0 10/19/2021 Seronegative rheumatoid arthritis (CMS/HCC) 02/06 Overview (02/08/2023): 02/23/22: Arthritis treatment center appt. Continue Leflunomide 20 mg daily Carpal tunnel syndrome on both sides Fibromyalgia Morbid obesity (CMS/HCC) Penicillin allergy Resolved Problems Problem Noted Date Diagnosed Date Resolved Date Blood coagulation disorder 11/06/2017 0 06/07/2023 Mixed anxiety and depressive disorder 02/16/2015 06/08/2023 Encounters Date Type Department Care Team Description 04/21/2025 1:00 PM EST Office Visit [facility] OPTOMETRY [address] [place] [address] Prakash, Fernanda, OD Seronegative rheumatoid arthritis (CMS/HCC) (HCC) (Primary Dx); Long-term use of Plaquenil; White without pressure of peripheral retina of both eyes; Presbyopia of both eyes 04/21/2025 Travel 04/20/2025 Travel 04/09/2025 Refill [facility] [address] [place], [place] [phone] Lori Hernandez MD 02/28/2025 Telephone [facility] [address] [place], [place] [phone] Lori Hernandez MD may recall from Last 3 Months Immunizations Immunization Administration [...] Description 05/15/2025 1:15 PM EST Office Visit [facility] [address] [place] [address] Lori Hernandez MD [address] [place] [address] 10/21/2025 1:00 PM EDT Office Visit [facility] OPTOMETRY [address] [place] [address] Fernanda Rnadall, OD [address] [place] [address] Health Maintenance Due Date Last Done Comments CT Colonography 1975 Colonoscopy 1975 Colorectal Cancer Screening 1975 FIT DNA/Cologuard 1975 FIT 1975 FOBT 1975 Sigmoidoscopy 1975 Family Planning (PISQ) 11/02/1991 COVID-19 Vaccine ( season) 2025 08/06/2024, 05/11/2022, 05/21/2021, Additional history exists Influenza Vaccine (#1) 2025 , 02/22/2022, 03/05/2021, Additional history exists Disability Screening 08/06/2025 08/06/2024 Alcohol/Substance Use Screening 11/11/2025 11/11/2024 Depression Screening 11/11/2025 11/11/2024, 11/12/19 SDOH Screening 11/11/2025 11/11/2024 Tobacco Screening 01/10/2026 [...] 02/07/2007, Additional history exists HIV Screening Completed 01/07/2025, [...] EDT) Hepatitis C Antibody Nonreactive Nonreactive [facility] Comment:Antibodies to HCV no t detected; does not exclude early acuteHCV infection. Blood Venous blood specimen / Unknown 01/07/2025 11:29 AM EDT 01/07/2025 12:47 PM EDT Lori Mccann MD LAB BLOOD ORDERAB LES Final Result Performing Organization Address [facility]/ZIP Co de Phone Number [facility] [address] [place] [phone] * HIV-1/2 Antigen and Antibodies, Fourth Generation, with Reflexes (01/07/2025 11:29 AM EDT) HIV AB/AG Nonreactive Nonreactive [facility] Comment:HIV-1 p24 Ag and/or HIV-1/HIV-2 Ab not detected.A test result that is nonreactive does not exclude thepossibility of exposure to or infection with HIV-1 and/orHIV-2. Nonreactive results in this assay for individualswith prior exposure to HIV-1 and/or HIV-2 may be due toantigen and antibody levels that are below the limit ofdetection of this assay.The Oris4 HIV Ag/Ab Combo assay result andsupplemental assay results should be interpreted inconjunction with the patient's clinical presentation,history and other laboratory results. If the results areinconsistent with clinical evidence, additional testing issuggested to confirm the result. Blood Venous blood specimen / Unknown 01/07/2025 11:29 AM EDT 01/07/2025 12:47 PM EDT us Lori Mccann MD LAB BLOOD ORDERAB LES Final Result Performing Organization Address [facility]/ZIP Co de Phone Number [facility] [address] [place] [phone] * (ABNORMAL) Lipid Panel, Standard (01/07/2025 11:29 AM EDT) Triglycerides 48 <150 mg/dL [facility] Comment:Desirable Triglyceri de: less than 150 mg/dLBorderline High Triglyceride 150-199 mg/dLHigh Triglyceride: 200-499 mg/dLVery High Triglyceride: greater than or equal to 5OO mg/dL Cholesterol 171 <200 mg/dL [facility] Comment:Desirable Cholestero l: less than 200 mg/dLBorderline High Cholesterol: 200-239 mg/dLHigh Cholesterol: greater than 239 mg/dL LDL Cholesterol Calculated 110(H) <100 mg/dL [facility] Comment:Desirable LDL: less than 100 mg/dLNear Optimal/Above Optimal LDL: 110- 129 mg/dLBorderline High LDL: 130-159 mg/dLHigh LDL: 160-189 mg/dLVery High LDL: greater than or equal to 190 mg/dL HDL Cholesterol 52 >40 mg/dL [facility] Comment:Desirable HDL: great er than 40 mg/dL Note: This HDL assay may give artificially low results in patients with liver disease. Blood Venous blood specimen / Unknown 01/07/2025 11:29 AM EDT 01/07/2025 12:47 PM EDT Lori Mccann MD LAB BLOOD ORDERAB LES Final Result Performing Organization Address City/State/[facility] Co de Phone Number [facility] [address] [place] [phone] * BI Mammogram Screening Tomosynthesis Bilateral (10/30/2024 10:55 AM EDT) Anatomical Region Laterality Modality Breast Bilateral Mammography 10/30/2024 10:5 5 AM EDT Narrative 11/16/2024 3:10 PM EDT [address] [place] [address] Mammography Report Signed Patient: Lesley Gordon MR#: [id number] : 1975 Acct:[id number] Age/Sex: 48 / F ADM Date: 10/30/24 Loc: SO Attending Dr: Lori Mccann MD Ordering Physician: Lori Hernandez MD Re sults: 1Negative Date of Service: 10/30/24 Follow Up: 1 Year From Orig inal Mammogram Procedure(s): MM tomosynthesis screening BI Accession Number(s): [id number] cc: Lori Hernandez MD EXAMINATION: MM SCREENING [...] 11/16/24 1507 DD/ 1055 TD/TT: 10/30/24 1120 Neuropsychology Division Chief: Procedure Note Donotuseinterpreter, Image - 11/16/2024 Cas[facility] [address] [place] [address] Mammography Report Signed Patient: Monica GordonWVRadha#: [id number] : 1975Acct:[id number] Age/Sex: 48 / FADM Date: 10/30/24 Loc: SO Attending Dr: Lori Mccann MD Ordering Physician: Lori Hernandez sults: 1Negative Date of Service: 10/30/24Follow Up: 1 Year From Orig inal Mammogram Procedure(s): MM tomosynthesis screening BI Accession Number(s): [id number] cc: Lori Hernandez MD EXAMINATION: MM SCREENING [...] 11/16/24 1507 DD/ 1055 TD/TT: 10/30/24 1120 Neuropsychology Division Chief: Lori Mccann MD IMG BI PROCEDURES Edited Result - Final * Pap Smear (05/20/2021) Pap Negative for intraephithelial lesion or malignancy Negative for intraephithelial lesion or malignancy, Other HPV Undetected Historical Provider HEALTH MAINTENANCE Final Result from Last 3 Months or Most Recently Relevant to Health Maintenance Insurance [employer] Care Teams Quality Intern Relationship Specialty Start Date End Date Lori Hernandez MD [address] [place] [phone] PCP - General Internal Medicine 10/15/22
--- OUTSIDE RECORDS SUMMARY | 2025-04-23 12:04 | XMS_ITS | Encounter Summary ---
Author Organization [employer] Address [address] [place] [address] Care Team Providers Care Finisher [employer] Name Role Phone Lori Hernandez MD Primary Care Pro vider Encounter Details Date Type Department Care Team (Late st Contact Info) Description 02/10/2023 Abstract [facility] [address] [place] [address] [place] Social History Tobacco Use Types [...] 05/15/2025 1:15 PM EST Office Visit [facility] [address] [place], [place] [phone] Lori Hernandez MD [address] [place], [place] [phone] 10/21/2025 1:00 PM EDT Office Visit [facility] OPTOMETRY [address] [place] [address] Fernanda Randall, OD [address] [place] [address] documented as of this encounter Procedures Procedure [...] documented as of this encounter Care Teams Finisher [employer] Relationship Specialty Start Date End Date Lori Hernandez MD [address] [place] [phone] PCP - General Internal Medicine 10/15/22 documented as of this encounter
[2025-04-23 14:11] LABS: MANUAL DIFF FLAG NO
[2025-04-23 14:17] LABS: Hematocrit 40.7 % (37.0-47.0); Hemoglobin 13.3 g/dl (12.0-16.0); Imm Gran Abs Auto 0.01 X10*3/uL (0.00-0.03); Imm Gran Pct Auto 0.2 % (0.0-0.4); Lymphocytes Absolute Auto 1.2 X10*3/uL (1.2-4.9); Mean Corpuscular HGB Conc 32.7 g/dl (31.0-35.0); Mean Corpuscular Hemoglobin 30.9 pg (27.0-33.0); Mean Corpuscular Volume 94.7 fL (80.0-98.0); NRBC Abs Auto 0.000 X10*3/uL (0.0-0.012); NRBC Pct Auto 0.0 /100WBC (0.0-0.2); Platelet Count 180 X10*3/uL (160-400); Red Blood Count 4.30 X10*6/uL (4.20-5.50); White Blood Count 6.2 X10*3/uL (4.8-10.8)
[2025-04-23 14:53] LABS: Alanine Aminotransferase 17 U/L (0-31); Aspartate Amino Transferase 27 U/L (5-31); Estimated Glomerular Filt Rate > 60
== END 2025-04-23 09:17 | disposition home or self-care (01) ==
LOC: HO.HKASLDS 09:16
PROVIDERS: PCP Student in an Organized Health Care Education/Training Program; Visit Provider Internal Medicine Rheumatology
DX: M06.00 Rheumatoid arthritis without rheumatoid factor, unspecified site (principal); Z51.81 Encounter for therapeutic drug level monitoring; Z79.631 Long term (current) use of antimetabolite agent; Z79.899 Other long term (current) drug therapy
CPT/HCPCS: 36415; 82565; 84450; 84460; 85025; 85652; 86140

== ENCOUNTER 2025-04-23 09:16 | Outpatient (AMB) | payer MEDICAID, SELFPAY ==
--- NOTE | 2025-04-23 09:33 | MHC.OFFVIS ---
Vital Signs 04/23/25 09:36 Height 5 ft 1 in Weight 228 lb 6.382 oz BMI 43.2 BP 150/80 H Blood Pressure Location Lt brachial Position Sitting Pulse 68 Pulse Source Pulse Oximeter Pulse Oximetry (%) 95 Oxygen Delivery Method Room Air Intake Visit Reasons: 3months Intake Note: Patient presents for RA follow up today. Accompanied by: Self / Same As Patient Allergies aspirin (ASPIRIN) Allergy (Intermediate, Verified 01/21/25 09:25) RASH codeine (CODEINE) Allergy (Intermediate, Verified 01/21/25 09:25) VOMITING, nausea and vomiting Penicillins (PENICILLINS) Allergy (Intermediate, Verified 01/21/25 09:25) RASH HPI HPI 3months: Details: She feels well. No new joint swelling. She has a few minutes of morning stiffness. No recent infections. 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 Nipple discharge Suppurative hidradenitis Morbid obesity Seronegative rheumatoid arthritis Hx of hidradenitis suppurativa History of fracture of clavicle Back pain Fibromyalgia Arthritis Surgical History Hx of tubal ligation Family History Maternal Grandfather Diabetes Brother Diabetes Stroke Brother Diabetes Mother HTN (hypertension) Social History Alcohol intake: never Patient Tobacco Use Status: Former Tobacco user Female Reproductive History Menstrual Age of Menarche: 11 Physical Exam Vital Signs: Last Vital Signs Pulse 68 04/23/25 09:36 BP 150/80 H 04/23/25 09:36 Pulse Ox 95 04/23/25 09:36 Oxygen Delivery Method Room Air 04/23/25 09:36 BMI result Body Mass Index 43.2 Const Other: General: Comfortable CVS: RRR Respiratory: clear to auscultation bilaterally. Good respiratory effort Skin: No lesions seen MSK: No tender joints. No synovitis. No tenderness to palpation of trochanteric bursae. No crepitus. Normal range of motion of upper extremities and lower extremities. Assessment & Plan Assessment & Plan (1) Seronegative rheumatoid arthritis: Comment: Inflammatory arthritis is controlled on current regimen. Rheumatology history: Seronegative. Diagnosed at age 34. Initially on monotherapy for methotrexate for a long time. She developed panic attacks with subcutaneous methotrexate. Leflunomide added 2021 to present. Hydroxychloroquine added 07/25/2021 to present. Code(s): M06.00 - Rheumatoid arthritis without rheumatoid factor, unspecified site Category: Medical Plan: Labs for disease and drug monitoring on high-risk medication ordered Continue hydroxychloroquine 400 mg daily. VF 2022. She had visual field testing in October. She had eye exam yesterday. 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 Dispense 90 day supply. 400 mg (2 x 200 mg) PO DAILY 180 tabs 1RF leflunomide Dispense 90 day supply. 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
[2025-04-23 09:36] VITALS: BP 150/80; PULSE 68; O2SAT 95; BMI 43.2
== END 2025-04-23 09:57 | disposition home or self-care (01) ==
LOC: HO.RHES 09:17
PROVIDERS: PCP Student in an Organized Health Care Education/Training Program; Visit Provider Internal Medicine Rheumatology
DX: M06.00 Rheumatoid arthritis without rheumatoid factor, unspecified site (principal); Z79.899 Other long term (current) drug therapy
CPT/HCPCS: 99214